=== PATIENT | female | born 1950 | race Caucasian/White ===

== ENCOUNTER → 2023-12-24 10:45 | Outpatient (REF) | payer MEDICARE, OTHER, SELFPAY | LOC: RAD 10:45 | PROVIDERS: ATTENDING PHYSICIAN Surgery Vascular Surgery; FAMILY PHYSICIAN Family Medicine | DX: Z01.818 Encounter for other preprocedural examination (principal); I82.611 Acute embolism and thrombosis of superficial veins of right upper extremity | CPT/HCPCS: 93986 ==

== ENCOUNTER 2025-03-24 13:45 | Emergency (ER) | payer MEDICARE, OTHER, SELFPAY ==
[2025-03-24] VITALS (11 sets, daily range): BP systolic 120–206; BP diastolic 61–82; BMI 24.2
[2025-03-24 14:25] LABS: % Basophils 1.4 % (0-2); % Immature Granulocytes 0.2 % (0-0.5); % Lymphocytes 25.5 % (20.5-51.1); % Monocytes 6.5 % (1.7-9.3); % Neutrophils 59.4 % (42.2-75.2); Absolute Basophils 0.1 10^3/uL (0-0.2); Absolute Eosinophils 0.3 10^3/uL (0-0.7); Absolute Lymphocytes 1.1 10^3/uL (1.2-3.4); Absolute Monocytes 0.3 10^3/uL (0.1-0.6); Absolute Neutrophils 2.6 10^3/uL (1.4-6.5); Hemoglobin 11.7 g/dL (12.0-16.0); Mean Corp Hgb Conc. 33.4 g/dL (33.0-37.0); Mean Corpuscular Hgb 32.3 pg (27.0-31.0); Mean Corpuscular Volume 96.7 fL (81.0-99.0); Mean Platelet Volume 10.5 fL (7.4-10.4); Nucleated Red Blood Cells % 0 %; Platelet Count 147 10^3/uL (130-400); Red Blood Cell Count 3.62 10^6/uL (4.20-5.40); Red Cell Dist. Width 12.8 % (11.5-14.5); White Blood Cell Count 4.4 10^3/uL (4.8-10.8)
[2025-03-24 14:46] LABS: Troponin I < 0.012 ng/ml
[2025-03-24 15:08] LABS: ALT (SGPT) 13 U/L (0-35); AST (SGOT) 15 U/L (14-36); Albumin 3.8 g/dl (3.5-5.0); Alkaline Phosphatase 100 U/L (38-126); Blood Urea Nitrogen 16 mg/dl (7-17); Calcium 9.2 mg/dl (8.4-10.2); Carbon Dioxide 30 mmol/L (22-30); Chloride 100 mmol/L (98-107); Glucose 104 mg/dl (70-99); Potassium 3.9 mmol/L (3.5-5.1); Sodium 140 mmol/L (135-145); Total Bilirubin 1.1 mg/dl (0.2-1.3); Total Protein 6.4 g/dl (6.3-8.2); eGFR 19.02
--- NOTE | 2025-03-24 15:30 | ED.GENMED ---
History of Present Illness
<Stacia Salmon PA-C - Last Filed: 03/26/25 00:13>
General
Chief Complaint: Chest Problem
Source: patient and spouse ( at bedside)
Exam Limitations: none
Time Seen by Provider: 03/24/25 14:18
Nursing documentation reviewed up to this point in time: agreed with
History of Present Illness
History of Present Illness:
Patient is a 74-year-old female with history of CVA, atrial fibrillation on Eliquis, CHF, CAD, hypertension, hyperlipidemia, CKD on dialysis, bilateral BKA who presents to the emergency department from dialysis session with complaints of chest
tightness, shortness of breath, and heart palpitations. Patient states chest tightness has essentially resolved prior to arrival to ED. She was unable to complete full dialysis session secondary to symptoms. She denies any fever, cough, abdominal
pain or tearing back pain.
She does report a a burning phantom pain in her bilateral lower extremities.
Patient has been receiving dialysis for 2 years and has never experienced similar symptoms.
Past History
<Stacia Salmon PA-C - Last Filed: 03/26/25 00:13>
Past History
ED Past Medical History: Arrthythmia (Atrial fib), CAD, CHF, CVA (X 2), GERD, HTN, Hypercholesterolemia, IDDM, [place], Renal failure (Will be starting dialysis), Psychiatric (anxiety, depression) and Other (Gastritis with intractiable N/V, Rectal
abscess, Colitis, Indwelling vasquez, UTI, Cellulitis, )
ED Past Surgical History: Cardiac (Angioplasty and stenting X2), , Gynecological and Other (Bilateral BK amputation, Prior-partial right foot amputation)
Patient has exhibited threatening behavior?: No
PSI?: No
Social History
Tobacco: Non-smoker
Alcohol: None
Drug: None
Personal:
Living: with family
Employment: Disabled
Family History
Family History: Hypertension
Review of Systems
<Stacia Salmon PA-C - Last Filed: 03/26/25 00:13>
Review of Systems
Allergies reviewed?: Yes
All Other Systems: ROS reviewed and negative except as documented in HPI and ROS
Phy Exam
<Stacai Salmon PA-C - Last Filed: 03/26/25 00:13>
Physical Exam
Physical Exam:
Vitals: Hypertensive, otherwise vital signs are stable
General: Patient is well appearing, no acute distress. Nontoxic appearing
Skin: Warm and dry, no rashes or lesions
Head: Normocephalic, atraumatic
Eyes: Sclera nonicteric. EOMs intact. Pupils equal round and reactive to light bilaterally. No nystagmus.
Throat: Protecting airway
Neck: Normal ROM, no cervical spine tenderness, no meningismus
Cardiac: Regular rate and rhythm, no murmurs. Dialysis catheter on left chest wall
Pulm: Normal respiratory effort, no wheezes, rales, rhonchi heard on exam.
Abdomen: Abdomen soft and nontender
Extremities: Bilateral BKA
Neuro: AAOx3. Normal finger to nose. No focal deficits
Psychiatric: Normal affect.
Course
<Stacia Salmon PA-C - Last Filed: 03/26/25 00:13>
Orders/Labs/Results
Orders:
Orders
03/24/25 13:48
Electrocardiogram (*1) Urgent
Reason for Study: Chest Pain
EKG- Treatment ONCE
03/24/25 14:09
Complete Blood Count/With Diff Urgent
Comprehensive Metabolic Panel Urgent
Troponin I Urgent
03/24/25 14:48
CR Chest - 2 Views Urgent
Comment:
Reason For Exam: SOB, chest tightness
03/24/25 15:55
CT Head W/o Iv Contrast Urgent
Comment:
Reason For Exam: dizziness, HTN
03/24/25 17:10
Electrocardiogram (*1) Urgent
Reason for Study: Chest Pain
EKG- Treatment ONCE
03/24/25 18:01
Troponin I Urgent
03/24/25 18:04
Straight cath- Treatment ONCE
03/24/25 18:07
EKG- Treatment ONCE
03/24/25 18:22
Urinalysis Reflex To Culture Urgent
Date Specimen was Collected: 03/24/25
Time Specimen was Collected: 18:21
Urine Microscopic Reflex Cult Urgent
Urine Culture Urgent
[facility] Source: U
Specimen Description:
Date Specimen was Collected: 03/24/25
Time Specimen was Collected: 18:21
03/24/25 19:16
Amoxicillin 500 mg/Clav 125 mg [Augmentin 500 mg/125 mg] 1 tablet PO NOW STA
Abnormal Lab Results
03/24/25 03/24/25
14:09 18:22
WBC 4.4 L 10^3/uL
(4.8-10.8)
RBC 3.62 L 10^6/uL
(4.20-5.40)
Hgb 11.7 L g/dL
(12.0-16.0)
Hct 35.0 L %
(37.0-47.0)
MCH 32.3 H pg
(27.0-31.0)
MPV 10.5 H fL
(7.4-10.4)
Absolute Lymphs (auto) 1.1 L 10^3/uL
(1.2-3.4)
Eosinophils % 7.0 H %
(0-6)
Creatinine 2.6 H mg/dL
(0.6-1.0)
Glucose 104 H mg/dl
(70-99)
Ur Occult Blood Reflex 2+ A
(Negative)
Leukocyte Esterase Rfl 3+ A
(Negative)
Urine WBC (Reflex) >100 A /HPF
(0-5)
Urine Bacteria (Reflex) Many A
(Negative)
Urine Albumin (Reflex) 2+ A
(Neg - Trace)
03/24/25 14:09
03/24/25 14:09
Vital Signs
Initial and Last Documented VS:
Initial Vital Signs
Temp Pulse Resp BP Pulse Ox
98.0 F 65 16 166/76 93
03/24/25 13:46 03/24/25 13:46 03/24/25 13:46 03/24/25 13:46 03/24/25 13:46
Last Documented Vital Signs
Temp Pulse Resp BP Pulse Ox
98.0 F 64 14 159/63 95
03/24/25 13:46 03/24/25 19:30 03/24/25 19:30 03/24/25 19:00 03/24/25 19:30
<Wilmar Mejia, DO - Last Filed: 03/24/25 19:44>
Orders/Labs/Results
Orders:
Orders
03/24/25 13:48
Electrocardiogram (*1) Urgent
Reason for Study: Chest Pain
EKG- Treatment ONCE
03/24/25 14:09
Complete Blood Count/With Diff Urgent
Comprehensive Metabolic Panel Urgent
Troponin I Urgent
03/24/25 14:48
CR Chest - 2 Views Urgent
Comment:
Reason For Exam: SOB, chest tightness
03/24/25 15:55
CT Head W/o Iv Contrast Urgent
Comment:
Reason For Exam: dizziness, HTN
03/24/25 17:10
Electrocardiogram (*1) Urgent
Reason for Study: Chest Pain
EKG- Treatment ONCE
03/24/25 18:01
Troponin I Urgent
03/24/25 18:04
Straight cath- Treatment ONCE
03/24/25 18:07
EKG- Treatment ONCE
03/24/25 18:22
Urinalysis Reflex To Culture Urgent
Date Specimen was Collected: 03/24/25
Time Specimen was Collected: 18:21
Urine Microscopic Reflex Cult Urgent
Urine Culture Urgent
[facility] Source: U
Specimen Description:
Date Specimen was Collected: 03/24/25
Time Specimen was Collected: 18:21
03/24/25 19:16
Amoxicillin 500 mg/Clav 125 mg [Augmentin 500 mg/125 mg] 1 tablet PO NOW STA
Abnormal Lab Results
03/24/25 03/24/25
14:09 18:22
WBC 4.4 L 10^3/uL
(4.8-10.8)
RBC 3.62 L 10^6/uL
(4.20-5.40)
Hgb 11.7 L g/dL
(12.0-16.0)
Hct 35.0 L %
(37.0-47.0)
MCH 32.3 H pg
(27.0-31.0)
MPV 10.5 H fL
(7.4-10.4)
Absolute Lymphs (auto) 1.1 L 10^3/uL
(1.2-3.4)
Eosinophils % 7.0 H %
(0-6)
Creatinine 2.6 H mg/dL
(0.6-1.0)
Glucose 104 H mg/dl
(70-99)
Ur Occult Blood Reflex 2+ A
(Negative)
Leukocyte Esterase Rfl 3+ A
(Negative)
Urine WBC (Reflex) >100 A /HPF
(0-5)
Urine Bacteria (Reflex) Many A
(Negative)
Urine Albumin (Reflex) 2+ A
(Neg - Trace)
03/24/25 14:09
03/24/25 14:09
Vital Signs
Initial and Last Documented VS:
Initial Vital Signs
Temp Pulse Resp BP Pulse Ox
98.0 F 65 16 166/76 93
03/24/25 13:46 03/24/25 13:46 03/24/25 13:46 03/24/25 13:46 03/24/25 13:46
Last Documented Vital Signs
Temp Pulse Resp BP Pulse Ox
98.0 F 64 14 159/63 95
03/24/25 13:46 03/24/25 19:30 03/24/25 19:30 03/24/25 19:00 03/24/25 19:30
<Stacia Salmon PA-C - Last Filed: 03/26/25 00:13>
MDM/Problems Addressed
Differential Diagnosis Includes:
Not limited to: Acute dehydration, medication side effect, electrolyte abnormality, viral illness, ACS, etc.
MDM/Problems Addressed:
74 year-old female with history as documented presents from dialysis with chest tightness and lightheadedness. Chest tightness and shortness breath mainly resolved by arrival ED. Patient has stable vital signs. Physical exam as above. Differential
broad will check EKG, screening labs, chest x-ray. Plan to trend troponins. Patient received fluids at dialysis prior to ED eval. Will hold further fluids at this time.
Update: Labs reviewed. No acute abnormalities. Initial troponin undetectable with nonischemic EKG. CXR NAD. On reassessment � Patient reports sensation of movement now including the ceiling light moving in front of her and feels that she is lifting
off the bed. Patient�s blood pressure did elevate acutely � does not seem like typical vertigo. Will check CT had to rule out intracranial abnormality. Patient otherwise stable and remains neurologically intact on exam.
Update: CT head without acute findings. Patients symptoms have resolved without intervention. Workup thus far essentially negative. Troponin undetectable x2. Unknown etiology for patients symptoms today although do not suspect central process or
acute cardiac emergency. Patient was found to have a UTI after complaining of dysuria. While I do not suspect this is etiology for today�s symptoms, will treat with antibiotics. Based on prior culture sensitivity and multiple antibiotic allergies
will start Augmentin. At this point feel patient stable for discharge home. Close return precautions discussed. Case discussed w/ attending physician.
Chronic conditions affecting care:
CKD on dialysis, atrial fibrillation on Eliquis
Acute Exacerbation and/or Progression of Chronic Illness:
N/A
<Stacia Salmon PA-C - Last Filed: 03/26/25 00:13>
*Radiology
Radiology exam reviewed: preliminary read by ED provider (CXR reviewed by me - no acute abnormalities) and radiology read reviewed
*Pulse Oximetry
Patient hypoxic: no
*EKG
Interpreted by ED Provider?: Yes
EKG Intrepretation Date: 03/24/25
Interpretation: abnormal
Comparison EKG: no changes
Heart Rate: 58
Rate: bradycardiac
Rhythm: sinus
Ischemia: no ischemia
*Asset Availability Leader Interpretation
Rate: normal
Interpretation: normal
Heart Rate: 60
Rhythm: sinus
*Critical Care Note
Total Time (30-74mins, 75-104mins- exclusive of procedures): Not Applicable
ED Attending Note
<Stacia Salmon PA-C - Last Filed: 03/26/25 00:13>
-
Portions of this chart may have been created with voice recognition software.� Occasional wrong word or��sound alike� substitutions may have occurred due to the inherent limitations of voice recognition software.
<Wilmar Mejia DO - Last Filed: 03/24/25 19:44>
ED Attending Note
I performed the substantive portion of visit, reviewed & personally made and approve the management plan that is documented in note by myself or ANANT.: Yes
ED Attending Note:
Case reviewed. Labs reviewed.
Discharge Plan
Departure
Patient Disposition: Home (Routine Discharge)
Date of Disposition: 03/24/25
Time of Disposition: 19:25
Patient with high blood pressure during this ER visit?: Yes
Condition: Good
Covid-19: Not Applicable
Discharge Problem:
Lightheadedness, Chest pain, Acute UTI
Instructions: Chest Pain (DC), Urinary tract infection in adults - ED discharge instructions, BLOOD PRESSURE
Prescriptions:
New
amoxicillin-pot clavulanate [Augmentin] 500-125 mg tablet
1 tab PO BID 5 Days Qty: 10 0RF
No Action
insulin aspart U-100 [Novolog FlexPen U-100 Insulin] 300 UNITS/3 ML insulin pen
2 sliding scale dose SC AC
gabapentin 100 MG capsule
100 mg PO BID
atorvastatin 40 MG tablet
40 mg PO HS
docusate sodium [Colace] 100 mg Capsule
100 mg PO QPM
senna 8.6 mg Capsule
8.6 mg PO DAILY
amiodarone [Pacerone] 200 MG tablet
200 mg PO DAILY
cholecalciferol (vitamin D3) [Vitamin D3] 25 mcg (1,000 unit) Capsule
25 mcg PO MOWEFR
Eliquis 5 mg Tablet
5 mg PO BID
Probiotic 3 billion cell Capsule
3,000 mmu cells PO DAILY
polyethylene glycol 3350 [HealthyLax] 17 gram powder in packet
17 g PO DAILY
tamsulosin 0.4 mg capsule
0.4 mg PO DAILY
cetirizine [24Hour Allergy] 10 mg tablet
10 mg PO DAILY Qty: 30 0RF
sertraline 50 MG tablet
50 mg PO DAILY 0RF
Referrals:
Adolfo Cruz DO [Family Provider] - Follow up in 5-7 days
Activity Restrictions/Additional Instructions:
RETURN TO THE EMERGENCY DEPARTMENT WITH ANY CHEST PAIN, SHORTNESS OF BREATH, DIZZINESS, FEVERS, SEVERE ABDOMINAL PAIN, OR ANY OTHER CONCERNS
- As discussed�your urine is infected in the emergency department. We have started you on a course of Augmentin that you should take twice a day for the next 5 days. You should not take this on an empty stomach. Please return with any signs of
allergic reaction.
- Your CT head and chest x-ray showed no acute abnormalities.
- Continue to take your medications as prescribed. Continue dialysis as scheduled. Stay well-hydrated.
- Follow-up with primary care for further evaluation/management and to ensure that symptoms are improving
Monitor your symptoms closely and return to the emergency department with any acute worsening/new symptoms or any other concerns
Interventions
Interventions:
*Risk Screen - Suicide Last Done: 03/24/25 15:58
*General Assessment Last Done: 03/24/25 15:56
*Neglect/Abuse Screening Last Done: 03/24/25 15:58
*ED COVID-19 Vaccine History Last Done: 03/24/25 15:56
*Nursing Disposition Last Done: 03/24/25 20:34
ED- Cardiac Assessment Last Done: 03/24/25 16:00
ED- Pulmonary Assessment Last Done: 03/24/25 16:00
Discharge Date and Time
Discharge Date/Time: 03/24/25 20:35
Print Language: ROMANSH
[2025-03-24 18:31] LABS: Urine Albumin 2+ (Neg - Trace); Urine Bilirubin Negative (Negative); Urine Character Clear (Clear); Urine Color Yellow; Urine Glucose Negative (Negative); Urine Ketone Negative (Negative); Urine Leukocyte 3+ (Negative); Urine Nitrite Negative (Negative); Urine Occult Blood 2+ (Negative); Urine Urobilinogen Negative (Neg - 1+)
[2025-03-24 18:32] LABS: Troponin I < 0.012 ng/ml
[2025-03-24 18:45] LABS: Urine Bacteria Many (Negative); Urine Red Blood Cell 0-2 /HPF (0-2); Urine Squamous Cell 0-2 /LPF (Few); Urine White Cell >100 /HPF (0-5)
[2025-03-24] MEDS: AUGMENTIN 500 MG/125 MG 1 TABLET PO (19:30)
== END 2025-03-24 20:35 | disposition home or self-care (01) ==
LOC: EMR 13:45
PROVIDERS: Physician Assistant; EMERGENCY PHYSICIAN Emergency Medicine; FAMILY PHYSICIAN Family Medicine
DX: N39.0 Urinary tract infection, site not specified (principal); R07.89 Other chest pain; R42 Dizziness and giddiness; E11.22 Type 2 diabetes mellitus with diabetic chronic kidney disease; I13.2 Hypertensive heart and chronic kidney disease with heart failure and with stage 5 chronic kidney disease, or end stage renal disease; I50.9 Heart failure, unspecified; N18.6 End stage renal disease; Z99.2 Dependence on renal dialysis; E78.00 Pure hypercholesterolemia, unspecified; I25.10 Atherosclerotic heart disease of native coronary artery without angina pectoris; I48.91 Unspecified atrial fibrillation; Z79.01 Long term (current) use of anticoagulants; Z79.4 Long term (current) use of insulin; Z86.73 Personal history of transient ischemic attack (TIA), and cerebral infarction without residual deficits; Z87.19 Personal history of other diseases of the digestive system; Z89.511 Acquired absence of right leg below knee; Z89.512 Acquired absence of left leg below knee; Z95.5 Presence of coronary angioplasty implant and graft
CPT/HCPCS: 99285; 70450; 71046; 80053; 81003; 81015; 84484; 85025; 87077; 87086; 93005

== ENCOUNTER → 2025-04-29 09:55 | Outpatient (REF) | payer MEDICARE, OTHER, SELFPAY | LOC: RCS 09:55 | PROVIDERS: ATTENDING PHYSICIAN Internal Medicine; FAMILY PHYSICIAN Family Medicine | DX: I48.0 Paroxysmal atrial fibrillation (principal); I34.0 Nonrheumatic mitral (valve) insufficiency; I50.32 Chronic diastolic (congestive) heart failure; I25.2 Old myocardial infarction | CPT/HCPCS: 93306 ==

== ENCOUNTER 2025-06-20 21:16 | Inpatient (IN) | payer MEDICARE, OTHER, SELFPAY ==
[2025-06-20 13:11] VITALS: BP 166/66
[2025-06-20 15:11] VITALS: BP 176/89
[2025-06-20 15:34] VITALS: BMI 23.7
--- NOTE | 2025-06-20 15:44 | ED.GENMED ---
History of Present Illness
<BIJAN Figueroa - Last Filed: 06/21/25 17:24>
General
Chief Complaint: Back Pain
Source: patient
Exam Limitations: none
Time Seen by Provider: 06/20/25 14:51
Nursing documentation reviewed up to this point in time: agreed with
History of Present Illness
History of Present Illness:
Patient is a 74-year-old female with past medical history of diabetes, bilateral lower extremity amputations, end-stage renal disease on dialysis,(mwf) CAD CHF hypertension hyperlipidemia IN CVA presents to the ER for evaluation. Patient reports
for the past 1-1/2 weeks she has had right-sided back pain which is worse over the past 2 days. She has pain to the right back/mid back scacpular region hich wraps around to her right side and right breast. She reports pain is worse with taking a
deep breath twisting turning. She is on eliquis for afib and has not missed dose.
She also complains of some burning with urination off-and-on for the past week but only make small amt of urine. She does complain of some burning with urination and then gets chills after.
Past History
<BIJAN Figueroa - Last Filed: 06/21/25 17:24>
Past History
ED Past Medical History: Arrthythmia (Atrial fib), CAD, CHF, CVA (X 2), GERD, HTN, Hypercholesterolemia, IDDM, IN, Renal failure (Will be starting dialysis), Psychiatric (anxiety, depression) and Other (Gastritis with intractiable N/V, Rectal
abscess, Colitis, Indwelling vasquez, UTI, Cellulitis, )
ED Past Surgical History: Cardiac (Angioplasty and stenting X2), , Gynecological and Other (Bilateral BK amputation, Prior-partial right foot amputation)
Patient has exhibited threatening behavior?: No
PSI?: No
Social History
Tobacco: Non-smoker
Alcohol: None
Drug: None
Personal:
Living: with family
Employment: Disabled
Family History
Family History: Hypertension
Phy Exam
<BIJAN Figueroa - Last Filed: 06/21/25 17:24>
General Physical Exam
General Presentation: no apparent distress
General age: appears stated age
General Skin: warm and dry
General Habitus: elderly
General Mental: alert
General Hydration: appears well hydrated
Cardiovascular Exam
Cardiovascular Exam: regular rate/rhythm, no murmur and normal peripheral pulses
Pulmonary Exam
Pulmonary Exam: lungs clear and no respiratory distress
Gastrointestinal Exam
Gastrointestinal Exam: non tender and soft
Neurological Exam
Neurological Exam: alert and oriented x3
Musculoskeletal Exam
Musculoskeletal Exam: other (+ b/l bka )
Skin Exam
Skin Exam: normal color and warm/dry
Psychiatric Exam
Psychiatric Exam: normal mood/affect
Course
<BIJAN Figueroa - Last Filed: 06/21/25 17:24>
Orders/Labs/Results
Orders:
Orders
06/20/25 Dinner
Regular
At Your Request: Full Participation
06/20/25 15:50
Electrocardiogram (*1) Stat
Reason for Study: Other
Other Reason for Exam: chest pain
CT Pe/abd/pel W Urgent
Reason For Exam: right back pain radiating to chest, right flank pain
Bladder Scan- Treatment ONCE
Cardiac Monitoring- Treatment ONCE
EKG- Treatment ONCE
IV Insert/Care/Rem.- Treatment PRN
Pharmacy Request to Place See Dose Instructions PO NOW STA
Discontinue all Active Warfarin orders?: Yes
06/20/25 16:[address] See Dose Instructions IV DIRECTED
06/20/25 16:03
UA Reflex to Culture [Urinalysis Reflex To Culture] Urgent
Date Specimen was Collected: 06/20/25
Time Specimen was Collected: 16:02
Urine Microscopic Reflex Cult Urgent
Urine Culture Urgent
ROSAURA Source: U
Specimen Description:
Date Specimen was Collected: 06/20/25
Time Specimen was Collected: 16:02
06/20/25 16:41
CMP [Comprehensive Metabolic Panel] Urgent
Complete Blood Count/With Diff Urgent
06/20/25 17:09
Morphine Sulfate 4 mg .ROUTE .STK-MED ONE
06/20/25 17:11
Morphine Sulfate 4 mg IV NOW STA
06/20/25 18:18
CefTRIAXone [Rocephin] 1,000 mg IV NOW STA
06/20/25 20:35
Admit/Transfer Patient As Directed
Co-Sign Provider:
Level of Care: Inpatient admission
Assign to:: Medical/Surgical
Physician / Group: christy
Diagnosis: uti
Reason for Hospitalization: uti
Expected length of stay greater than two midnights?: Yes
ELOS- Estimated Length of Stay in days: 2
I certify the patient meets the requirements for IP care: Yes
Code Status As Directed
Resuscitation Status: Do not resuscitate
Reached after discussion with pt or family/Healthcare POA: Yes
PRN Pain Medication Management As Directed
May give lesser potent ordered pain med per pt: Yes
preference::
Protocol:: Medication orders for pain may be administered in a
manner that supports deferring to patient preference
when the pt is:
- Requesting an ordered lesser potent pain medication.
Least to most potent pain medications are defined
as: acetaminophen < NSAID < tramadol < opioids
(morphine, oxycodone, hydromorphone).
- Requesting a lesser dose of the same medication IF
ORDERED.
- Requesting a less intrusive route of administration
if both routes are prescribed by the provider (PO <
IV).
06/20/25 20:36
DNR Bracelet Application ONCE
06/20/25 22:04
HYDROmorphone [Dilaudid] 0.5 mg IV Q4HPRN PRN
06/20/25 22:04
VTE Contraindication Routine
VTE Mechanical Device Contraindication: Medical Contraindication
Pharmocologic Contraindication: Medical Contraindication
Activity As Directed
Activity Level: As Tolerated
Vital Signs As Directed
Frequency: Per unit guidelines
06/21/25 07:29
Complete Blood Count/With Diff IN AM
Comprehensive Metabolic Panel IN AM
06/21/25 20:00
CefTRIAXone [Rocephin] 1,000 mg IV Q24H
Abnormal Lab Results
06/20/25 06/20/25
16:03 16:41
RBC 3.51 L 10^6/uL
(4.20-5.40)
Hgb 11.3 L g/dL
(12.0-16.0)
Hct 34.3 L %
(37.0-47.0)
MCH 32.2 H pg
(27.0-31.0)
MCHC 32.9 L g/dL
(33.0-37.0)
MPV 10.9 H fL
(7.4-10.4)
Absolute Lymphs (auto) 0.9 L 10^3/uL
(1.2-3.4)
Lymphocytes % 19.0 L %
(20.5-51.1)
Eosinophils % 8.5 H %
(0-6)
Carbon Dioxide 31 H mmol/L
(22-30)
BUN 28 H mg/dl
(7-17)
Creatinine 4.7 H* mg/dL
(0.6-1.0)
Glucose 105 H mg/dl
(70-99)
AST 12 L U/L
(14-36)
Ur Occult Blood Reflex 3+ A
(Negative)
Leukocyte Esterase Rfl 3+ A
(Negative)
Urine WBC (Reflex) >100 A /HPF
(0-5)
Urine Bacteria (Reflex) Many A
(Negative)
Urine Albumin (Reflex) 3+ A
(Neg - Trace)
06/20/25 16:41
06/20/25 16:41
Vital Signs
Initial and Last Documented VS:
Initial Vital Signs
Temp Pulse Resp BP Pulse Ox
97.8 F 60 16 166/66 99
06/20/25 13:11 06/20/25 13:11 06/20/25 13:11 06/20/25 13:11 06/20/25 13:11
Last Documented Vital Signs
Temp Pulse Resp BP Pulse Ox
97.8 F 55 16 158/71 98
06/21/25 15:30 06/21/25 15:30 06/21/25 15:30 06/21/25 15:30 06/21/25 15:30
<Cayla Santos PA-C - Last Filed: 06/21/25 03:13>
Orders/Labs/Results
Orders:
Orders
06/20/25 Dinner
Regular
At Your Request: Full Participation
06/20/25 15:50
Electrocardiogram (*1) Stat
Reason for Study: Other
Other Reason for Exam: chest pain
CT Pe/abd/pel W Urgent
Reason For Exam: right back pain radiating to chest, right flank pain
Bladder Scan- Treatment ONCE
Cardiac Monitoring- Treatment ONCE
EKG- Treatment ONCE
IV Insert/Care/Rem.- Treatment PRN
Pharmacy Request to Place See Dose Instructions PO NOW STA
Discontinue all Active Warfarin orders?: Yes
06/20/25 16:[address] See Dose Instructions IV DIRECTED
06/20/25 16:03
UA Reflex to Culture [Urinalysis Reflex To Culture] Urgent
Date Specimen was Collected: 06/20/25
Time Specimen was Collected: 16:02
Urine Microscopic Reflex Cult Urgent
Urine Culture Urgent
ROSAURA Source: U
Specimen Description:
Date Specimen was Collected: 06/20/25
Time Specimen was Collected: 16:02
06/20/25 16:41
CMP [Comprehensive Metabolic Panel] Urgent
Complete Blood Count/With Diff Urgent
06/20/25 17:09
Morphine Sulfate 4 mg .ROUTE .STK-MED ONE
06/20/25 17:11
Morphine Sulfate 4 mg IV NOW STA
06/20/25 18:18
CefTRIAXone [Rocephin] 1,000 mg IV NOW STA
06/20/25 20:35
Admit/Transfer Patient As Directed
Co-Sign Provider:
Level of Care: Inpatient admission
Assign to:: Medical/Surgical
Physician / Group: christy
Diagnosis: uti
Reason for Hospitalization: uti
Expected length of stay greater than two midnights?: Yes
ELOS- Estimated Length of Stay in days: 2
I certify the patient meets the requirements for IP care: Yes
Code Status As Directed
Resuscitation Status: Do not resuscitate
Reached after discussion with pt or family/Healthcare POA: Yes
PRN Pain Medication Management As Directed
May give lesser potent ordered pain med per pt: Yes
preference::
Protocol:: Medication orders for pain may be administered in a
manner that supports deferring to patient preference
when the pt is:
- Requesting an ordered lesser potent pain medication.
Least to most potent pain medications are defined
as: acetaminophen < NSAID < tramadol < opioids
(morphine, oxycodone, hydromorphone).
- Requesting a lesser dose of the same medication IF
ORDERED.
- Requesting a less intrusive route of administration
if both routes are prescribed by the provider (PO <
IV).
06/20/25 20:36
DNR Bracelet Application ONCE
06/20/25 22:04
HYDROmorphone [Dilaudid] 0.5 mg IV Q4HPRN PRN
06/20/25 22:04
VTE Contraindication Routine
VTE Mechanical Device Contraindication: Medical Contraindication
Pharmocologic Contraindication: Medical Contraindication
Activity As Directed
Activity Level: As Tolerated
Vital Signs As Directed
Frequency: Per unit guidelines
06/21/25 07:29
Complete Blood Count/With Diff IN AM
Comprehensive Metabolic Panel IN AM
06/21/25 20:00
CefTRIAXone [Rocephin] 1,000 mg IV Q24H
Abnormal Lab Results
06/20/25 06/20/25
16:03 16:41
RBC 3.51 L 10^6/uL
(4.20-5.40)
Hgb 11.3 L g/dL
(12.0-16.0)
Hct 34.3 L %
(37.0-47.0)
MCH 32.2 H pg
(27.0-31.0)
MCHC 32.9 L g/dL
(33.0-37.0)
MPV 10.9 H fL
(7.4-10.4)
Absolute Lymphs (auto) 0.9 L 10^3/uL
(1.2-3.4)
Lymphocytes % 19.0 L %
(20.5-51.1)
Eosinophils % 8.5 H %
(0-6)
Carbon Dioxide 31 H mmol/L
(22-30)
BUN 28 H mg/dl
(7-17)
Creatinine 4.7 H* mg/dL
(0.6-1.0)
Glucose 105 H mg/dl
(70-99)
AST 12 L U/L
(14-36)
Ur Occult Blood Reflex 3+ A
(Negative)
Leukocyte Esterase Rfl 3+ A
(Negative)
Urine WBC (Reflex) >100 A /HPF
(0-5)
Urine Bacteria (Reflex) Many A
(Negative)
Urine Albumin (Reflex) 3+ A
(Neg - Trace)
06/20/25 16:41
06/20/25 16:41
Vital Signs
Initial and Last Documented VS:
Initial Vital Signs
Temp Pulse Resp BP Pulse Ox
97.8 F 60 16 166/66 99
06/20/25 13:11 06/20/25 13:11 06/20/25 13:11 06/20/25 13:11 06/20/25 13:11
Last Documented Vital Signs
Temp Pulse Resp BP Pulse Ox
97.8 F 55 16 158/71 98
06/21/25 15:30 06/21/25 15:30 06/21/25 15:30 06/21/25 15:30 06/21/25 15:30
<BIJAN Figueroa - Last Filed: 06/21/25 17:24>
MDM/Problems Addressed
MDM/Problems Addressed:
As documented patient is a 74-year-old female with significant past medical history presents with right-sided back pain which wraps around to her right breast. She does feel pain with deep breath. However anticoagulated on Eliquis for A-fib and
has not missed a dose. She in addition complains of burning with urination although she does make little urine. She is a dialysis patient. She presents afebrile with no recent fevers but does report chills after urinating. She is afebrile here
with normal white count. She is a dialysis patient creatinine is 4.7. Urinalysis obtained and does appear infected with greater than 100 white blood cells.
In the setting of back pain and UTI CAT scan of abdomen ordered to rule out pyelonephritis. In addition PE study ordered with pain with deep breath though unlikely. Right ankle but no and she does not like she does not look like like she is yeah
yeah yeah is exactly speaking she is eating because she had like because of alcohol like me
CT pending ; care of pt at this time transferred to [facility] PAC . Rocephin ordered for UTI patient will most likely need admission
Chronic conditions affecting care:
End-stage renal disease A-fib anticoagulation CVA bilateral BKA CAD heart failure
<BIJAN Figueroa - Last Filed: 06/21/25 17:24>
*Radiology
Radiology exam reviewed: radiology read reviewed
*Pulse Oximetry
SaO2: 99
Oxygen Mode of Delivery: Room air
<Cayla Santos PA-C - Last Filed: 06/21/25 03:13>
*Pulse Oximetry
Patient hypoxic: no
*Critical Care Note
Total Time (30-74mins, 75-104mins- exclusive of procedures): Not Applicable
<Cayla Santos PA-C - Last Filed: 06/21/25 03:13>
Update Note
Update Note:
Update
I received patient in sign-out
My exam patient appears chronically ill
Patient has acute UTI with associated right flank pain patient was started on Rocephin we will refer to hospitalist for admission
CT negative for PE
ED Attending Note
<BIJAN Figueroa - Last Filed: 06/21/25 17:24>
-
Portions of this chart may have been created with voice recognition software.� Occasional wrong word or��sound alike� substitutions may have occurred due to the inherent limitations of voice recognition software.
Discharge Plan
Departure
Patient Disposition: Admit
Date of Disposition: 06/20/25
Time of Disposition: 20:20
Presentation/result/management discussed w/ accepting MD/DO: Hospitalist
Patient with high blood pressure during this ER visit?: Yes
Condition: Good
Discharge Problem:
Urinary tract infection
Interventions
Interventions:
*Risk Screen - Suicide Last Done: 06/20/25 13:15
*Neglect/Abuse Screening Last Done: 06/20/25 13:15
*ED- Fall Risk Assessment Last Done: 06/20/25 21:53
*ED COVID-19 Vaccine History Last Done: 06/20/25 21:53
*Nursing Disposition Last Done: 06/20/25 21:53
ED-Musculoskeletal Assessment Last Done: 06/20/25 15:36
Discharge Date and Time
Discharge Date/Time: 06/20/25 22:13
[2025-06-20 16:11] LABS: Urine Character Clear (Clear)
[2025-06-20 16:31] LABS: Urine Squamous Cell 0-2 /LPF (Few)
[2025-06-20 16:32] LABS: Urine White Cell >100 /HPF (0-5)
[2025-06-20 16:49] LABS: Hematocrit 34.3 % (37.0-47.0); Hemoglobin 11.3 g/dL (12.0-16.0); Mean Corp Hgb Conc. 32.9 g/dL (33.0-37.0); Mean Corpuscular Volume 97.7 fL (81.0-99.0); Nucleated Red Blood Cells % 0 %; Platelet Count 150 10^3/uL (130-400); Red Cell Dist. Width 13.8 % (11.5-14.5)
[2025-06-20] MEDS: MORPHINE SULFATE 4 MG IV (17:16)
[2025-06-20 17:17] VITALS: BP 208/100
[2025-06-20 17:18] LABS: ALT (SGPT) 11 U/L (0-35); AST (SGOT) 12 U/L (14-36); Albumin 4.0 g/dl (3.5-5.0); Alkaline Phosphatase 99 U/L (38-126); Blood Urea Nitrogen 28 mg/dl (7-17); Calcium 9.1 mg/dl (8.4-10.2); Carbon Dioxide 31 mmol/L (22-30); Chloride 99 mmol/L (98-107); Estimated Creatinine Clearance 11 ml/min; Glucose 105 mg/dl (70-99); Potassium 4.1 mmol/L (3.5-5.1); Sodium 137 mmol/L (135-145); Total Protein 6.8 g/dl (6.3-8.2); eGFR 9.35
[2025-06-20 18:00] VITALS: BP 167/71
[2025-06-20] MEDS: ROCEPHIN 1000 MG IV (19:51)
--- NOTE | 2025-06-20 20:39 | HPS.HSE ---
Family Physician
-
Family Physician: Adolfo Cruz
Chief Complaint
-
back pain
History of Present Illness
74-year-old female past medical history of ESRD on hemodialysis Saturday, Saturday, Saturday, left upper extremity steal syndrome, paroxysmal atrial fibrillation on Eliquis, diabetes, diabetic neuropathy, hyperlipidemia, hypertension, PAD status post
bilateral BKA, chronic HFpEF, CAD, CVA, presenting with right-sided back pain for the past 1-1/2-week which is gotten worse over the past 2 days. Pain is in the right mid back and goes all the way down to the flank and also radiates around under
the right breast. Pain is worse with taking a deep breath and moving. Also complained of some burning with urination for the past week but only make small amount of urine. Also with chills. He had vomiting today. No abdominal pain but does have
pressure in the lower abdomen.
She has chronic pains of the extremities which is not new. She denies any chest pain or shortness of breath. Denies any heavy lifting although she does have to lift herself out of the wheelchair regularly.
She denies smoking or alcohol use.
Medical History
Past Medical History
Past Medical History: Reports Other (ESRD on hemodialysis Saturday, Saturday, Saturday, left upper extremity steal syndrome, paroxysmal atrial fibrillation on Eliquis, diabetes, diabetic neuropathy, hyperlipidemia, hypertension, PAD status post
bilateral BKA, chronic HFpEF, CAD, CVA)
Past Surgical History: Reports None
Social History
Tobacco: Non-smoker
Alcohol: None
Drug: None
Family History
Family History: Not pertinent
Allergies / Home Medications
Allergies reflects when Allergies were last updated in [facility].
Home Medications with original date entered in [facility]
Allergy/Medication List:
Allergies
Allergy/AdvReac Type Severity Reaction Status Date / Time
animal dander Allergy Congestion, Verified 03/24/25 13:46
sneezing,
coughing
house dust Allergy Congestion, Verified 03/24/25 13:46
sneezing,
coughing
ibuprofen Allergy 'bleeding Verified 03/24/25 13:46
eyes'
levofloxacin Allergy Unknown Verified 03/24/25 13:46
metoclopramide HCl (From Allergy Restlessnes Verified 03/24/25 13:46
Reglan) s
nitrofurantoin Allergy Unknown Verified 03/24/25 13:46
oxycodone Allergy Severe Verified 03/24/25 13:46
hiccups;
Constipation
pollen extracts Allergy Sneezing; Verified 03/24/25 13:46
asthma
exacerbation
Sulfa (Sulfonamide Allergy Unknown Verified 03/24/25 13:46
Antibiotics)
sulfamethoxazole (From Allergy Hives Verified 03/24/25 13:46
Bactrim)
trimethoprim (From Bactrim) Allergy Hives Verified 03/24/25 13:46
vancomycin Allergy Hives Verified 03/24/25 13:46
Home Medications
sertraline 50 mg tablet 50 mg PO DAILY 05/22/19
insulin aspart U-100 100 unit/mL (3 mL) subcutaneous pen (Novolog FlexPen U-100 Insulin aspart) 2 sliding scale dose SC AC Diabetes 10/23/19
gabapentin 100 mg capsule 100 mg PO BID Pain 04/02/23
atorvastatin 40 mg tablet 40 mg PO HS High Cholesterol 04/16/23
docusate sodium 100 mg capsule (Colace) 100 mg PO QPM Constipation 04/17/23
sennosides 8.6 mg capsule (senna) 8.6 mg PO DAILY Constipation 04/17/23
amiodarone 200 mg tablet (Pacerone) 200 mg PO DAILY Arrhythmia 05/24/23
cholecalciferol (vitamin D3) 25 mcg (1,000 unit) capsule (Vitamin D3) 25 mcg PO MOWEFR 09/09/23
apixaban 5 mg tablet (Eliquis) 5 mg PO BID 10/07/23
lactobacillus combination no.4 3 billion cell capsule (Probiotic) 3,000 mmu cells PO DAILY 10/07/23
polyethylene glycol 3350 17 gram oral powder packet (HealthyLax) 17 g PO DAILY Constipation 10/07/23
tamsulosin 0.4 mg capsule 0.4 mg PO DAILY 10/07/23
cetirizine 10 mg tablet (24Hour Allergy) 10 mg PO DAILY #30 tabs 11/08/23
amoxicillin 500 mg-potassium clavulanate 125 mg tablet (Augmentin) 1 tab PO BID 5 days #10 tabs 03/24/25
Review of Systems
-
History Source: Patient
A 12 point ROS was completed and negative except as noted: Yes
Constitutional: Reports No Symptoms
EENT: Reports No Symptoms
Respiratory: Reports No Symptoms
Cardiac: Reports No Symptoms
Abdomen/GI: Reports No Symptoms
: Reports See HPI
Musculoskeletal: Reports No Symptoms
Skin: Reports No Symptoms
Neurological: Reports No Symptoms
Endocrine: Reports No Symptoms
Hematologic/Lymphatic: Reports No Symptoms
Psych: Reports No Symptoms
Physical Exam
Vital Signs
Vital Signs
Temp Pulse Resp BP Pulse Ox
97.8 F 58 20 167/71 93
06/20/25 13:11 06/20/25 18:45 06/20/25 15:34 06/20/25 18:00 06/20/25 18:45
Physical Exam
General: Well Developed, Well Nourished and No Apparent Distress
HEENT: NormoCephalic, Moist mucous membranes and Atraumatic
Respiratory: Clear
Cardiac: S1/S2 and Regular Rhythm; No Murmur or Rub
GI: Soft, Non Tender, Non Distended and Normal Bowel Sounds; No Organomegaly
Rectal: Deferred by Provider
Musculoskeletal: No Clubbing, No Cyanosis and No Edema
Skin: No Rash
Neuro: Nonfocal/grossly intact
Laboratory Results
-
06/20/25 16:41
06/20/25 16:41
Laboratory Results
APTT Cancelled 06/20/25 15:50
Total Bilirubin 0.8 mg/dl (0.2-1.3) 06/20/25 16:41
AST 12 U/L (14-36) L 06/20/25 16:41
ALT 11 U/L (0-35) 06/20/25 16:41
Alkaline Phosphatase 99 U/L (38-126) 06/20/25 16:41
Data Reviewed
-
Lab Data: Labs Reviewed by me
Old Records: Reviewed
Impression/Plan
-
IMPRESSION:
PLAN:
# Urinary tract infection
- Urinalysis suggestive of infection
-CT abdomen pelvis shows trace right pleural effusion, questionable cystitis,
- Urine culture
- Ceftriaxone
# Right sided back pain
- Seems to be musculoskeletal possibly spinal stenosis or herniated disk, pyelonephritis less likely given pain is up to the level of the breast
- Given Dilaudid in ER
- Continue Tylenol
- Does have some pleuritic features however she is compliant with Eliquis so doubt PE
-EKG unremarkable apart from old RBBB
ESRD on hemodialysis Saturday, Saturday, Saturday
- Nephrology consulted for routine dialysis tomorrow
History of left upper extremity steal syndrome
Paroxysmal atrial fibrillation
- Continue Eliquis
- Continue amiodarone
Type 2 diabetes
Chronic anemia
- Hemoglobin stable at 11.3
Diabetic neuropathy
- Continue gabapentin
Hyperlipidemia
- Continue statin
Essential hypertension
PAD status post bilateral BKA
Chronic HFpEF
Right bundle branch block
CAD
History of CVA
Anxiety/depression
- Continue sertraline
DNR/DNI
DVT prophylaxis�Eliquis
Renal diet
--- NOTE | 2025-06-20 22:00 | PTCARENOTE ---
Pt arrived from ED via stretcher, transferred to bed. vss. Pt denies pain, no acute distress noted. Report given to Yamini OWENS.
[2025-06-20 22:19] VITALS: BMI 23.7
[2025-06-20 23:15] VITALS: BP 161/68
[2025-06-20 23:42] VITALS: BMI 24.3
[2025-06-20] MEDS: ELIQUIS 5 MG PO (23:56)
[2025-06-20] MEDS: NEURONTIN 100 MG PO (23:56)
[2025-06-21] MEDS: TYLENOL 650 MG PO ×4 (00:10→21:10)
[2025-06-21 06:00] VITALS: BMI 23.9
[2025-06-21 06:48] LABS: Glucose - Point of Care 102 mg/dl (70-99)
[2025-06-21 07:50] VITALS: BP 167/69
[2025-06-21] MEDS: NOVOLOG FLEXPEN-LOW RESISTANCE SC ×2 (08:02→17:27)
[2025-06-21] MEDS: NEURONTIN 100 MG PO ×3 (08:02→21:10)
[2025-06-21] MEDS: VISBIOME 1 CAP PO (08:03)
[2025-06-21] MEDS: CRESTOR 40 MG PO (08:03)
[2025-06-21] MEDS: MIRALAX 17 GRAMS PO (08:03)
[2025-06-21] MEDS: ZOLOFT 50 MG PO (08:03)
[2025-06-21] MEDS: ELIQUIS 5 MG PO ×2 (08:03→19:50)
[2025-06-21] MEDS: FLOMAX 0.4 MG PO (08:03)
[2025-06-21] MEDS: PACERONE 200 MG PO (08:04)
[2025-06-21] MEDS: VITAMIN D3 (cholecalciferol) 25 MCG PO (08:06)
[2025-06-21 08:08] LABS: Hematocrit 35.0 % (37.0-47.0); Hemoglobin 11.2 g/dL (12.0-16.0); Mean Corp Hgb Conc. 32.0 g/dL (33.0-37.0); Mean Corpuscular Volume 98.9 fL (81.0-99.0); Nucleated Red Blood Cells % 0 %; Platelet Count 152 10^3/uL (130-400); Red Cell Dist. Width 13.8 % (11.5-14.5)
--- NOTE | 2025-06-21 08:41 | W.CON.NEPH ---
Consultation
-
Date/Time Consultation Requested: 06/21/2025 7 AM
Date/Time Consultation Performed: 06/21/2025 8 AM
Requesting Provider: Dr. Ford
Performing Provider: Dr. Lopez
Reason for Consultation: ESRD
Medical History
-
Chief Complaint: Back pain
History of Present Illness:
This is a 74-year-old female who is known to us for end-stage renal disease on hemodialysis Fridays at [facility]. She dialyzes via a CVC as she has had failed AV fistulas in the past. She has had no issues with
dialysis recently. She has diabetes mellitus type 2 which is stable on insulin therapy, paroxysmal atrial fibrillation rate controlled with amiodarone therapy. She is chronically anticoagulated with Eliquis. She states that in the last week she
has developed right sided mid back pain which has progressively moved downward and now also radiates around to under her right breast. It is worse with movement as well as with inspiration. Because of this she had come to the emergency room for
evaluation. She did note some urinary symptoms with dysuria and was also found to have a UTI we are asked to assist with management of her dialysis.
Past Medical History
1. Left upper extremity brachiocephalic AV fistula with basilic
vein transposition March 2023.
2. ESRD secondary to diabetic nephropathy with initiation of
dialysis March 2023.
3. Diabetes with neuropathy.
4. Paroxysmal AFib.
5. History of coronary artery disease with stenting.
6. Hypertension.
7. Diastolic heart failure.
8. Moderate pulmonary hypertension with associated moderate MR.
9. History of stroke 2019.
10. Secondary hyperparathyroidism.
11. Bilateral BKA.
12. Iron deficiency.
13. History of urinary retention.
Social History
Tobacco: Non-Smoker
Alcohol: None
Family History
Family History: Not Pertinent
Allergies / Home Medications
Allergy/AdvReac Type Severity Reaction Status Date / Time
animal dander Allergy Congestion, Verified 03/24/25 13:46
sneezing,
coughing
house dust Allergy Congestion, Verified 03/24/25 13:46
sneezing,
coughing
ibuprofen Allergy 'bleeding Verified 03/24/25 13:46
eyes'
levofloxacin Allergy Unknown Verified 03/24/25 13:46
metoclopramide HCl (From Allergy Restlessnes Verified 03/24/25 13:46
Reglan) s
nitrofurantoin Allergy Unknown Verified 03/24/25 13:46
oxycodone Allergy Severe Verified 03/24/25 13:46
hiccups;
Constipation
pollen extracts Allergy Sneezing; Verified 03/24/25 13:46
asthma
exacerbation
Sulfa (Sulfonamide Allergy Unknown Verified 03/24/25 13:46
Antibiotics)
sulfamethoxazole (From Allergy Hives Verified 03/24/25 13:46
Bactrim)
trimethoprim (From Bactrim) Allergy Hives Verified 03/24/25 13:46
vancomycin Allergy Hives Verified 03/24/25 13:46
�Medication �Instructions �Recorded �Confirmed �Type
sertraline 50 mg tablet 50 mg PO DAILY 05/22/19 06/20/25 Rx
insulin aspart U-100 100 unit/mL 2 sliding scale dose SC AC Diabetes 10/23/19 06/20/25 History
(3 mL) subcutaneous pen (Novolog
FlexPen U-100 Insulin aspart)
gabapentin 100 mg capsule 100 mg PO BID Pain 04/02/23 06/20/25 History
amiodarone 200 mg tablet (Pacerone) 200 mg PO DAILY Arrhythmia 05/24/23 06/20/25 History
cholecalciferol (vitamin D3) 25 25 mcg PO MOWEFR Supplement 09/09/23 06/20/25 History
mcg (1,000 unit) capsule (Vitamin
D3)
apixaban 5 mg tablet (Eliquis) 5 mg PO BID Blood Clot 10/07/23 06/20/25 History
Prevention/Tx
lactobacillus combination no.4 3 3,000 mmu cells PO DAILY 10/07/23 06/20/25 History
billion cell capsule (Probiotic) Gastrointestinal Issue
polyethylene glycol 3350 17 gram 17 g PO DAILY Constipation 10/07/23 06/20/25 History
oral powder packet (HealthyLax)
tamsulosin 0.4 mg capsule 0.4 mg PO DAILY Urinary Issue 10/07/23 06/20/25 History
rosuvastatin 40 mg tablet 40 mg PO DAILY High Cholesterol 06/20/25 06/20/25 History
Review of Systems
-
Back pain as above
All other systems: Negative unless noted
Physical Exam
Vital Signs
Vital Signs
Temp Pulse Resp BP Pulse Ox
98.3 F 55 16 167/69 98
06/21/25 07:50 06/21/25 08:04 06/21/25 07:50 06/21/25 08:04 06/21/25 07:50
Lab Results
WBC 6.5 10^3/uL (4.8-10.8) 06/21/25 07:29
RBC 3.54 10^6/uL (4.20-5.40) L 06/21/25 07:29
Hgb 11.2 g/dL (12.0-16.0) L 06/21/25 07:29
Hct 35.0 % (37.0-47.0) L 06/21/25 07:29
Plt Count 152 10^3/uL (130-400) 06/21/25 07:29
eGFR 9.35 06/20/25 16:41
Laboratory Tests
06/21/25
07:29
Potassium 4.2
Creatinine 5.2 H*
CT chest, abdomen and pelvis with IV contrast 06/20/2025
IMPRESSION:
1. Trace right pleural effusion. No pulmonary embolism.
2. Questionable cystitis.
3. Otherwise no significant acute abnormality identified in the chest, abdomen or pelvis, as described above.
Physical Exam
Patient is awake alert oriented and in no distress. Mood and affect were pleasant, insight and judgment were good. Pupils are equal round and reactive to light, extraocular movements are intact, sclera were anicteric. Hearing was normal, ears and
nose are intact. Oropharynx was clear. Neck was supple with trachea midline and no thyromegaly. Heart was regular rate and rhythm without rubs. Lower extremities without edema. Lungs were clear to auscultation bilaterally and with normal
excursion. Abdomen was soft, nontender, with normal active bowel sounds, and no hepatosplenomegaly. Skin was without rash and with normal turgor.
Data Reviewed
-
CT Scan: Report Reviewed by me
Medical Tests (Nuc Med, Echo etc): Image Personally Visualized and interpreted (EKG 06/20/2025 by my read normal sinus rhythm right bundle branch block)
Labs: Labs Reviewed by me
Old Records: Reviewed
Assessment/Plan
-
Assessment
ESRD
Diabetes mellitus type 2
Paroxysmal atrial fibrillation
Heart failure preserved ejection fraction
Atherosclerotic cardiovascular disease, PAD, CVA history
Bilateral BKA
Right-sided back pain
UTI
Plan
Antibiotics per primary team will continue. No dose adjustment for ceftriaxone required
Rosuvastatin dosing should be restricted to 10 mg with dialysis
Dialysis today
Pain control, back pain likely musculoskeletal
[2025-06-21 08:43] LABS: ALT (SGPT) 10 U/L (0-35); AST (SGOT) 12 U/L (14-36); Albumin 3.7 g/dl (3.5-5.0); Alkaline Phosphatase 93 U/L (38-126); Blood Urea Nitrogen 30 mg/dl (7-17); Calcium 8.4 mg/dl (8.4-10.2); Carbon Dioxide 28 mmol/L (22-30); Chloride 100 mmol/L (98-107); Estimated Creatinine Clearance 10 ml/min; Glucose 108 mg/dl (70-99); Potassium 4.2 mmol/L (3.5-5.1); Sodium 137 mmol/L (135-145); Total Protein 6.1 g/dl (6.3-8.2); eGFR 8.28
[2025-06-21 09:30] LABS: Glycohemoglobin (HgbA1c) 6.6 % (4.0-5.6)
--- NOTE | 2025-06-21 11:12 | W.PN.HOSP.TC ---
Today's Communication/Plan
-
Empiric antibiotics pending urine cultures.
T�L-spine x-ray.
Increase gabapentin
PT/OT evaluation with discharge planning
Assessment / Plan
Assessment / Plan
Impression
Presenting with persistent right back/flank pain
UTI suspected
Other conditions:
End-stage renal disease due to diabetic nephropathy on hemodialysis Saturday
Failed left upper extremity AV fistula, status post left upper extremity steal syndrome
Left chest HD catheter in place.
Type 2 diabetes with neuropathy.
Paroxysmal atrial fibrillation
Anticoagulation with Eliquis.
Essential hypertension
CHF preserved EF
History of CVA 2020
Bilateral BKA
Chronic anemia with iron deficiency
History of urinary retention
History of UTI
Plan
Persistent over a week right back pain, positional, worsening with deep inspirations and radiating under right breast.
Exam with no rash (patient with prior history of shingles on the right)
CT scan with trace right pleural effusion, no pulmonary embolism. No parenchymal abnormalities.
Not in distress.
? Neuropathic pain, monitor for rash, versus referred pain from T/L-spine.
Check x-ray of T/L-spine with concern for vertebral fracture
Increase gabapentin to 100 g 3 times daily
Continue Tylenol
Avoid narcotics
PT/OT evaluation
Suspected UTI.
While oliguric, complains of occasional dysuria.
Exam with very mild right flank tenderness.
CT noted for possible cystitis.
Prior history of UTI with Klebsiella
Abnormal urinalysis.
Empiric antibiotics ceftriaxone pending urine cultures
Continue Flomax
End-stage renal disease.
Nephrology evaluation baseline continue HD.
Left chest HD catheter in place.
Paroxysmal atrial fibrillation.
Rate control with amiodarone
Anticoagulation: Eliquis
Type 2 diabetes with diabetic nephropathy/neuropathy.
Hemoglobin A1c 6.6.
Euglycemic
Serial Accu-Cheks, corrective insulin
Depression/anxiety
Continue sertraline
Anticipated Discharge: 24 - 48 hours
Subjective/Interval History
-
Date of Service: June 21, 2025
Objective Data
-
Labs:
Laboratory Results
06/21/25
07:29
WBC 6.5
Hgb 11.2 L
Hct 35.0 L
Plt Count 152
Sodium 137
Potassium 4.2
Chloride 100
Carbon Dioxide 28
BUN 30 H
Creatinine 5.2 H*
Glucose 108 H
Calcium 8.4
Total Bilirubin 0.7
AST 12 L
ALT 10
Alkaline Phosphatase 93
Vital Signs:
Vital Signs
Temp Pulse Resp BP Pulse Ox
98.3 F 55 16 167/69 98
06/21/25 07:50 06/21/25 08:04 06/21/25 07:50 06/21/25 08:04 06/21/25 08:30
I&O
06/20/25 06/21/25 06/22/25
06:59 06:59 06:59
Intake Total 480 / 480
Balance 480 / 480
Physical Exam
-
General: Well Developed and No Apparent Distress
HEENT: Normocephalic, Atraumatic and Moist Mucous Membranes
Respiratory: Clear to Auscultation
Cardiac: Regular Rhythm and S1/S2; Negative Murmur, Rub or Gallop
GI: Soft, Nontender, Nondistended and Normal Bowel Sounds; Negative Organomegaly
Rectal: Deferred by Provider
Musculoskeletal: No Clubbing, No Cyanosis, No Edema and Other (Bilateral BKA)
Skin: Negative Rash
Neuro: Awake, Alert, Oriented, AO x 3 and Nonfocal/Grossly Intact
[2025-06-21 11:28] LABS: Glucose - Point of Care 174 mg/dl (70-99)
[2025-06-21] MEDS: NOVOLOG FLEXPEN-LOW RESISTANCE 1 UNITS SC (11:48)
[2025-06-21 12:50] LABS: Glucose - Point of Care 188 mg/dl (70-99)
--- NOTE | 2025-06-21 13:02 | PTCARENOTE ---
Patient c/o of feeling shaky/ no able to control own movements. VSS. BS 188. made aware. Patient to get HD at 1330. Call storey within reach.
--- NOTE | 2025-06-21 13:29 | CM ---
Reviewed the chart notes and spoke with the patient at the bedside. The patient resides with her spouse in a two story home with a ramp to enter. Patient resides on first level. The patient has a wheelchair and bilateral lower extremity
prosthetics. The patient receives HD at [facility]. The patient has had [facility] in the past and been to [facility]. The patient confirmed her pharmacy of choice is [facility]. CM continues to be available to
patient/family and is monitoring medical plan for needs at discharge.
Plan: Discharge plans will depend on the patient's progress.
--- NOTE | 2025-06-21 15:18 | W.PN.NEPH.HD ---
Assessment
-
Seen on HD. no complaints. VSS< access ok
Progress Note - Hemodialysis
-
Date of Service: June 21, 2025
Duration: 30 minutes and 3 hours
Potassium Bath: 2
Calcium Bath: 2.5
Opti-Dialyzer: 160
Ultrafiltration: Other (2kg)
Blood Flow: 350
Dialysate Flow: 600
Heparin: no
EPO: 0
[2025-06-21 15:30] VITALS: BP 158/71
[2025-06-21 17:19] LABS: Glucose - Point of Care 97 mg/dl (70-99)
[2025-06-21] MEDS: HEPARIN 4000 UNITS INTRACATH (17:58)
[2025-06-21] MEDS: STERILE WATER FOR INJECTION 10 ML IV (19:51)
[2025-06-21] MEDS: ROCEPHIN 1000 MG IV (19:51)
[2025-06-21 20:37] LABS: Glucose - Point of Care 121 mg/dl (70-99)
[2025-06-21 23:29] VITALS: BP 143/60
[2025-06-22] MEDS: TYLENOL 650 MG PO ×3 (02:56→22:41)
[2025-06-22 06:00] VITALS: BMI 23.8
[2025-06-22 07:00] VITALS: BP 161/77
[2025-06-22 07:17] LABS: Glucose - Point of Care 164 mg/dl (70-99)
[2025-06-22] MEDS: NOVOLOG FLEXPEN-LOW RESISTANCE 1 UNITS SC ×2 (07:57→12:16)
[2025-06-22] MEDS: FLOMAX 0.4 MG PO (07:57)
[2025-06-22] MEDS: ELIQUIS 5 MG PO ×2 (07:58→19:50)
[2025-06-22] MEDS: CRESTOR 10 MG PO (07:58)
[2025-06-22] MEDS: NEURONTIN 100 MG PO ×3 (07:58→22:42)
[2025-06-22] MEDS: ZOLOFT 50 MG PO (07:58)
[2025-06-22] MEDS: VISBIOME 1 CAP PO (07:58)
[2025-06-22] MEDS: MIRALAX PO (07:59)
[2025-06-22] MEDS: PACERONE 200 MG PO (08:01)
[2025-06-22 10:37] VITALS: BP 152/74; PULSE 54; O2SAT 100
[2025-06-22 10:42] VITALS: BP 152/74; PULSE 57; O2SAT 100
[2025-06-22 12:04] LABS: Glucose - Point of Care 179 mg/dl (70-99)
[2025-06-22 12:05] VITALS: BP 140/111
--- NOTE | 2025-06-22 12:27 | W.PN.NEPH.PH ---
Today's Communication / Plan
-
HD tomorrow
Assessment/Plan
-
Assessment
ESRD
Diabetes mellitus type 2
Paroxysmal atrial fibrillation
Heart failure preserved ejection fraction
Atherosclerotic cardiovascular disease, PAD, CVA history
Bilateral BKA
Right-sided back pain
UTI
Plan
Antibiotics per primary team will continue. No dose adjustment for ceftriaxone required
HD tomorrow
likely home with PT
-
-
Date of Service: June 22, 2025
CC / HPI / ROS
-
Chief Complaint:
ESRD
History of Present Illness:
tolerated HD yesterday
BP stable
pain controlled
abx for UTI
Review of Systems:
no CP/SOB
Labs
-
Labs:
WBC 6.5 10^3/uL (4.8-10.8) 06/21/25 07:
RBC 3.54 10^6/uL (4.20-5.40) L 06/21/25 07:
Hgb 11.2 g/dL (12.0-16.0) L 06/21/25 07:29
Hct 35.0 % (37.0-47.0) L 06/21/25 07:
Plt Count 152 10^3/uL (130-400) 06/21/25 07:29
Sodium 137 mmol/L (135-145) 06/21/25 07:
Potassium 4.2 mmol/L (3.5-5.1) 06/21/25 07:
Chloride 100 mmol/L (98-107) 06/21/25 07:
Carbon Dioxide 28 mmol/L (22-30) 06/21/25 07:
BUN 30 mg/dl (7-17) H 06/21/25 07:
Creatinine 5.2 mg/dL (0.6-1.0) H* 06/21/25 07:29
eGFR 8.28 06/21/25 07:29
Glucose 108 mg/dl (70-99) H 06/21/25 07:29
Calcium 8.4 mg/dl (8.4-10.2) 06/21/25 07:
Albumin 3.7 g/dl (3.5-5.0) 06/21/25 07:
Physical Exam
-
Vital Signs:
Vital Signs
Temp Pulse Resp BP Pulse Ox
98.7 F 60 16 140/111 100
06/22/25 07:00 06/22/25 12:05 06/22/25 07:00 06/22/25 12:05 06/22/25 11:00
Cardiovascular:: Regular rate and rhythm
Respiratory:: Bilateral: CTA
Lung Excursion:: Normal
Abdomen:: Nontender and Soft
Bowel Sounds:: Normal
Extremity Edema:: None: Bilateral:
--- NOTE | 2025-06-22 14:39 | WOUNDNOTE ---
R BUTTOCKS-BLANCHABLE RED
--- NOTE | 2025-06-22 14:40 | WOUNDNOTE ---
ANDREA RN NOTE: Nurse asked this commercial lines underwriter to assess R buttock for suspected DTI. Patient received sitting in chair, able to stand with one assist using walker. R buttock with blanchable red torie, no open wound, not a pressure ulcer. Sacrum and gluteal
cleft intact. Foams already applied by nurse, gave patient air chair cushion and placed under patient. Nurse added air overlay to Accumax bed. No other assistance needed at this time.
[2025-06-22] MEDS: ULTRAM 25 MG PO (15:23)
[2025-06-22 15:27] VITALS: BP 139/66
--- NOTE | 2025-06-22 15:43 | CM ---
Reviewed the chart notes and spoke with the patient at the bedside. Patient feels home with VN is best. Patient selected VN. Referral sent via [facility]. CM continues to be available to patient/family and is monitoring medical plan for needs
at discharge.
Plan: Discharge to home with VN services.
[2025-06-22 17:01] LABS: Glucose - Point of Care 205 mg/dl (70-99)
--- NOTE | 2025-06-22 17:06 | W.PN.HOSP.TC ---
Today's Communication/Plan
-
Right back/chest pain secondary to multiple rib fractures
Continue PT
Discussed with case management for SNF placement, patient agreed
Continue Tylenol, Neurontin, add low-dose of Ultram
Continue antibiotics pending final cultures
HD as per schedule
Assessment / Plan
Assessment / Plan
Impression
Presenting with persistent right back/flank pain
Right-sided rib fracture secondary to osteoporosis
UTI suspected
Other conditions:
End-stage renal disease due to diabetic nephropathy on hemodialysis Saturday
Failed left upper extremity AV fistula, status post left upper extremity steal syndrome
Left chest HD catheter in place.
Type 2 diabetes with neuropathy.
Paroxysmal atrial fibrillation
Anticoagulation with Eliquis.
Essential hypertension
CHF preserved EF
History of CVA 2020
Bilateral BKA
Chronic anemia with iron deficiency
History of urinary retention
History of UTI
Plan
Persistent over a week right back pain, positional, worsening with deep inspirations and radiating under right breast.
Exam with no rash (patient with prior history of shingles on the right
CT scan with trace right pleural effusion, no pulmonary embolism. No parenchymal abnormalities.
X-ray with Recent fractures of posterior right fourth through seventh ribs. Negative for thoracic or lumbar spine compression fracture
PT/OT evaluation
UTI, not complicated. No evidence of systemic symptoms. Sepsis ruled out.
While oliguric, complains of occasional dysuria.
Exam with very mild right flank tenderness.
CT noted for possible cystitis.
Prior history of UTI with Klebsiella
Empiric antibiotics ceftriaxone pending urine cultures
Continue Flomax
End-stage renal disease.
Nephrology evaluation baseline continue HD.
Left chest HD catheter in place.
Paroxysmal atrial fibrillation.
Rate control with amiodarone
Anticoagulation: Eliquis
Type 2 diabetes with diabetic nephropathy/neuropathy.
Hemoglobin A1c 6.6.
Euglycemic
Serial Accu-Cheks, corrective insulin
Depression/anxiety
Continue sertraline
Anticipated Discharge: 24 - 48 hours
Subjective/Interval History
-
Date of Service: June 22, 2025
Objective Data
-
Vital Signs:
Vital Signs
Temp Pulse Resp BP Pulse Ox
98.1 F 56 16 139/66 100
06/22/25 15:27 06/22/25 15:27 06/22/25 15:27 06/22/25 15:27 06/22/25 15:27
I&O
06/21/25 06/22/25 06/23/25
06:59 06:59 06:59
Intake Total 480 / 480 360 / 360
Balance 480 / 480 360 / 360
Physical Exam
-
General: Well Developed and No Apparent Distress
HEENT: Normocephalic, Atraumatic and Moist Mucous Membranes
Respiratory: Clear to Auscultation
Cardiac: Regular Rhythm and S1/S2; Negative Murmur, Rub or Gallop
GI: Soft, Nontender, Nondistended and Normal Bowel Sounds; Negative Organomegaly
Rectal: Deferred by Provider
Musculoskeletal: No Clubbing, No Cyanosis, No Edema and Other (Bilateral BKA)
Skin: Negative Rash
Neuro: Awake, Alert, Oriented, AO x 3 and Nonfocal/Grossly Intact
[2025-06-22] MEDS: NOVOLOG FLEXPEN-LOW RESISTANCE 2 UNITS SC (17:28)
[2025-06-22] MEDS: ROCEPHIN 1000 MG IV (19:50)
[2025-06-22] MEDS: STERILE WATER FOR INJECTION 10 ML IV (19:50)
[2025-06-22 21:11] LABS: Glucose - Point of Care 194 mg/dl (70-99)
[2025-06-22 23:42] VITALS: BP 167/72
--- NOTE | 2025-06-23 00:30 | PTCARENOTE ---
Patient has right sided back pain c/o 7/10 pain. already medicated with Tylenol. Patient not due to get tramadol as its ordered for q12h . bp 167/66, HR- 56. Notified BIJAN Vargas.
[2025-06-23] MEDS: ULTRAM 25 MG PO (03:48)
[2025-06-23 05:24] VITALS: BMI 25.6
[2025-06-23] MEDS: ELIQUIS 5 MG PO ×2 (07:32→21:11)
[2025-06-23] MEDS: ZOLOFT 50 MG PO (07:32)
[2025-06-23] MEDS: CRESTOR 10 MG PO (07:32)
[2025-06-23] MEDS: VISBIOME 1 CAP PO (07:32)
[2025-06-23] MEDS: FLOMAX 0.4 MG PO (07:32)
[2025-06-23] MEDS: NEURONTIN 100 MG PO ×3 (07:32→21:25)
[2025-06-23] MEDS: PACERONE 200 MG PO (07:33)
[2025-06-23] MEDS: VITAMIN D3 (cholecalciferol) 25 MCG PO (07:34)
[2025-06-23] MEDS: MIRALAX 17 GRAMS PO (07:34)
[2025-06-23 07:44] LABS: Glucose - Point of Care 173 mg/dl (70-99)
[2025-06-23] MEDS: NOVOLOG FLEXPEN-LOW RESISTANCE 1 UNITS SC (07:44)
[2025-06-23 07:48] VITALS: BP 163/68
--- NOTE | 2025-06-23 10:17 | CM ---
Addendum entered by Diane Rizo RN 06/23/25 14:14:
IMM reviewed with patient.
Original Note:
Reviewed the chart notes. HD today. CM continues to be available to patient/family and is monitoring medical plan for needs at discharge.
Plan: Discharge to home with VN services when medically stable.
--- NOTE | 2025-06-23 11:16 | VNURNOTE ---
Home Health Liaison met with patient at bedside to discuss [facility] nurse/therapy, visits, schedule and homebound status. Patient is agreeable and understands that visits at home will be 2-3 x per week to assess and teach medical management. Noted
that she has HD MWF. Patient is aware that [facility] will contact them for start of care in 1-2 days after discharge from .
[facility] referral accepted in [facility].
[2025-06-23] MEDS: TYLENOL 650 MG PO (11:24)
[2025-06-23 11:29] LABS: Glucose - Point of Care 213 mg/dl (70-99)
[2025-06-23] MEDS: NOVOLOG FLEXPEN-LOW RESISTANCE 2 UNITS SC (11:29)
--- NOTE | 2025-06-23 12:40 | W.PN.HOSP.TC ---
Addendum entered and electronically signed by Juan Diego Cutler MD 06/24/25 15:46:
Today's blood pressure was in 170s systolic and prior readings also shown readings more than the goal. On any antihypertensives. Initiated on Norvasc and to follow-up with manager document control in the dialysis center.
Original Note:
Today's Communication/Plan
-
DC
Assessment / Plan
Assessment / Plan
Impression
Presenting with persistent right back/flank pain
Non traumatic Right-sided rib fracture ? secondary to osteoporosis.
UTI with Klebsiella pneumoniae
Other conditions:
End-stage renal disease due to diabetic nephropathy on hemodialysis Saturday
Failed left upper extremity AV fistula, status post left upper extremity steal syndrome
Left chest HD catheter in place.
Type 2 diabetes with neuropathy.
Paroxysmal atrial fibrillation
Anticoagulation with Eliquis.
Essential hypertension
CHF preserved EF
History of CVA 2020
Bilateral BKA
Chronic anemia with iron deficiency
History of urinary retention
History of UTI
Plan
Persistent over a week right back pain, positional, worsening with deep inspirations and radiating under right breast.
Exam with no rash (patient with prior history of shingles on the right
CT scan with trace right pleural effusion, no pulmonary embolism. No parenchymal abnormalities.
X-ray with Recent fractures of posterior right fourth through seventh ribs. Negative for thoracic or lumbar spine compression fracture
DW Nephro - her PTH are well under control with Vit D tx. Suspect this is possibly sec to use of UE for all transfers and ADLs due to BL BKA and cant rule out OP. OP Bone density testing.
Not SOB n pain seems under control
PT/OT evaluation prior to DC
UTI, not complicated. No evidence of systemic symptoms. Sepsis ruled out.
While oliguric, complains of occasional dysuria.
Exam with very mild right flank tenderness.
CT noted for possible cystitis.
Prior history of UTI with Klebsiella
Empiric antibiotics ceftriaxone -switch to oral Augmentin
Continue Flomax
End-stage renal disease.
Nephrology evaluation baseline continue HD.
Left chest HD catheter in place.
Paroxysmal atrial fibrillation.
Rate control with amiodarone
Anticoagulation: Eliquis
Type 2 diabetes with diabetic nephropathy/neuropathy.
Hemoglobin A1c 6.6.
Euglycemic
Serial Accu-Cheks, corrective insulin
Depression/anxiety
Continue sertraline
DC home after PT /OT eval
Anticipated Discharge: Today
Subjective/Interval History
-
Date of Service: June 23, 2025
Right posterior chest pain persists but tolerable with pain meds.
No hx of trauma to chest . She uses her UE for her ADLs and transfers as she has BL BKA . No prior hx of fractures and alina osteoporosis.
No SOB or cough.
Today without dysuria or frequency of urine.
Toleraing diet.
Objective Data
-
Vital Signs:
Vital Signs
Temp Pulse Resp BP Pulse Ox
97.6 F 61 16 163/68 99
06/23/25 07:48 06/23/25 07:48 06/23/25 07:48 06/23/25 07:48 06/23/25 10:20
I&O
06/22/25 06/23/25 06/24/25
06:59 06:59 06:59
Intake Total 360 / 360 720 / 720
Balance 360 / 360 720 / 720
Physical Exam
-
General: Comfortable
Respiratory: Clear to Auscultation, Non Labored Respirations and Other (tenderness in R posterior thorax mid scapular line inferiorly ); Negative Accessory Resp Muscle Use
Cardiac: Regular Rhythm and S1/S2
Neuro: AO x 3
Psych: Calm; Negative Confused
Data Reviewed
-
Labs: Labs Reviewed by me
[2025-06-23 12:53] LABS: Hematocrit 30.7 % (37.0-47.0); Hemoglobin 10.3 g/dL (12.0-16.0)
[2025-06-23 13:13] LABS: Carbon Dioxide 26 mmol/L (22-30); Chloride 100 mmol/L (98-107); Potassium 4.0 mmol/L (3.5-5.1); Sodium 134 mmol/L (135-145)
[2025-06-23 15:22] VITALS: BP 151/72
--- NOTE | 2025-06-23 15:47 | W.PN.NEPH.HD ---
Assessment
-
[facility] HD / UF goal 2.5 L
Progress Note - Hemodialysis
-
Date of Service: June 23, 2025
Duration: 30 minutes and 3 hours
Potassium Bath: 2
Calcium Bath: 2.5
Opti-Dialyzer: 160
Ultrafiltration: Other (2kg)
Blood Flow: 350
Dialysate Flow: 600
Heparin: no
EPO: 0
[2025-06-23] MEDS: HEPARIN 4000 UNITS INTRACATH (16:02)
[2025-06-23 16:59] LABS: Glucose - Point of Care 114 mg/dl (70-99)
[2025-06-23] MEDS: NOVOLOG FLEXPEN-LOW RESISTANCE SC (16:59)
--- NOTE | 2025-06-23 17:00 | PTCARENOTE ---
MD requesting PT re-eval patient prior to DC home, this RN called PT, PT unavailable to round on patient until AM. MD stated to hold on DC pending PT eval. Patient made aware and in agreement.
[2025-06-23] MEDS: ROCEPHIN 1000 MG IV (21:11)
[2025-06-23] MEDS: STERILE WATER FOR INJECTION 10 ML IV (21:11)
[2025-06-23 21:50] LABS: Glucose - Point of Care 182 mg/dl (70-99)
[2025-06-23 23:42] VITALS: BP 137/70
[2025-06-24] MEDS: ULTRAM 25 MG PO ×2 (04:03→08:44)
[2025-06-24 06:00] VITALS: BMI 24.8
[2025-06-24 07:16] LABS: Glucose - Point of Care 136 mg/dl (70-99)
[2025-06-24 07:33] VITALS: BP 172/73
[2025-06-24] MEDS: NOVOLOG FLEXPEN-LOW RESISTANCE SC ×2 (07:51→16:20)
[2025-06-24] MEDS: TYLENOL 650 MG PO (08:25)
[2025-06-24] MEDS: CRESTOR 10 MG PO (08:26)
[2025-06-24] MEDS: FLOMAX 0.4 MG PO (08:26)
[2025-06-24] MEDS: NEURONTIN 100 MG PO ×2 (08:26→15:33)
[2025-06-24] MEDS: PACERONE 200 MG PO (08:26)
[2025-06-24] MEDS: VISBIOME 1 CAP PO (08:26)
[2025-06-24] MEDS: ZOLOFT 50 MG PO (08:27)
[2025-06-24] MEDS: ELIQUIS 5 MG PO (08:27)
[2025-06-24] MEDS: MIRALAX 17 GRAMS PO (08:27)
[2025-06-24 10:08] VITALS: BP 176/86; BP 176/89; PULSE 66; PULSE 68; O2SAT 100
[2025-06-24 11:38] LABS: Glucose - Point of Care 209 mg/dl (70-99)
[2025-06-24] MEDS: NOVOLOG FLEXPEN-LOW RESISTANCE 2 UNITS SC (11:49)
--- NOTE | 2025-06-24 14:16 | W.PN.NEPH.PH ---
Today's Communication / Plan
-
Dialysis tomorrow
Assessment/Plan
-
Assessment
ESRD
Diabetes mellitus type 2
Paroxysmal atrial fibrillation
Heart failure preserved ejection fraction
Atherosclerotic cardiovascular disease, PAD, CVA history
Bilateral BKA
Right-sided back pain
UTI
Plan
Antibiotics per primary team will continue. No dose adjustment for ceftriaxone required
HD tomorrow
No acute need for dialysis today
See orders for details
-
-
Date of Service: June 24, 2025
CC / HPI / ROS
-
Chief Complaint:
ESRD
History of Present Illness:
tolerated HD yesterday
BP stable
pain controlled
abx for UTI
Review of Systems:
no CP/SOB
Labs
-
Labs:
WBC 6.5 10^3/uL (4.8-10.8) 06/21/25 07:29
RBC 3.54 10^6/uL (4.20-5.40) L 06/21/25 07:29
Hgb 10.3 g/dL (12.0-16.0) L 06/23/25 12:46
Hct 30.7 % (37.0-47.0) L 06/23/25 12:46
Plt Count 152 10^3/uL (130-400) 06/21/25 07:29
Sodium 134 mmol/L (135-145) L 06/23/25 12:46
Potassium 4.0 mmol/L (3.5-5.1) 06/23/25 12:46
Chloride 100 mmol/L (98-107) 06/23/25 12:46
Carbon Dioxide 26 mmol/L (22-30) 06/23/25 12:46
BUN 30 mg/dl (7-17) H 06/21/25 07:29
Creatinine 5.2 mg/dL (0.6-1.0) H* 06/21/25 07:29
eGFR 8.28 06/21/25 07:29
Glucose 108 mg/dl (70-99) H 06/21/25 07:29
Calcium 8.4 mg/dl (8.4-10.2) 06/21/25 07:
Albumin 3.7 g/dl (3.5-5.0) 06/21/25 07:29
Physical Exam
-
Vital Signs:
Vital Signs
Temp Pulse Resp BP Pulse Ox
98.4 F 62 18 172/73 97
06/24/25 07:33 06/24/25 07:33 06/24/25 07:33 06/24/25 07:33 06/24/25 07:33
Cardiovascular:: Regular rate and rhythm
Respiratory:: Bilateral: CTA
Lung Excursion:: Normal
Abdomen:: Nontender and Soft
Bowel Sounds:: Normal
Extremity Edema:: None: Bilateral:
--- NOTE | 2025-06-24 14:53 | W.DCSUMMARY ---
Discharge Summary
Discharge Data
Date of Admission: 06/20/25
Date of Discharge: 06/24/25
-
Pending Results: No
Hospital Course
Primary diagnosis:
Nontraumatic right-sided rib fracture
Urinary tract infection with Klebsiella pneumonia
Secondary diagnosis:
End-stage renal disease on hemodialysis
Type 2 diabetes mellitus
Paroxysmal atrial fibrillation on Eliquis
Essential hypertension
History of congestive heart failure with preserved EF
Hospital course:
Patient presented with right-sided back pain for a week and half which got progressively worse. She had initially CT of the chest/abdomen/pelvis which did not show any PE. There is a questionable cystitis but otherwise no acute abnormality was
identified. She had lumbar and thoracic spine x-ray which picked up evidence of recent fracture of posterior right 4th through 7th rib. No pneumothorax noted. Nontraumatic in nature. Possibly osteoporosis. She is on hemodialysis and I discussed
with the internet marketing intern who is reviewed her PTH and apparently controlled with vitamin D supplementation. Concern is with bilateral BKA she is using a lot more upper extremities for her activities of daily living which might have predisposed her for
the fracture. She was treated symptomatically with progressive improvement. She was advised to return to PCP and obtain bone density scan and go on osteoporosis treatment as appropriate.
She had a urinalysis which raise concern for UTI and the urine culture came back positive for Klebsiella pneumonia. CT abdomen pelvis above showed questionable cystitis. She she was treated with ceftriaxone and switched to oral Augmentin renal
dose upon discharge.
She received her hemodialysis during the stay here without any issues.
Today she worked with the PT who has cleared her for home health. Pain from the back tolerable with current regimen. Denies shortness of breath. Not hypoxic. Afebrile. Is hemodynamically stable. Chest was clear to auscultation.
[place] medically stable for discharge with home health. Patient was advised to be out of the bed as much as possible. Advised deep breathing. Also advised to look for fever, cough or shortness of breath in which case she needs to be evaluated for
pneumonia.
Total time of discharge 32 minutes
Consultants on board:
Nephrology-Chris Kirk
Discharge Plan
-
Patient Disposition: Home with Home Care
Discharge Diagnosis/Procedures: Right posterior rib fractures nontraumatic; UTI with Klebsiella pneumonia, end-stage renal disease on hemodialysis
Diet: Diabetic, Carb Controlled
Activity: As tolerated
Driving Restrictions: As prior to admission
Bathing Restrictions: None
Other Services: VN and PT
Specialty Instructions: Weigh Daily- Call MD for wt gain/loss 3 lbs overnight/5 lbs in 1 week
Referrals:
Adolfo Cruz DO [Family Provider, Family Practice] - in less than 1 week
Prescriptions:
New
tramadol 50 mg Tablet
50 mg PO [id number] PRN (Reason: moderate pain) Qty: 14 0RF
amoxicillin-pot clavulanate 250-125 mg tablet
1 tab PO BID Qty: 10 0RF
Continued
insulin aspart U-100 [Novolog FlexPen U-100 Insulin] 300 UNITS/3 ML insulin pen
2 sliding scale dose SC AC
gabapentin 100 MG capsule
100 mg PO BID
amiodarone [Pacerone] 200 MG tablet
200 mg PO DAILY
cholecalciferol (vitamin D3) [Vitamin D3] 25 mcg (1,000 unit) Capsule
25 mcg PO MOWEFR
Eliquis 5 mg Tablet
5 mg PO BID
Patient Comments:
one does today
Probiotic 3 billion cell Capsule
3,000 mmu cells PO DAILY
polyethylene glycol 3350 [HealthyLax] 17 gram powder in packet
17 g PO DAILY
tamsulosin 0.4 mg capsule
0.4 mg PO DAILY
rosuvastatin 40 mg Tablet
40 mg PO DAILY
sertraline 50 MG tablet
50 mg PO DAILY 0RF
Discharge Orders:
Discharge Patient (As Directed); Ordered 06/24/25
Ordered By: Juan Diego Cutler
Discharge Date and Time
Print Language: HEBREW
--- NOTE | 2025-06-24 15:05 | CM ---
Met with patient at bedside; reported that her son will transport her home
Plan: discharge to home today w/ home health services from [facility]
[2025-06-24 15:38] VITALS: BP 176/78
[2025-06-24] MEDS: NORVASC 5 MG PO (15:51)
== END 2025-06-24 17:09 | disposition home health service (06) | DRG 689 ==
LOC: 2 NORTH 21:16
PROVIDERS: Internal Medicine Nephrology; Nurse Practitioner; ADMITTING PHYSICIAN Hospitalist; ATTENDING PHYSICIAN Internal Medicine; EMERGENCY PHYSICIAN Emergency Medicine; FAMILY PHYSICIAN Family Medicine; OTHER PHYSICIAN Specialist
PROC: 5A1D70Z Performance of Urinary Filtration, Intermittent, Less than 6 Hours Per Day (ICD-10-PCS; 2025-06-21)
DX: N39.0 Urinary tract infection, site not specified (principal); N18.6 End stage renal disease; I50.32 Chronic diastolic (congestive) heart failure; I13.2 Hypertensive heart and chronic kidney disease with heart failure and with stage 5 chronic kidney disease, or end stage renal disease; N25.81 Secondary hyperparathyroidism of renal origin; M84.48XA Pathological fracture, other site, initial encounter for fracture; B96.1 Klebsiella pneumoniae [K. pneumoniae] as the cause of diseases classified elsewhere; Z99.2 Dependence on renal dialysis; I48.0 Paroxysmal atrial fibrillation; Z79.01 Long term (current) use of anticoagulants; E11.40 Type 2 diabetes mellitus with diabetic neuropathy, unspecified; E11.22 Type 2 diabetes mellitus with diabetic chronic kidney disease; Z89.511 Acquired absence of right leg below knee; Z89.512 Acquired absence of left leg below knee; Z88.6 Allergy status to analgesic agent; Z88.3 Allergy status to other anti-infective agents; Z88.5 Allergy status to narcotic agent; K59.00 Constipation, unspecified; Z88.2 Allergy status to sulfonamides; Z88.1 Allergy status to other antibiotic agents; J45.909 Unspecified asthma, uncomplicated; E78.00 Pure hypercholesterolemia, unspecified; Z79.4 Long term (current) use of insulin; Z79.899 Other long term (current) drug therapy; D64.9 Anemia, unspecified; F32.A Depression, unspecified; F41.9 Anxiety disorder, unspecified; G89.29 Other chronic pain; I25.10 Atherosclerotic heart disease of native coronary artery without angina pectoris; I27.20 Pulmonary hypertension, unspecified; I45.10 Unspecified right bundle-branch block; K21.9 Gastro-esophageal reflux disease without esophagitis; Z66 Do not resuscitate; Z86.73 Personal history of transient ischemic attack (TIA), and cerebral infarction without residual deficits; Z95.5 Presence of coronary angioplasty implant and graft
CPT/HCPCS: 71275; 72072; 72100; 74177; 80051; 80053; 81003; 81015; 82962; 83036; 85014; 85018; 85025; 87070; 87077; 87086; 87186; 93005; 96374; 96375; 97163; 97167; 97530; 97535; 99285; G0257; P9047; Q9967

== ENCOUNTER 2025-07-21 17:23 | Emergency (ER) | payer MEDICARE, OTHER, SELFPAY ==
[2025-07-21 17:25] VITALS: BP 168/66
[2025-07-21 18:06] LABS: Hematocrit 30.5 % (37.0-47.0); Hemoglobin 10.3 g/dL (12.0-16.0); Mean Corp Hgb Conc. 33.8 g/dL (33.0-37.0); Mean Corpuscular Volume 95.3 fL (81.0-99.0); Nucleated Red Blood Cells % 0 %; Platelet Count 114 10^3/uL (130-400); Red Cell Dist. Width 13.3 % (11.5-14.5)
[2025-07-21 18:10] LABS: ALT (SGPT) 15 U/L (0-35); AST (SGOT) 15 U/L (14-36); Albumin 3.8 g/dl (3.5-5.0); Alkaline Phosphatase 95 U/L (38-126); Blood Urea Nitrogen 8 mg/dl (7-17); Calcium 8.5 mg/dl (8.4-10.2); Carbon Dioxide 34 mmol/L (22-30); Chloride 100 mmol/L (98-107); Glucose 139 mg/dl (70-99); Potassium 3.8 mmol/L (3.5-5.1); Sodium 136 mmol/L (135-145); Total Protein 6.3 g/dl (6.3-8.2); eGFR 26.05
--- NOTE | 2025-07-21 19:26 | ED.GENMED ---
History of Present Illness
General
Chief Complaint: Urinary Symptoms
Source: patient and records
Exam Limitations: none
Time Seen by Provider: 07/21/25 19:16
History of Present Illness
History of Present Illness:
74yoF with a history of ESRD on dialysis M/W/F, insulin-dependent diabetes, coronary artery disease, CHF, atrial fibrillation, prior CVA, hypertension, hyperlipidemia presenting for UTI symptoms for the past week or so. Patient reports an odor with
associated dysuria and urinary urgency. She was recently hospitalized last month for a UTI and was treated with IV Rocephin and transition to oral Augmentin at discharge. Patient was at her dialysis appointment today and was speaking with her
assurance senior manager who advised her to go to the ED for a straight catheterization to obtain a urine sample. She reports some nausea but denies any vomiting. No flank pain, fevers, chills.
Past History
Past History
ED Past Medical History: Arrthythmia (Atrial fib), CAD, CHF, CVA (X 2), GERD, HTN, Hypercholesterolemia, IDDM, CA, Renal failure (Will be starting dialysis), Psychiatric (anxiety, depression) and Other (Gastritis with intractiable N/V, Rectal
abscess, Colitis, Indwelling vasquez, UTI, Cellulitis, )
ED Past Surgical History: Cardiac (Angioplasty and stenting X2), , Gynecological and Other (Bilateral BK amputation, Prior-partial right foot amputation)
Patient has exhibited threatening behavior?: No
PSI?: No
Social History
Tobacco: Non-smoker
Alcohol: None
Drug: None
Personal:
Living: with family
Employment: Disabled
Family History
Family History: Hypertension
Phy Exam
General Physical Exam
General Presentation: well appearing and no apparent distress
General Skin: warm and dry
General Habitus: normal
General Mental: alert
ENT Exam
ENT Exam: normocephalic
Pulmonary Exam
Pulmonary Exam: lungs clear, no respiratory distress, no rales, no crackles, no rhonchi and no wheezing
Gastrointestinal Exam
Gastrointestinal Exam: soft, non distended and other (+Suprapubic tenderness. No CVA tenderness.)
Neurological Exam
Neurological Exam: alert
Nelson Coma Scale
Eye Opening: Spontaneous
Verbal Response: Oriented
Motor Response: Obeys Commands
GCS Total Score: 15
Musculoskeletal Exam
Musculoskeletal Exam: other (Bilateral BKA)
Skin Exam
Skin Exam: normal color and warm/dry
Psychiatric Exam
Psychiatric Exam: normal mood/affect
Sepsis
Sepsis Screening
Sepsis Assessment: Sepsis Ruled Out
Sepsis Screen
Sepsis Screen: Sepsis Ruled Out
Date: 07/22/25
Time: 00:05
Course
Orders/Labs/Results
Orders:
Orders
07/21/25 17:30
Comprehensive Metabolic Panel Urgent
07/21/25 17:39
Complete Blood Count/With Diff Urgent
07/21/25 19:25
Straight cath- Treatment ONCE
07/21/25 20:49
Urinalysis Reflex To Culture Urgent
Date Specimen was Collected: 07/21/25
Time Specimen was Collected: 20:46
Urine Microscopic Reflex Cult Urgent
Urine Culture Urgent
[place] Source: U
Specimen Description:
Date Specimen was Collected: 07/21/25
Time Specimen was Collected: 20:46
07/21/25 22:31
Cefdinir [Omnicef] 300 mg PO NOW STA
Abnormal Lab Results
07/21/25 07/21/25 07/21/25
17:30 17:39 20:49
WBC 3.1 L 10^3/uL
(4.8-10.8)
RBC 3.20 L 10^6/uL
(4.20-5.40)
Hgb 10.3 L g/dL
(12.0-16.0)
Hct 30.5 L %
(37.0-47.0)
MCH 32.2 H pg
(27.0-31.0)
Plt Count 114 L 10^3/uL
(130-400)
MPV 11.2 H fL
(7.4-10.4)
Absolute Lymphs (auto) 0.9 L 10^3/uL
(1.2-3.4)
Immature Gran % 0.6 H %
(0-0.5)
Eosinophils % 10.3 H %
(0-6)
Carbon Dioxide 34 H mmol/L
(22-30)
Creatinine 2.0 H mg/dL
(0.6-1.0)
Glucose 139 H mg/dl
(70-99)
Ur Occult Blood Reflex 2+ A
(Negative)
Leukocyte Esterase Rfl 2+ A
(Negative)
Urine RBC 3-6 A /HPF
(0-2)
Urine WBC (Reflex) 70-80 A /HPF
(0-5)
Urine Bacteria (Reflex) Many A
(Negative)
Urine Albumin (Reflex) 2+ A
(Neg - Trace)
07/21/25 17:39
07/21/25 17:30
Vital Signs
Initial and Last Documented VS:
Initial Vital Signs
Temp Pulse Resp BP Pulse Ox
98.3 F 62 15 168/66 99
07/21/25 17:25 07/21/25 17:25 07/21/25 17:25 07/21/25 17:25 07/21/25 17:25
Last Documented Vital Signs
Temp Pulse Resp BP Pulse Ox
98.3 F 78 20 140/80 98
07/21/25 17:25 07/21/25 21:15 07/21/25 21:15 07/21/25 21:15 07/21/25 22:59
MDM/Problems Addressed
Differential Diagnosis Includes:
74yoF here with UTI symptoms x 1 week. No fevers, flank pain, vomiting. Hx of ESRD on HD. Recently admitted a few weeks ago for a UTI. She is mildly hypertensive with otherwise stable vital signs. She is nontoxic-appearing. No CVA tenderness on
exam. Differential diagnosis includes but is not limited to: UTI, atrophic vaginitis, no clinical evidence of pyelonephritis
Initial ED plan: Labs obtained in triage. Mild leukopenia noted with white count of 3.1, absolute neutrophils are normal. No hyperkalemia or acidosis noted on CMP and she did receive a dialysis treatment earlier today. Will order straight cath
and UA.
*Pulse Oximetry
SaO2: 99
Oxygen Mode of Delivery: Room air
Patient hypoxic: no (99%)
*Critical Care Note
Total Time (30-74mins, 75-104mins- exclusive of procedures): Not Applicable
Update Note
Update Note:
UA suggestive of infection with 70-80 WBCs and many bacteria. Patient not meeting any criteria for sepsis. Discussed options with patient including trial of outpatient antibiotics vs. admission. Patient prefers discharge. She was started on a
course of cefdinir, dosing decreased to daily due to end-stage renal disease. She was advised to follow-up with her PCP as well as urology. Strict ED return precautions discussed and she was discharged in stable condition.
ED Attending Note
-
Portions of this chart may have been created with voice recognition software.� Occasional wrong word or��sound alike� substitutions may have occurred due to the inherent limitations of voice recognition software.
Discharge Plan
Departure
Patient Disposition: Home (Routine Discharge)
Date of Disposition: 07/21/25
Time of Disposition: 22:32
Patient with high blood pressure during this ER visit?: Yes
Discharge Problem:
Urinary tract infection
Instructions: Urinary Tract Infection, Adult (DC)
Prescriptions:
New
cefdinir 300 mg capsule
300 mg PO DAILY Qty: 6 0RF
No Action
insulin aspart U-100 [Novolog FlexPen U-100 Insulin] 300 UNITS/3 ML insulin pen
2 sliding scale dose SC AC
gabapentin 100 MG capsule
100 mg PO BID
amiodarone [Pacerone] 200 MG tablet
200 mg PO DAILY
cholecalciferol (vitamin D3) [Vitamin D3] 25 mcg (1,000 unit) Capsule
25 mcg PO MOWEFR
Eliquis 5 mg Tablet
5 mg PO BID
Patient Comments:
one does today
Probiotic 3 billion cell Capsule
3,000 mmu cells PO DAILY
polyethylene glycol 3350 [HealthyLax] 17 gram powder in packet
17 g PO DAILY
tamsulosin 0.4 mg capsule
0.4 mg PO DAILY
rosuvastatin 40 mg Tablet
40 mg PO DAILY
tramadol 50 mg Tablet
50 mg PO [id number] PRN (Reason: moderate pain) Qty: 14 0RF
amlodipine [Norvasc] 5 mg tablet
5 mg PO DAILY Qty: 30 0RF
Rx Instructions:
New medication for BP
cefuroxime axetil 250 mg tablet
250 mg PO DAILY Qty: 5 0RF
sertraline 50 MG tablet
50 mg PO DAILY 0RF
Referrals:
Alexander Lopez MD [Active, Urology]
Adolfo Cruz DO [Family Provider, Family Practice]
Activity Restrictions/Additional Instructions:
Take antibiotics as prescribed.
Please follow-up with your family doctor and urology. Return to the ER with any worsening symptoms including fevers, vomiting, flank pain, or if you do not improve in 3-4 days.
Interventions
Interventions:
*Risk Screen - Suicide Last Done: 07/21/25 17:26
*General Assessment Last Done: 07/21/25 22:59
*Neglect/Abuse Screening Last Done: 07/21/25 17:32
*ED- Fall Risk Assessment Last Done: 07/21/25 21:15
*ED COVID-19 Vaccine History Last Done: 07/21/25 21:15
*Nursing Disposition Last Done: 07/21/25 22:59
ED-Female Genitourinary Assessment Last Done: 07/21/25 21:15
Discharge Date and Time
Discharge Date/Time: 07/21/25 23:00
Print Language: TURKISH
[2025-07-21 20:47] VITALS: BMI 25.0
[2025-07-21 21:02] LABS: Urine Character Cloudy (Clear)
[2025-07-21 21:15] VITALS: BP 140/80
[2025-07-21 21:19] LABS: Urine White Cell 70-80 /HPF (0-5)
[2025-07-21] MEDS: OMNICEF 300 MG PO (22:37)
== END 2025-07-21 23:00 | disposition home or self-care (01) ==
LOC: EMR 17:23
PROVIDERS: Emergency Medicine; EMERGENCY PHYSICIAN Student in an Organized Health Care Education/Training Program; FAMILY PHYSICIAN Family Medicine
DX: N39.0 Urinary tract infection, site not specified (principal); E10.22 Type 1 diabetes mellitus with diabetic chronic kidney disease; I13.2 Hypertensive heart and chronic kidney disease with heart failure and with stage 5 chronic kidney disease, or end stage renal disease; N18.6 End stage renal disease; I50.9 Heart failure, unspecified; I25.10 Atherosclerotic heart disease of native coronary artery without angina pectoris; I48.91 Unspecified atrial fibrillation; E78.00 Pure hypercholesterolemia, unspecified; I25.2 Old myocardial infarction; K21.9 Gastro-esophageal reflux disease without esophagitis; F41.9 Anxiety disorder, unspecified; F32.A Depression, unspecified; Z79.4 Long term (current) use of insulin; Z79.01 Long term (current) use of anticoagulants; Z99.2 Dependence on renal dialysis; Z87.440 Personal history of urinary (tract) infections; Z86.73 Personal history of transient ischemic attack (TIA), and cerebral infarction without residual deficits; Z95.5 Presence of coronary angioplasty implant and graft; Z89.512 Acquired absence of left leg below knee; Z89.511 Acquired absence of right leg below knee; Z89.431 Acquired absence of right foot; Z82.49 Family history of ischemic heart disease and other diseases of the circulatory system
CPT/HCPCS: 99283; 51701; 80053; 81003; 81015; 85025; 87086; 87088

== ENCOUNTER → 2025-08-18 12:27 | Outpatient (REF) | payer MEDICARE, OTHER, SELFPAY ==
[2025-08-18 12:52] VITALS: BP 157/65; BP_SYST 60
[2025-08-18 13:45] VITALS: BP 161/77
== END ==
LOC: RADI 12:27
PROVIDERS: ATTENDING PHYSICIAN Specialist; FAMILY PHYSICIAN Family Medicine
DX: T82.41XA Breakdown (mechanical) of vascular dialysis catheter, initial encounter (principal); Y71.2 Prosthetic and other implants, materials and accessory cardiovascular devices associated with adverse incidents; N13.6 Pyonephrosis; Z99.2 Dependence on renal dialysis
CPT/HCPCS: 36581; 77001; C1750; C1769

== ENCOUNTER → 2025-08-20 12:45 | Outpatient (REF) | payer MEDICARE, OTHER, SELFPAY ==
[2025-08-20 13:39] LABS: Glucose - Point of Care 105 mg/dl (70-99)
[2025-08-20 14:25] VITALS: BP 163/72; BP_SYST 65
== END ==
LOC: RADI 12:45
PROVIDERS: ATTENDING PHYSICIAN Specialist; FAMILY PHYSICIAN Family Medicine
DX: T82.41XA Breakdown (mechanical) of vascular dialysis catheter, initial encounter (principal); Y71.2 Prosthetic and other implants, materials and accessory cardiovascular devices associated with adverse incidents; N18.6 End stage renal disease
CPT/HCPCS: 36581; 36595; 75901; 77001; 82962; C1725; C1750; C1769

== ENCOUNTER 2025-08-28 15:03 | Inpatient (IN) | payer MEDICARE, OTHER, SELFPAY ==
[2025-08-28] VITALS (16 sets, daily range): BP systolic 130–178; BP diastolic 59–99; BMI 23.8; BMI 24.5
[2025-08-28] MEDS: ZOFRAN ODT (ORALLY DISINTEGRATING) 4 MG PO (08:31)
[2025-08-28] MEDS: NSS 500 IV (09:01)
[2025-08-28] MEDS: ZOFRAN 4 MG IV ×2 (09:06→21:10)
[2025-08-28 09:09] LABS: Hematocrit 36.3 % (37.0-47.0); Hemoglobin 12.1 g/dL (12.0-16.0); Mean Corp Hgb Conc. 33.3 g/dL (33.0-37.0); Mean Corpuscular Volume 95.8 fL (81.0-99.0); Nucleated Red Blood Cells % 0 %; Platelet Count 125 10^3/uL (130-400); Red Cell Dist. Width 13.4 % (11.5-14.5)
[2025-08-28 09:27] LABS: Urine Character Clear (Clear)
[2025-08-28 09:41] LABS: Urine Squamous Cell 0-2 /LPF (Few)
[2025-08-28 09:42] LABS: Urine Red Blood Cell None Seen /HPF (0-2); Urine White Cell 0-2 /HPF (0-5)
[2025-08-28] MEDS: MORPHINE SULFATE 4 MG IV (09:57)
[2025-08-28 10:00] LABS: Blood Urea Nitrogen 14 mg/dl (7-17); Calcium 8.9 mg/dl (8.4-10.2); Carbon Dioxide 27 mmol/L (22-30); Chloride 100 mmol/L (98-107); Estimated Creatinine Clearance 18 ml/min; Glucose 193 mg/dl (70-99); Lipase 116 U/L (23-300); Sodium 136 mmol/L (135-145); eGFR 17.40
--- NOTE | 2025-08-28 10:39 | ED.GENMED ---
History of Present Illness
<JEANNETTE Abbasi Last Filed: 08/28/25 15:09>
General
Chief Complaint: Flank Pain
Source: patient
Exam Limitations: none
Time Seen by Provider: 08/28/25 08:04
Nursing documentation reviewed up to this point in time: agreed with
History of Present Illness
History of Present Illness:
see MDM
Past History
<JEANNETTE Abbasi Last Filed: 08/28/25 15:09>
Past History
ED Past Medical History: Arrthythmia (Atrial fib), CAD, CHF, CVA (X 2), GERD, HTN, Hypercholesterolemia, IDDM, AL, Renal failure (Will be starting dialysis), Psychiatric (anxiety, depression) and Other (Gastritis with intractiable N/V, Rectal
abscess, Colitis, Indwelling vasquez, UTI, Cellulitis, )
ED Past Surgical History: Cardiac (Angioplasty and stenting X2), , Gynecological and Other (Bilateral BK amputation, Prior-partial right foot amputation)
Patient has exhibited threatening behavior?: No
PSI?: No
Social History
Tobacco: Non-smoker
Alcohol: None
Drug: None
Personal:
Living: with family
Employment: Disabled
Family History
Family History: Hypertension
Review of Systems
<JEANNETTE Abbasi Last Filed: 08/28/25 15:09>
Review of Systems
Allergies reviewed?: Yes
All Other Systems: Not applicable
Phy Exam
<JEANNETTE Abbasi Last Filed: 08/28/25 15:09>
Physical Exam
Physical Exam:
see MDM
Course
<JEANNETTE Abbasi Last Filed: 08/28/25 15:09>
Orders/Labs/Results
Orders:
Orders
08/28/25 08:19
Straight cath- Treatment ONCE
Ondansetron Orally Disint [Zofran Odt (Orally Disintegrating)] 4 mg PO NOW STA
08/28/25 08:24
Electrocardiogram (*1) Urgent
Reason for Study: Abdominal Pain
EKG- Treatment ONCE
08/28/25 08:38
Urinalysis Reflex To Culture Urgent
Date Specimen was Collected: 08/28/25
Time Specimen was Collected: 08:30
Urine Microscopic Reflex Cult Urgent
08/28/25 08:44
Basic Metabolic Panel Urgent
Complete Blood Count/With Diff Urgent
Lipase Urgent
08/28/25 08:55
0.9% Sodium Chloride 500 ml [Nss] 500 ml IV BOLUS
CR Chest - 2 Views Urgent
Comment:
Reason For Exam: recent rib fx, R flank pain
08/28/25 09:05
Ondansetron Injectable [Zofran] 4 mg .ROUTE .STK-MED ONE
08/28/25 09:06
Ondansetron Injectable [Zofran] 4 mg IV NOW STA
08/28/25 09:31
CT Abd/pel Without Iv Or Oral Urgent
Comment:
Reason For Exam: R flank pain, vomiting
08/28/25 09:43
HYDROmorphone [Dilaudid] 0.25 mg IV NOW STA
08/28/25 09:46
Morphine Sulfate 4 mg IV NOW STA
08/28/25 11:08
Comprehensive Metabolic Panel Urgent
08/28/25 11:18
US Abdomen Complete/Upper Urgent
Comment:
Reason For Exam: vomiting, RUQ/back pain;
08/28/25 13:51
Piperacillin/Tazo 3.375 Gram [Zosyn] 3.375 gram in 50 ml IV NOW
08/28/25 14:21
Admit/Transfer Patient As Directed
Co-Sign Provider:
Level of Care: Inpatient admission
Assign to:: Medical/Surgical
Physician / Group: christy
Diagnosis: acute cholecystitis
Reason for Hospitalization: acute cholecystitis
Expected length of stay greater than two midnights?: Yes
ELOS- Estimated Length of Stay in days: 2
I certify the patient meets the requirements for IP care: Yes
PRN Pain Medication Management As Directed
May give lesser potent ordered pain med per pt: Yes
preference::
Protocol:: Medication orders for pain may be administered in a
manner that supports deferring to patient preference
when the pt is:
- Requesting an ordered lesser potent pain medication.
Least to most potent pain medications are defined
as: acetaminophen < NSAID < tramadol < opioids
(morphine, oxycodone, hydromorphone).
- Requesting a lesser dose of the same medication IF
ORDERED.
- Requesting a less intrusive route of administration
if both routes are prescribed by the provider (PO <
IV).
08/28/25 14:22
Code Status As Directed
Resuscitation Status: Do not resuscitate
Reached after discussion with pt or family/Healthcare POA: Yes
DNR Bracelet Application ONCE
Abnormal Lab Results
08/28/25 08/28/25 08/28/25
08:38 08:44 11:08
RBC 3.79 L 10^6/uL
(4.20-5.40)
Hct 36.3 L %
(37.0-47.0)
MCH 31.9 H pg
(27.0-31.0)
Plt Count 125 L 10^3/uL
(130-400)
MPV 11.1 H fL
(7.4-10.4)
Absolute Lymphs (auto) 0.4 L 10^3/uL
(1.2-3.4)
Neutrophils % 84.7 H %
(42.2-75.2)
Lymphocytes % 7.2 L %
(20.5-51.1)
Creatinine 2.8 H mg/dL 3.0 H mg/dL
(0.6-1.0) (0.6-1.0)
Glucose 193 H mg/dl 206 H mg/dl
(70-99) (70-99)
ALT 43 H U/L
(0-35)
Urine Glucose 2+ A
(Negative)
Urine Albumin (Reflex) 2+ A
(Neg - Trace)
08/28/25 08:44
08/28/25 11:08
Vital Signs
Initial and Last Documented VS:
Initial Vital Signs
BP Pulse Ox
164/70 100
08/28/25 07:50 08/28/25 07:50
Last Documented Vital Signs
Temp Pulse Resp BP Pulse Ox
37.2 C 70 16 178/77 91
08/28/25 12:02 08/28/25 14:00 08/28/25 12:02 08/28/25 12:00 08/28/25 12:30
<Wilmar Mejia, DO - Last Filed: 08/28/25 14:33>
Orders/Labs/Results
Orders:
Orders
08/28/25 08:19
Straight cath- Treatment ONCE
Ondansetron Orally Disint [Zofran Odt (Orally Disintegrating)] 4 mg PO NOW STA
08/28/25 08:24
Electrocardiogram (*1) Urgent
Reason for Study: Abdominal Pain
EKG- Treatment ONCE
08/28/25 08:38
Urinalysis Reflex To Culture Urgent
Date Specimen was Collected: 08/28/25
Time Specimen was Collected: 08:30
Urine Microscopic Reflex Cult Urgent
08/28/25 08:44
Basic Metabolic Panel Urgent
Complete Blood Count/With Diff Urgent
Lipase Urgent
08/28/25 08:55
0.9% Sodium Chloride 500 ml [Nss] 500 ml IV BOLUS
CR Chest - 2 Views Urgent
Comment:
Reason For Exam: recent rib fx, R flank pain
08/28/25 09:05
Ondansetron Injectable [Zofran] 4 mg .ROUTE .STK-MED ONE
08/28/25 09:06
Ondansetron Injectable [Zofran] 4 mg IV NOW STA
08/28/25 09:31
CT Abd/pel Without Iv Or Oral Urgent
Comment:
Reason For Exam: R flank pain, vomiting
08/28/25 09:43
HYDROmorphone [Dilaudid] 0.25 mg IV NOW STA
08/28/25 09:46
Morphine Sulfate 4 mg IV NOW STA
08/28/25 11:08
Comprehensive Metabolic Panel Urgent
08/28/25 11:18
US Abdomen Complete/Upper Urgent
Comment:
Reason For Exam: vomiting, RUQ/back pain;
08/28/25 13:51
Piperacillin/Tazo 3.375 Gram [Zosyn] 3.375 gram in 50 ml IV NOW
08/28/25 14:21
Admit/Transfer Patient As Directed
Co-Sign Provider:
Level of Care: Inpatient admission
Assign to:: Medical/Surgical
Physician / Group: christy
Diagnosis: acute cholecystitis
Reason for Hospitalization: acute cholecystitis
Expected length of stay greater than two midnights?: Yes
ELOS- Estimated Length of Stay in days: 2
I certify the patient meets the requirements for IP care: Yes
PRN Pain Medication Management As Directed
May give lesser potent ordered pain med per pt: Yes
preference::
Protocol:: Medication orders for pain may be administered in a
manner that supports deferring to patient preference
when the pt is:
- Requesting an ordered lesser potent pain medication.
Least to most potent pain medications are defined
as: acetaminophen < NSAID < tramadol < opioids
(morphine, oxycodone, hydromorphone).
- Requesting a lesser dose of the same medication IF
ORDERED.
- Requesting a less intrusive route of administration
if both routes are prescribed by the provider (PO <
IV).
08/28/25 14:22
Code Status As Directed
Resuscitation Status: Do not resuscitate
Reached after discussion with pt or family/Healthcare POA: Yes
DNR Bracelet Application ONCE
Abnormal Lab Results
08/28/25 08/28/25 08/28/25
08:38 08:44 11:08
RBC 3.79 L 10^6/uL
(4.20-5.40)
Hct 36.3 L %
(37.0-47.0)
MCH 31.9 H pg
(27.0-31.0)
Plt Count 125 L 10^3/uL
(130-400)
MPV 11.1 H fL
(7.4-10.4)
Absolute Lymphs (auto) 0.4 L 10^3/uL
(1.2-3.4)
Neutrophils % 84.7 H %
(42.2-75.2)
Lymphocytes % 7.2 L %
(20.5-51.1)
Creatinine 2.8 H mg/dL 3.0 H mg/dL
(0.6-1.0) (0.6-1.0)
Glucose 193 H mg/dl 206 H mg/dl
(70-99) (70-99)
ALT 43 H U/L
(0-35)
Urine Glucose 2+ A
(Negative)
Urine Albumin (Reflex) 2+ A
(Neg - Trace)
08/28/25 08:44
08/28/25 11:08
Vital Signs
Initial and Last Documented VS:
Initial Vital Signs
BP Pulse Ox
164/70 100
08/28/25 07:50 08/28/25 07:50
Last Documented Vital Signs
Temp Pulse Resp BP Pulse Ox
37.2 C 70 16 178/77 91
08/28/25 12:02 08/28/25 14:00 08/28/25 12:02 08/28/25 12:00 08/28/25 12:30
<Denisa Ramos PA-C - Last Filed: 08/28/25 15:09>
MDM/Problems Addressed
Differential Diagnosis Includes:
see MDM
MDM/Problems Addressed:
Note:
CHIEF COMPLAINT(S)
- Severe back pain, worsening over the past week.
- Nausea and difficulty eating.
HISTORY OF PRESENT ILLNESS
The patient is a 74-year-old female extensive history, IDDM s/p bilateral BKA, ESRD on HD m/w/f last dialyzed yesterday
still makes urine, h/o UTI, just completed abx
recent admission may for uti and R sided back samantha with xrays showing R rib fx 7-10 spontaneously, nithout h/o trauma
c/o R sided mid to lower back pain x 1 week worsening lastnight now with n/v.
. Approximately six weeks ago, she was diagnosed with three fractured ribs of unknown origin. Initially, the rib fractures were managed conservatively, and symptoms improved. she had RX for tramadol but diidn't really need it.
The pain is described as worse than before, reaching a severity of nine out of ten. Accompanying symptoms include difficulty breathing and nausea. and vomiting
The patient reports feeling nauseous since dinnertime the previous day, leading to a lack of appetite. She is currently on dialysis, attending sessions on Mondays, Wednesdays, and Fridays, and has been on dialysis for three and a half years due to
complete kidney failure. She denies any recent falls or injuries that might have exacerbated her symptoms. Currently, she uses her arms to assist with transfers due to her amputations.
pt is extremely nauseated
she doesn't tolerate narcotics due to hiccups
PAST MEDICAL AND SURIGICAL HISTORY
- Diabetes mellitus leading to double amputation.
- Complete kidney failure requiring dialysis for three and a half years.
[employer]S AFFECTING HEALTH
The patient lives with her but indicates needing assistance with daily tasks due to limitations from pain and amputations.
REVIEW OF SYSTEMS
- Musculoskeletal: Severe back pain, worsening over the past week.
- Respiratory: Difficulty breathing, particularly due to pain.
- Gastrointestinal: Nausea and lack of appetite, no eating since dinner the previous day.
- Urinary: History of urinary tract infection two weeks ago, unclear if resolved.
PHYSICAL EXAM
- GENERAL: Alert , in no apparent distress, dry heaving
EYE: pupils equal and reactive, anxious
NECK: Supple
ENT: o/p clr, mmm.
CARDIAC: Regular rate and rhythm .
LUNGS: Clear breath sounds bilaterally, no acute respiratory distress, no wheezes/rales/rhonchi
ABDOMEN: Soft, mild right upper quadrant tenderness, right flank tenderness, no rash no r/g, no cvat, normal bowel sounds
NEUROLOGICAL: Alert and oriented, no focal neuro deficits
SKIN: Warm and dry, skin intact.
MUSCULOSKELETAL: No edema, well perfused. neg gio's sign
PSYCH: Normal and appropriate interaction.
- Nursing notes reviewed and vital signs reviewed.
PLAN
- Obtain IV access to administer fluids and medications.
- Blood work to assess current renal function and infection markers.
- Administer Zofran for nausea.
- Consider investigation for potential urinary tract infection with urinalysis, considering previous incomplete resolution post-antibiotic treatment.
- Reevaluate pain management options considering patients intolerance to specific analgesics and current severe pain level.
- Assess possibility of a recurring musculoskeletal injury related to her activities using upper body strength.
DIFFERENTIAL DIAGNOSIS
The Differential Diagnosis includes, in no particular order and is not limited to:
1. Musculoskeletal strain or injury exacerbation.
2. Urinary tract infection relapse.
3. Renal colic or lithiasis.
4. Gallbladder pathology.
5. Pulmonary embolism.
6. Vertebral fracture or pathology.
7. Diabetic neuropathy exacerbation.
8. Gastroesophageal reflux disease.
9. Constipation-related discomfort.
10. Anemia-related fatigue and weakness owing to dialysis regimen impact.
08/28/25 - 11:[address] scan did not reveal any significant issues in the abdomen, back, kidneys, or lungs. However, peptic ulcer symptoms are present. Notably, layering gallstones were observed, potentially causing irritation and discomfort. The patient�s blood
test is needed to further evaluate liver function and assess the gallbladder situation. No fluid accumulation or pneumonia was detected in the lungs, and there is no indication of a kidney infection. Consideration is being given to conducting an
ultrasound for a detailed examination of the gallbladder. A surgical consultation may be necessary if there is evidence of infection or a blockage.
1330
pt's US shows cholelithiasis with diffuse gb wall thickening and + sonographic gurvinder's
will consult surgery
<Denisa Ramos PA-C - Last Filed: 08/28/25 15:09>
*Pulse Oximetry
SaO2: 100
Oxygen Mode of Delivery: Room air
Patient hypoxic: no (100)
*Critical Care Note
Total Time (30-74mins, 75-104mins- exclusive of procedures): Not Applicable
ED Attending Note
<Denisa Ramos PA-C - Last Filed: 08/28/25 15:09>
-
Portions of this chart may have been created with voice recognition software.� Occasional wrong word or��sound alike� substitutions may have occurred due to the inherent limitations of voice recognition software.
<Wilmar Mejia DO - Last Filed: 08/28/25 14:33>
ED Attending Note
Patient seen and examined by attending physician: Yes
I performed the substantive portion of visit, reviewed & personally made and approve the management plan that is documented in note by myself or ANANT.: Yes
Discharge Plan
Departure
Patient Disposition: Admit
Date of Disposition: 08/28/25
Time of Disposition: 13:52
Admit to: Med/Surg
Presentation/result/management discussed w/ accepting MD/DO: Hospitalist
Condition: Fair
Covid-19: Not Applicable
Discharge Problem:
Acute cholecystitis
Prescriptions:
No Action
gabapentin 100 MG capsule
100 mg PO BID
amiodarone [Pacerone] 200 MG tablet
200 mg PO DAILY
cholecalciferol (vitamin D3) [Vitamin D3] 25 mcg (1,000 unit) Capsule
25 mcg PO MOWEFR
Eliquis 5 mg Tablet
5 mg PO BID
Probiotic 3 billion cell Capsule
3,000 mmu cells PO DAILY
polyethylene glycol 3350 [HealthyLax] 17 gram powder in packet
17 g PO DAILY
tamsulosin 0.4 mg capsule
0.4 mg PO DAILY
rosuvastatin 40 mg Tablet
40 mg PO DAILY
amlodipine [Norvasc] 5 mg tablet
5 mg PO DAILY Qty: 30 0RF
cefdinir 300 mg capsule
300 mg PO DAILY Qty: 6 0RF
Patient Comments:
10 day course that ended on 08/26/25
insulin aspart U-100 [Novolog FlexPen U-100 Insulin] 100 unit/mL (3 mL) Insulin Pen
1 sliding scale dose SC DIRECTED
sertraline 50 MG tablet
50 mg PO DAILY 0RF
Referrals:
Adolfo Cruz, [Family Provider, [facility]]
Discharge Date and Time
Print Language: ARGENTINE
[2025-08-28 11:50] LABS: ALT (SGPT) 43 U/L (0-35); AST (SGOT) 31 U/L (14-36); Albumin 3.9 g/dl (3.5-5.0); Alkaline Phosphatase 98 U/L (38-126); Blood Urea Nitrogen 15 mg/dl (7-17); Calcium 8.5 mg/dl (8.4-10.2); Carbon Dioxide 24 mmol/L (22-30); Chloride 101 mmol/L (98-107); Estimated Creatinine Clearance 16 ml/min; Glucose 206 mg/dl (70-99); Potassium 4.5 mmol/L (3.5-5.1); Sodium 136 mmol/L (135-145); Total Protein 6.7 g/dl (6.3-8.2); eGFR 16.02
--- NOTE | 2025-08-28 14:25 | HPS.HSE ---
Family Physician
-
Family Physician: Adolfo Cruz
Chief Complaint
-
abdominal pain
History of Present Illness
74-year-old female past medical history of ESRD on hemodialysis, type 2 diabetes, paroxysmal atrial fibrillation on Eliquis, HFpEF, hypertension, presenting with abdominal pain starting in her right back radiating around to the right upper quadrant
as well as the right shoulder for the past week. She has been nauseous with some dry heaving and mucus production. Denies fevers or chills. She denies diarrhea but has been constipated since starting dialysis. Her last bowel movement 2 days ago.
She has been taking MiraLAX.
6 weeks ago she was told that she had rib fractures and was taking Tylenol for pain at home. The pain had mostly improved.
She last received dialysis yesterday. Last week her catheter for dialysis malfunctioned and the new catheter was placed.
She recently was treated for urinary tract infection. She denies any urinary symptoms at this time.
She denies smoking or alcohol use.
Medical History
Past Medical History
Past Medical History: Reports Other (ESRD on hemodialysis, type 2 diabetes, paroxysmal atrial fibrillation on Eliquis, HFpEF, hypertension)
Past Surgical History: Reports Other (AV fistulas, bilteral BKA )
Social History
Tobacco: Non-smoker
Alcohol: None
Drug: None
Family History
Family History: Not pertinent
Allergies / Home Medications
Allergies reflects when Allergies were last updated in [facility].
Home Medications with original date entered in [facility]
Allergy/Medication List:
Allergies
Allergy/AdvReac Type Severity Reaction Status Date / Time
chlorhexidine Allergy Intermediate Rash Verified 08/28/25 08:00
amoxicillin Allergy Nausea / Verified 08/28/25 08:00
Vomiting
animal dander Allergy Congestion, Verified 08/28/25 08:00
sneezing,
coughing
house dust Allergy Congestion, Verified 08/28/25 08:00
sneezing,
coughing
ibuprofen Allergy 'bleeding Verified 08/28/25 08:00
eyes'
levofloxacin Allergy Unknown Verified 08/28/25 08:00
metoclopramide HCl (From Allergy Restlessnes Verified 08/28/25 08:00
Reglan) s
nitrofurantoin Allergy Unknown Verified 08/28/25 08:00
oxycodone Allergy Severe Verified 08/28/25 08:00
hiccups;
Constipation
pollen extracts Allergy Sneezing; Verified 08/28/25 08:00
asthma
exacerbation
Sulfa (Sulfonamide Allergy Unknown Verified 08/28/25 08:00
Antibiotics)
sulfamethoxazole (From Allergy Hives Verified 08/28/25 08:00
Bactrim)
trimethoprim (From Bactrim) Allergy Hives Verified 08/28/25 08:00
vancomycin Allergy Hives Verified 08/28/25 08:00
Home Medications
sertraline 50 mg tablet 50 mg PO DAILY 05/22/19
gabapentin 100 mg capsule 100 mg PO BID Pain 04/02/23
amiodarone 200 mg tablet (Pacerone) 200 mg PO DAILY Arrhythmia 05/24/23
cholecalciferol (vitamin D3) 25 mcg (1,000 unit) capsule (Vitamin D3) 25 mcg PO MOWEFR Supplement 09/09/23
apixaban 5 mg tablet (Eliquis) 5 mg PO BID Blood Clot Prevention/Tx 10/07/23
lactobacillus combination no.4 3 billion cell capsule (Probiotic) 3,000 mmu cells PO DAILY Gastrointestinal Issue 10/07/23
polyethylene glycol 3350 17 gram oral powder packet (HealthyLax) 17 g PO DAILY Constipation 10/07/23
tamsulosin 0.4 mg capsule 0.4 mg PO DAILY Urinary Issue 10/07/23
rosuvastatin 40 mg tablet 40 mg PO DAILY High Cholesterol 06/20/25
amlodipine 5 mg tablet (Norvasc) 5 mg PO DAILY #30 tabs 06/24/25
cefdinir 300 mg capsule 300 mg PO DAILY #6 caps 07/21/25
insulin aspart U-100 100 unit/mL (3 mL) subcutaneous pen (Novolog FlexPen U-100 Insulin aspart) 1 sliding scale dose SC DIRECTED 08/28/25
Review of Systems
-
History Source: Patient
A 12 point ROS was completed and negative except as noted: Yes
Constitutional: Reports No Symptoms
EENT: Reports No Symptoms
Respiratory: Reports No Symptoms
Cardiac: Reports No Symptoms
Abdomen/GI: Reports See HPI
: Reports No Symptoms
Musculoskeletal: Reports No Symptoms
Skin: Reports No Symptoms
Neurological: Reports No Symptoms
Endocrine: Reports No Symptoms
Hematologic/Lymphatic: Reports No Symptoms
Psych: Reports No Symptoms
Physical Exam
Vital Signs
Vital Signs
Temp Pulse Resp BP Pulse Ox
98.9 F 70 16 178/77 91
08/28/25 12:02 08/28/25 14:00 08/28/25 12:02 08/28/25 12:00 08/28/25 12:30
Physical Exam
General: Well Developed, Well Nourished and No Apparent Distress
HEENT: NormoCephalic, Moist mucous membranes and Atraumatic
Respiratory: Clear
Cardiac: S1/S2 and Regular Rhythm; No Murmur or Rub
GI: Soft, Non Distended, Normal Bowel Sounds and Tender (right abdomen); No Organomegaly
Rectal: Deferred by Provider
Musculoskeletal: No Clubbing, No Cyanosis and No Edema
Skin: No Rash
Neuro: Nonfocal/grossly intact
Laboratory Results
-
08/28/25 08:44
08/28/25 11:08
Laboratory Results
Total Bilirubin 0.9 mg/dl (0.2-1.3) 08/28/25 11:08
AST 31 U/L (14-36) 08/28/25 11:08
ALT 43 U/L (0-35) H 08/28/25 11:08
Alkaline Phosphatase 98 U/L (38-126) 08/28/25 11:08
Lipase 116 U/L (23-300) 08/28/25 08:44
Data Reviewed
-
Lab Data: Labs Reviewed by me
Old Records: Reviewed
Impression/Plan
-
IMPRESSION:
PLAN:
# Acute cholecystitis
-Abdominal ultrasound shows cholelithiasis and mild diffuse gallbladder wall thickening,
-CT abdomen pelvis shows no significant acute abnormality in the abdomen or pelvis
- N.p.o.
- IV fluid bolus given, hold further fluids
- Zosyn
- Zofran, Dilaudid as needed
- General Surgery consulted
ESRD on hemodialysis on Saturday, Saturday, Saturday
-Received dialysis yesterday
- Nephrology consulted for routine dialysis on Saturday
History of multiple failed fistulas
- Patient currently with IJ catheter
History of left upper extremity steal syndrome
Recent fractures of right 4th through 7th ribs
- Tylenol, Dilaudid as needed
Constipation
- Continue MiraLAX
Type 2 diabetes
- Insulin sliding scale
Diabetic neuropathy
- Continue gabapentin
Paroxysmal atrial fibrillation
- Continue amiodarone
- Hold Eliquis
Chronic HFpEF
Right bundle branch block
Essential hypertension
- Continue amlodipine
History of CVA
History of PAD status post bilateral BKA
Chronic anemia with iron deficiency
History of UTI
History of urinary retention
- Continue tamsulosin
Hyperlipidemia
- Continue statin
Anxiety/depression
- Continue sertraline
DNR/DNI
DVT prophylaxis�heparin
N.p.o.
--- NOTE | 2025-08-28 14:59 | CON.GS ---
Consultation
-
Date/Time Consultation Performed: 08/28/25 1500
Medical History
-
Chief Complaint: right sided pain
History of Present Illness:
74 yo female with a h/o CAD, cardiac stents x2, CVA x2, ESRD s/p AV fistulas on LUE and now with HD cath in left jugular, Afib on Eliquis (LD 08/27 pm), HFpEF, DM, BL BKA's and x2 who reports recent right sided rib fractures about 6 weeks
ago with significant discomfort which has since resolved. She began developing pain again to her right mid back around her side near her diaphragm about a week ago which she attributed initially to her prior injury. The pain radiated up behind her
shoulder and down her flank. She noticed that on Saturday in HD, this pain acutely worsened and radiated across into her right lower and upper abdomen. She did not eat during dialysis and did not have much to afterwards that day. During the night, she
developed nausea with vomiting. She reports no further nausea but has been belching. She reports ongoing difficulty with constipation for which she takes laxatives. She has had regular but small, hard Bm's of late. She denies fevers or chills. She
also reports being treated for recurrent UTI's over the past 2 months and recently completed a course of cefdinir one day ago. She currently denies voiding discomfort but does have a history of urinary retention in the past for which she takes
flomax. On exam, she is tender to the right flank and back up to the shoulder. The RUQ and RLQ quadrants are tender with worse tenderness in the RLQ.
Past Medical History
Past Medical History: Arrhythmias (paf on Eliquis (LD 08/27/25 pm)), CAD, CHF, CVA (x2), HTN, Hypercholesterolemia, NIDDM and Psychiatric (depression)
Past Surgical History: Cardiac (stents x2), (x2), Orthopedic (BL BKAs) and Other (AV fistulas (LUE))
Social History
Tobacco: Non-Smoker
Alcohol: None
Drug: None
Living: [facility]
Employment: Disabled
Family History
Family History: Cancer (father with lung ca)
Allergies / Home Medications
Allergy/AdvReac Type Severity Reaction Status Date / Time
chlorhexidine Allergy Intermediate Rash Verified 08/28/25 08:00
amoxicillin Allergy Nausea / Verified 08/28/25 08:00
Vomiting
animal dander Allergy Congestion, Verified 08/28/25 08:00
sneezing,
coughing
house dust Allergy Congestion, Verified 08/28/25 08:00
sneezing,
coughing
ibuprofen Allergy 'bleeding Verified 08/28/25 08:00
eyes'
levofloxacin Allergy Unknown Verified 08/28/25 08:00
metoclopramide HCl (From Allergy Restlessnes Verified 08/28/25 08:00
Reglan) s
nitrofurantoin Allergy Unknown Verified 08/28/25 08:00
oxycodone Allergy Severe Verified 08/28/25 08:00
hiccups;
Constipation
pollen extracts Allergy Sneezing; Verified 08/28/25 08:00
asthma
exacerbation
Sulfa (Sulfonamide Allergy Unknown Verified 08/28/25 08:00
Antibiotics)
sulfamethoxazole (From Allergy Hives Verified 08/28/25 08:00
Bactrim)
trimethoprim (From Bactrim) Allergy Hives Verified 08/28/25 08:00
vancomycin Allergy Hives Verified 08/28/25 08:00
�Medication �Instructions �Recorded �Confirmed �Type
sertraline 50 mg tablet 50 mg PO DAILY 05/22/19 08/28/25 Rx
gabapentin 100 mg capsule 100 mg PO BID Pain 04/02/23 08/28/25 History
amiodarone 200 mg tablet (Pacerone) 200 mg PO DAILY Arrhythmia 05/24/23 08/28/25 History
cholecalciferol (vitamin D3) 25 25 mcg PO MOWEFR Supplement 09/09/23 08/28/25 History
mcg (1,000 unit) capsule (Vitamin
D3)
apixaban 5 mg tablet (Eliquis) 5 mg PO BID Blood Clot 10/07/23 08/28/25 History
Prevention/Tx
lactobacillus combination no.4 3 3,000 mmu cells PO DAILY 10/07/23 08/28/25 History
billion cell capsule (Probiotic) Gastrointestinal Issue
polyethylene glycol 3350 17 gram 17 g PO DAILY Constipation 10/07/23 08/28/25 History
oral powder packet (HealthyLax)
tamsulosin 0.4 mg capsule 0.4 mg PO DAILY Urinary Issue 10/07/23 08/28/25 History
rosuvastatin 40 mg tablet 40 mg PO DAILY High Cholesterol 06/20/25 08/28/25 History
amlodipine 5 mg tablet (Norvasc) 5 mg PO DAILY #30 tabs 06/24/25 08/28/25 Rx
cefdinir 300 mg capsule 300 mg PO DAILY #6 caps 07/21/25 08/28/25 Rx
insulin aspart U-100 100 unit/mL 1 sliding scale dose SC DIRECTED 08/28/25 08/28/25 History
(3 mL) subcutaneous pen (Novolog
FlexPen U-100 Insulin aspart)
Review of Systems
-
History Source: Patient
All other systems: Negative unless noted
A 10 point review of systems was completed, and was negative except as per HPI.
Physical Exam
Vital Signs
Temp Pulse Resp BP Pulse Ox
98.9 F 70 16 178/77 91
08/28/25 12:02 08/28/25 14:00 08/28/25 12:02 08/28/25 12:00 08/28/25 12:30
08/27/25 08/28/25 08/29/25
06:59 06:59 06:59
Actual Weight 68.946 kg
Body Mass Index (BMI) 23.8
Lab Results
08/28/25 08:44
08/28/25 11:08
WBC 5.4 10^3/uL (4.8-10.8) 08/28/25 08:44
Hgb 12.1 g/dL (12.0-16.0) 08/28/25 08:44
Hct 36.3 % (37.0-47.0) L 08/28/25 08:44
Plt Count 125 10^3/uL (130-400) L 08/28/25 08:44
Abs Immat Gran (auto) 0.0 10^3/uL (0-0.05) 08/28/25 08:44
Neutrophils % 84.7 % (42.2-75.2) H 08/28/25 08:44
Physical Exam
General: Well Developed
HEENT: Moist Mucous Membranes
GI: Soft, Non Distended and Tender (RLQ > RLQ)
Musculoskeletal: Other (tender to right upper back/flank down to mid to low back, BL BKA)
Skin: Warm and Dry
Neuro: Awake, Alert and AO x 3
Psych: Calm
Data Reviewed
-
CT Scan: Image Personally Visualized and interpreted, Report Reviewed by me, Discussed with Physician and Discussed with Patient
Ultrasound: Image Personally Visualized and interpreted, Report Reviewed by me, Discussed with Physician and Discussed with Patient
Labs: Labs Reviewed by me, Discussed with Physician and Discussed with Patient
Old Records: Reviewed
Assessment / Plan
-
74 yo female with a h/o CAD, cardiac stents x2, CVA x2, ESRD s/p AV fistulas on LUE and now with HD cath in left jugular, Afib on Eliquis (LD 10/3 pm), HFpEF, DM, BL BKA's and x2 who reports recent right sided rib fractures about 6 weeks
ago with significant discomfort which has since resolved. She began developing pain again to her right mid back around her side near her diaphragm about a week ago which she attributed initially to her prior injury. The pain radiated up behind her
shoulder and down her flank. Pain worsened on Saturday during HD with development of n/v later that night, not associated with food. Ongoing issues with constipation and recurrent UTIs in addition to recent right rib fractures. CXR without acute rib
fractures. Ct a/p with no contrast without acute findings. Constipation present. Abd US with cholelithiasis, very minimal wall thickening. No hydronephrosis. +Hopkins's reported with US. On exam, she is diffusely tender to the right back, flank, RUQ
and RLQ's. UA without evidence of infection. WBC wnl. LFT's wnl other than mildly elevated ALT (43). Afebrile. VSS. Unclear etiology of her symptoms. Suspect musculoskeletal component of her diffuse pain given reported recent rib fractures.
Gallbladder pathology remains in the differential although atypical exam, normal WBCs and imaging findings thus far without findings of inflammation/edema. Will need continued workup with HIDA scan.
Plan:
NPO after MN for HIDA
No narcotics prior to HIDA, hold narcs after MN
Ok for clear liquids today
Continue to hold Eliquis
May benefit from CT chest in work up if HIDA negative
--- NOTE | 2025-08-28 15:12 | EDCM ---
CM reviewed chart and met with pt bedside in ED. Pt lives with her in 2 story home with ramp entrance, has first floor set up.
Pt is bilateral amputee, mostly wheelchair bound, can transfer self. Needs assistance with ADLs and personal care.
Pt goes to HD MWF at [facility] in [place], chair time 11am. transports, has also used [facility] ambulance.
Pt states her 's health is declining, they may need help at home. Given private pay caregiver list and contact information for [facility].
Confirms prescription coverage.
Hx [facility], also [facility] and [facility], does not want to return to [facility].
PCP: Adolfo Cruz
Pharmacy: [facility]
CM will continue to follow for all discharge planning needs.
[2025-08-28] MEDS: ZOSYN 50 IV (16:15)
--- NOTE | 2025-08-28 16:23 | W.CON.NEPH ---
Consultation
-
Date/Time Consultation Requested: 08/28/25 1600
Date/Time Consultation Performed: 08/28/251599
Requesting Provider: Essence Valle
Performing Provider: Jo Ann Redding
Reason for Consultation: ESRD
Medical History
-
Chief Complaint: Abd pain
History of Present Illness:
This is a 74-year-old female who is known to us for end-stage renal disease on hemodialysis Fridays at [facility]. She dialyzes via a CVC as she has had failed AV fistulas in the past. CVC was exchanged last week.
She has diabetes mellitus type 2 which is stable on insulin therapy, paroxysmal atrial fibrillation rate controlled with amiodarone therapy. She is chronically anticoagulated with Eliquis. Recent recurrent UTIs supposed to see in Sep,
completed abx yesterday presents to ER with c/o abdominal pain starting in her right back radiating around to the right upper quadrant as well as the right shoulder for the past week. She has been nauseous with some dry heaving and mucus
production. Denies fevers or chills. She denies diarrhea but has been constipated since starting dialysis. Her last bowel movement 2 days ago. She has been taking MiraLAX. no dysuria currently.
we are asked to assist with management of her dialysis.
W/u in ER reveals acute cholecytisis with cholelithiasis and surg consutled.
Past Medical History
1. Left upper extremity brachiocephalic AV fistula with basilic
vein transposition March 2023.
2. ESRD secondary to diabetic nephropathy with initiation of
dialysis March 2023.
3. Diabetes with neuropathy.
4. Paroxysmal AFib.
5. History of coronary artery disease with stenting.
6. Hypertension.
7. Diastolic heart failure.
8. Moderate pulmonary hypertension with associated moderate MR.
9. History of stroke 2019.
10. Secondary hyperparathyroidism.
11. Bilateral BKA.
12. Iron deficiency.
13. History of urinary retention.
Social History
Tobacco: Non-Smoker
Alcohol: None
Personal:
Living: With Family
Family History
Family History: Not Pertinent
Allergies / Home Medications
Allergy/AdvReac Type Severity Reaction Status Date / Time
chlorhexidine Allergy Intermediate Rash Verified 08/28/25 08:00
amoxicillin Allergy Nausea / Verified 08/28/25 08:00
Vomiting
animal dander Allergy Congestion, Verified 08/28/25 08:00
sneezing,
coughing
house dust Allergy Congestion, Verified 08/28/25 08:00
sneezing,
coughing
ibuprofen Allergy 'bleeding Verified 08/28/25 08:00
eyes'
levofloxacin Allergy Unknown Verified 08/28/25 08:00
metoclopramide HCl (From Allergy Restlessnes Verified 08/28/25 08:00
Reglan) s
nitrofurantoin Allergy Unknown Verified 08/28/25 08:00
oxycodone Allergy Severe Verified 08/28/25 08:00
hiccups;
Constipation
pollen extracts Allergy Sneezing; Verified 08/28/25 08:00
asthma
exacerbation
Sulfa (Sulfonamide Allergy Unknown Verified 08/28/25 08:00
Antibiotics)
sulfamethoxazole (From Allergy Hives Verified 08/28/25 08:00
Bactrim)
trimethoprim (From Bactrim) Allergy Hives Verified 08/28/25 08:00
vancomycin Allergy Hives Verified 08/28/25 08:00
�Medication �Instructions �Recorded �Confirmed �Type
sertraline 50 mg tablet 50 mg PO DAILY 05/22/19 08/28/25 Rx
gabapentin 100 mg capsule 100 mg PO BID Pain 04/02/23 08/28/25 History
amiodarone 200 mg tablet (Pacerone) 200 mg PO DAILY Arrhythmia 05/24/23 08/28/25 History
cholecalciferol (vitamin D3) 25 25 mcg PO MOWEFR Supplement 09/09/23 08/28/25 History
mcg (1,000 unit) capsule (Vitamin
D3)
apixaban 5 mg tablet (Eliquis) 5 mg PO BID Blood Clot 10/07/23 08/28/25 History
Prevention/Tx
lactobacillus combination no.4 3 3,000 mmu cells PO DAILY 10/07/23 08/28/25 History
billion cell capsule (Probiotic) Gastrointestinal Issue
polyethylene glycol 3350 17 gram 17 g PO DAILY Constipation 10/07/23 08/28/25 History
oral powder packet (HealthyLax)
tamsulosin 0.4 mg capsule 0.4 mg PO DAILY Urinary Issue 10/07/23 08/28/25 History
rosuvastatin 40 mg tablet 40 mg PO DAILY High Cholesterol 06/20/25 08/28/25 History
amlodipine 5 mg tablet (Norvasc) 5 mg PO DAILY #30 tabs 06/24/25 08/28/25 Rx
cefdinir 300 mg capsule 300 mg PO DAILY #6 caps 07/21/25 08/28/25 Rx
insulin aspart U-100 100 unit/mL 1 sliding scale dose SC DIRECTED 08/28/25 08/28/25 History
(3 mL) subcutaneous pen (Novolog
FlexPen U-100 Insulin aspart)
Review of Systems
-
All other systems: Negative unless noted
Physical Exam
Vital Signs
Vital Signs
Temp Pulse Resp BP Pulse Ox
98.9 F 74 16 146/65 100
08/28/25 12:02 08/28/25 16:15 08/28/25 12:02 08/28/25 16:00 08/28/25 14:15
Lab Results
WBC 5.4 10^3/uL (4.8-10.8) 08/28/25 08:44
RBC 3.79 10^6/uL (4.20-5.40) L 08/28/25 08:44
Hgb 12.1 g/dL (12.0-16.0) 08/28/25 08:44
Hct 36.3 % (37.0-47.0) L 08/28/25 08:44
Plt Count 125 10^3/uL (130-400) L 08/28/25 08:44
Sodium 136 mmol/L (135-145) 08/28/25 11:08
Potassium 4.5 mmol/L (3.5-5.1) 08/28/25 11:08
Chloride 101 mmol/L (98-107) 08/28/25 11:08
Carbon Dioxide 24 mmol/L (22-30) 08/28/25 11:08
BUN 15 mg/dl (7-17) 08/28/25 11:08
Creatinine 3.0 mg/dL (0.6-1.0) H 08/28/25 11:08
eGFR 16.02 08/28/25 11:08
Glucose 206 mg/dl (70-99) H 08/28/25 11:08
Calcium 8.5 mg/dl (8.4-10.2) 08/28/25 11:08
Albumin 3.9 g/dl (3.5-5.0) 08/28/25 11:08
Physical Exam
General: Awake, Alert, Oriented, AOx3, No Distress and Nontoxic
HEENT: EOMI, Anicteric, Conjunctivae Clear and Facial Symmetry
Respiratory: Clear, Normal Excursion and Nonlabored Respirations
Cardiac: S1/S2 and Regular Rate/Rhythm
Breast: Deferred by me
Abdomen: Soft, Nondistended and Other (TT PRUQ)
Musculoskeletal: Other (bilat BKA)
Skin: No Rash
Neuro: Nonfocal/Grossly Intact
Psych: Mood/afflect pleasant, Insight/judgement good and Appropriate
Vascular Access: CVC
Data Reviewed
-
Labs: Labs Reviewed by me and Discussed with Patient
Assessment/Plan
-
Assessment:
Acute cholecystitis
ESRD on hemodialysis on Saturday, Saturday, Saturday
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
History of left upper extremity steal syndrome
Recent fractures of right 4th through 7th ribs
Constipation
Type 2 diabetes
Diabetic neuropathy
Paroxysmal atrial fibrillation
Chronic HFpEF
Right bundle branch block
Essential hypertension
History of CVA
History of PAD status post bilateral BKA
Chronic anemia with iron deficiency
History of recurrent UTI
History of urinary retention
Hyperlipidemia
Anxiety/depression
Atherosclerotic cardiovascular disease, PAD, CVA history
Plan:
A/w symp ?cholecystitis
s/p 500cc bolus
ok for gentle IVF NS at 40cc/hr if she is NPO
fo HIDA scan in am per surg
BP stable
abx per primary
pain control
next HD on saturday
d/w primary
[2025-08-28 18:20] LABS: Glucose - Point of Care 127 mg/dl (70-99)
[2025-08-28] MEDS: NOVOLOG FLEXPEN-LOW RESISTANCE SC (18:23)
[2025-08-28] MEDS: HEPARIN 5000 UNITS SC (21:10)
[2025-08-28] MEDS: DILAUDID 0.5 MG IV (21:11)
[2025-08-28] MEDS: NEURONTIN 100 MG PO (21:11)
[2025-08-28 22:36] LABS: Glucose - Point of Care 168 mg/dl (70-99)
[2025-08-29] MEDS: ZOSYN 50 IV ×2 (04:30→15:21)
[2025-08-29 06:00] VITALS: BMI 23.7
[2025-08-29] MEDS: ZOFRAN 4 MG IV (06:40)
[2025-08-29 06:56] LABS: Hematocrit 32.8 % (37.0-47.0); Hemoglobin 10.7 g/dL (12.0-16.0); Mean Corp Hgb Conc. 32.6 g/dL (33.0-37.0); Mean Corpuscular Volume 97.9 fL (81.0-99.0); Nucleated Red Blood Cells % 0 %; Platelet Count 139 10^3/uL (130-400); Red Cell Dist. Width 13.2 % (11.5-14.5)
[2025-08-29 07:32] LABS: ALT (SGPT) 59 U/L (0-35); AST (SGOT) 39 U/L (14-36); Albumin 3.6 g/dl (3.5-5.0); Alkaline Phosphatase 97 U/L (38-126); Blood Urea Nitrogen 23 mg/dl (7-17); Calcium 8.5 mg/dl (8.4-10.2); Carbon Dioxide 29 mmol/L (22-30); Chloride 99 mmol/L (98-107); Estimated Creatinine Clearance 12 ml/min; Glucose 120 mg/dl (70-99); Potassium 4.5 mmol/L (3.5-5.1); Sodium 135 mmol/L (135-145); Total Protein 6.2 g/dl (6.3-8.2); eGFR 11.34
[2025-08-29] MEDS: NOVOLOG FLEXPEN-LOW RESISTANCE SC ×2 (07:59→12:03)
--- NOTE | 2025-08-29 08:02 | W.PN.HOSP.TC ---
Today's Communication/Plan
-
Follow results of HIDA scan, continue Zosyn.
Assessment / Plan
Assessment / Plan
Impression -
74-year-old female with PMHx significant for ESRD on hemodialysis, IJ catheter placement, LUE steal syndrome, IDDM, paroxysmal A-fib, chronic HFpEF, hypertension, hyperlipidemia, CVA, PAD s/p BKA, neurogenic bladder, anxiety/depression presents to
the hospital for evaluation of right upper lower quadrant abdominal pain radiating to right scapula. Diagnosed with cholelithiasis without cholecystitis and is admitted to the hospital.
Assessment and plan -
# Acute cholecystitis -
As evidenced on ultrasound of the abdomen, diffuse gallbladder wall thickening.
CT abdomen and pelvis with no acute abnormality.
General Surgery on board, recommended HIDA scan, pending
Continue IV antibiotics monitor temperature and CBC
NPO since admission
# Leukopenia-
Likely secondary to Acute cholceystitis
ESRD on hemodialysis on Saturday, Saturday, Saturday
Nephrology on board for Hemodialysis,
IJ site without any erythema, or edema
Neurogenic bladder-
S/p straight cath in the ER, 400 mL urine output.
Patient admits to have discontinued tamsulosin for few days
Completion of cephalexin for recent UTI on 08/26.
Bladder scan protocol.
Paroxysmal A-fib-
On amiodarone
[id number] score-6
Eliquis held for possible cholecystitis surgery.
History of right sided rib fractures 4-7
Continue optimal pain management
Type 2 diabetes mellitus-
Complicated by neurogenic bladder and diabetic neuropathy
Insulin sliding scale
Accu-Cheks AM and at bedtime
Continue gabapentin.
Chronic HFpEF -
Currently euvolemic, monitor weights
Restrict fluids when diet is resumed.
2 g sodium diet.
Essential hypertension-continue amlodipine
Anxiety/depression-continue sertraline
Hyperlipidemia-continue home dose statin
Conditions GRID TRIMMER- Stable
RBBB
CVA
PAD s/p bilateral BKA
Chronic iron deficiency anemia
DVT prophylaxis-
Heparin subcu
CODE STATUS-
DNR.
Anticipated Discharge: Today
Subjective/Interval History
-
Date of Service: August 29, 2025
Tram is a 74-year-old female with PMHx significant for ESRD on hemodialysis (Saturday regimen), history of multiple failed fistulas currently on IJ catheter, left upper extremity steal syndrome, type 2 diabetes mellitus
insulin-dependent, diabetic neuropathy, BKA bilateral, paroxysmal A-fib on anticoagulation, chronic HFpEF, CVA, PAD, iron deficiency anemia, history of urinary retention (neurogenic bladder), anxiety and depression presents to the hospital for
evaluation of right lower quadrant abdominal pain. Her abdominal pain started about 5 days ago, radiated into her lower back and worked its way up into her right scapula. Her pain is currently 7/10 in intensity, and worsens with inspirations. She
has used heat packing and Tylenol at home with no much relief. She started having dry cough for 4 days now, and reports to have multiple episodes of vomitings associated with nausea with dry heaving the night before she presented to the ER. She
states that her appetite has been poor since Saturday.
She admits to have a recent urinary tract infection for which she was on and off of antibiotics for about 2 months now, and her last dose of antibiotic was about 2 days prior to hospitalization. She states that she has not taken her medication for
neurogenic bladder, and she was straight cathed with about 300 mL of urine in the ER yesterday.
Yesterday-she took tramadol with no significant help.
She denies having any change in bowel movements, dysuria, frequency, hesitancy, fevers, chills, chest pain, dyspnea on exertion, orthopnea, PND.
Objective Data
-
Labs:
Laboratory Results
08/29/25
06:25
WBC 4.1 L
Hgb 10.7 L
Hct 32.8 L
Plt Count 139
Sodium 135
Potassium 4.5
Chloride 99
Carbon Dioxide 29
BUN 23 H
Creatinine 4.0 H
Glucose 120 H
Calcium 8.5
Total Bilirubin 0.8
AST 39 H
ALT 59 H
Alkaline Phosphatase 97
Vital Signs:
Vital Signs
Temp Pulse Resp BP Pulse Ox
98.4 F 60 16 130/62 98
08/28/25 23:00 08/28/25 23:00 08/28/25 23:00 08/28/25 23:00 08/28/25 23:00
Review of Systems
-
History Source: Patient
Constitutional: Reports Fatigue
EENT: Reports No Symptoms Reported
Respiratory: Reports Cough; Denies Trouble Breathing or Wheezing
Cardiac: Denies Chest Pain, Diaphoresis, Palpitations, Syncope, PND or Orthopnea
Abdomen/GI: Reports Abdominal Pain (Right lower quadrant.), Nausea and Vomiting; Denies Diarrhea, Constipated, Bloody Stools or Black Stools
Breast: Reports No Symptoms
Genitourinary: Reports Difficulty Voiding
Musculoskeletal: Reports Other (Right scapular pain, right sided back pain)
Neuro: Reports No Symptoms
Endocrine: Reports No Symptoms
Hematologic / Lymphatic: Reports No Symptoms
Allergy / Immunology: Reports No Symptoms
Physical Exam
-
General: No Apparent Distress and Comfortable
HEENT: Moist Mucous Membranes, Anicteric, [place] Conjunctivae and PERRLA
Respiratory: Clear to Auscultation; Negative Wheezes, Rales, Rhonchi or Crackles
Cardiac: Regular Rhythm, S1/S2 and JVD; Negative Murmur or Rub
GI: Soft, Nondistended, Normal Bowel Sounds, Tender (In right lower quadrant, and right upper quadrant), No Hepatosplenomegaly and Other
Musculoskeletal: No Clubbing, No Cyanosis and Other (Bilateral BKA, bilateral 2+ posterior tibial pulses)
Neuro: AO x 3 and No Motor Deficits
Psych: Calm
Data Reviewed
-
CT Scan: Image personally visualized and interpreted, Report Reviewed by me, Discussed with Physician and Discussed with Patient
Medical Tests (Nuc Med, Echo etc): Report Reviewed by me and Discussed with Physician
Labs: Labs Reviewed by me, Discussed with Physician and Discussed with Patient
[2025-08-29] MEDS: CRESTOR 40 MG PO (08:03)
[2025-08-29] MEDS: NORVASC 5 MG PO (08:03)
[2025-08-29] MEDS: NEURONTIN 100 MG PO ×2 (08:03→20:53)
[2025-08-29] MEDS: FLOMAX 0.4 MG PO (08:03)
[2025-08-29] MEDS: PACERONE 200 MG PO (08:03)
[2025-08-29] MEDS: HEPARIN 5000 UNITS SC ×2 (08:04→20:53)
[2025-08-29] MEDS: MIRALAX 17 GRAMS PO (08:05)
[2025-08-29] MEDS: ZOLOFT 50 MG PO (08:06)
--- NOTE | 2025-08-29 08:08 | W.PN.UPDATE ---
Update Note
Progress Note Update
I have independently evaluated the patient at bedside. I reviewed the resident documentation unless otherwise
AFVSS. No fevers overnight though has developed leukopenia. Denies any new complaints though still has some RUQ discomfort and associated nausea
AFVSS, NAD, chronically ill-appearing. Benign cardiopulmonary exam. Mild RUQ discomfort, no peritoneal signs, Hopkins negative. No edema, palpable pulses. Skin warm and dry, no jaundice. Bilateral BKA. No obvious FND.
#Abdomen pain with concern for acute cholecystitis. RUQ ultrasound with gallbladder wall thickening though unclear if truly cholecystitis. General surgery following, recommended HIDA scan. Currently on IV Zosyn, will continue with Zosyn pending
results of her HIDA scan. Trend CBC, temperature curve, abdomen exam.
Diet -- NPO for now pending HIDA scan
Thromboprophylaxis -- SQ heparin
CODE STATUS -- DNR
Disposition -- PT consulted
[2025-08-29 11:18] LABS: Glucose - Point of Care 106 mg/dl (70-99)
[2025-08-29 12:09] LABS: Glycohemoglobin (HgbA1c) 6.2 % (4.0-5.6)
[2025-08-29 13:22] VITALS: BMI 23.7
[2025-08-29] MEDS: DILAUDID 0.5 MG IV (13:46)
[2025-08-29 15:11] VITALS: BP 103/56
[2025-08-29 16:25] LABS: Glucose - Point of Care 187 mg/dl (70-99)
--- NOTE | 2025-08-29 16:27 | W.PN.NEPH.PH ---
Today's Communication / Plan
-
HD tomorrow
Assessment/Plan
-
Assessment:
Acute cholecystitis
ESRD on hemodialysis on Saturday, Saturday, Saturday
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
History of left upper extremity steal syndrome
Recent fractures of right 4th through 7th ribs
Constipation
Type 2 diabetes
Diabetic neuropathy
Paroxysmal atrial fibrillation
Chronic HFpEF
Right bundle branch block
Essential hypertension
History of CVA
History of PAD status post bilateral BKA
Chronic anemia with iron deficiency
History of recurrent UTI
History of urinary retention
Hyperlipidemia
Anxiety/depression
Atherosclerotic cardiovascular disease, PAD, CVA history
Plan:
A/w symp ?cholecystitis
tolerating liquids
HIDA is negative
she is still with pain requiring IV meds
BP stable
abx per primary
pain control
next HD on saturday
-
-
Date of Service: August 29, 2025
CC / HPI / ROS
-
Chief Complaint:
ESRD
History of Present Illness:
BP stable
no fever
WBC 4.1 normal , hb 10.7
Review of Systems:
no CP/SOB
still RUQ pain
no n/v
Labs
-
Labs:
WBC 4.1 10^3/uL (4.8-10.8) L 08/29/25 06:25
RBC 3.35 10^6/uL (4.20-5.40) L 08/29/25 06:25
Hgb 10.7 g/dL (12.0-16.0) L 08/29/25 06:25
Hct 32.8 % (37.0-47.0) L 08/29/25 06:25
Plt Count 139 10^3/uL (130-400) 08/29/25 06:25
Sodium 135 mmol/L (135-145) 08/29/25 06:25
Potassium 4.5 mmol/L (3.5-5.1) 08/29/25 06:25
Chloride 99 mmol/L (98-107) 08/29/25 06:25
Carbon Dioxide 29 mmol/L (22-30) 08/29/25 06:25
BUN 23 mg/dl (7-17) H 08/29/25 06:25
Creatinine 4.0 mg/dL (0.6-1.0) H 08/29/25 06:25
eGFR 11.34 08/29/25 06:25
Glucose 120 mg/dl (70-99) H 08/29/25 06:25
Calcium 8.5 mg/dl (8.4-10.2) 08/29/25 06:25
Albumin 3.6 g/dl (3.5-5.0) 08/29/25 06:25
Physical Exam
-
Vital Signs:
Vital Signs
Temp Pulse Resp BP Pulse Ox
97.9 F 57 16 103/56 99
08/29/25 15:11 08/29/25 15:11 08/29/25 15:11 08/29/25 15:11 08/29/25 15:11
Cardiovascular:: Regular rate and rhythm
Respiratory:: Bilateral: CTA
Lung Excursion:: Normal
Abdomen:: Nontender and Soft
Bowel Sounds:: Normal
Other Findings::
bilat BKA
[2025-08-29] MEDS: NOVOLOG FLEXPEN-LOW RESISTANCE 1 UNITS SC (17:02)
--- NOTE | 2025-08-29 20:03 | W.PN.GS2 ---
Today's Communication / Plan
-
as below
Assessment / Plan
-
74-year-old female with PMH of ESRD on HD, CVA, DM, paroxysmal A-fib (on Eliquis, last dose p.m. of 08/27), CAD s/p stents, HTN, diastolic CHF, pulmonary hypertension, s/p bilateral BKA, who presents with 1 week of right flank, upper back and
shoulder pain. About 2 months ago, she fractured her right sided ribs and has been having pain on that side. 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 In the ED, WBC 5.4, T. bili 0.9, LFTs normal, CT without acute findings, gallbladder ultrasound showing gallstones, gwt of 3.6 mm (likely adenomyomatosis), no pericholecystic fluid, sonographic Hopkins
sign, CBD normal. General consulted to consider cholecystitis
AF VSS
WBC 4.1, Hb 10.7, Cr 4.0, tbili 0.8
� Right sided flank/abdominal pain, normal CT but US equivocal for cholecystitis
�HIDA negative, no concern for cholecystitis
�No antibiotics necessary from general surgery standpoint
� Appreciate hospitalist; general surgery to sign off; please call for questions or concerns
Subjective Data
-
Date of Service: August 29, 2025
Patient still with right sided pain radiating to the right flank and right lower abdomen. Denies N/V
Objective Data
-
Intake and Output
08/28/25 08/29/25 08/30/25
06:59 06:59 06:59
Intake Total 1010 / 1010
Balance 1010 / 1010
Intake:
Oral fluids 960 / 960
IV fluids (Total) 50 / 50
Other:
Number of approximated MODERATE 2 2
amounts of urine
Vital Signs
Temp Pulse Resp BP Pulse Ox
97.9 F 57 16 103/56 99
08/29/25 15:11 08/29/25 15:11 08/29/25 15:11 08/29/25 15:11 08/29/25 15:11
Lab Results
08/29/25 06:25
08/29/25 06:25
Calcium 8.5 mg/dl (8.4-10.2) 08/29/25 06:25
Total Bilirubin 0.8 mg/dl (0.2-1.3) 08/29/25 06:25
AST 39 U/L (14-36) H 08/29/25:25
ALT 59 U/L (0-35) H 08/29/25 06:25
Alkaline Phosphatase 97 U/L (38-126) 08/29/25 06:25
Total Protein 6.2 g/dl (6.3-8.2) L 08/29/25 06:25
Albumin 3.6 g/dl (3.5-5.0) 08/29/25 06:25
Physical Exam
-
NAD
B/L excursion
s1/s1
abd s/nd/mild ttp to the right bart-abdomen, no r/g
[2025-08-29 21:04] LABS: Glucose - Point of Care 170 mg/dl (70-99)
[2025-08-29 23:00] VITALS: BP 125/63
[2025-08-30] MEDS: ZOSYN 50 IV ×3 (04:30→20:49)
[2025-08-30 05:56] VITALS: BMI 24.1
[2025-08-30] MEDS: DILAUDID 0.5 MG IV ×3 (07:23→20:50)
[2025-08-30] MEDS: NEURONTIN 100 MG PO ×2 (07:43→20:49)
[2025-08-30] MEDS: PACERONE 200 MG PO (07:44)
[2025-08-30] MEDS: HEPARIN 5000 UNITS SC (07:46)
[2025-08-30 07:51] LABS: Glucose - Point of Care 116 mg/dl (70-99)
[2025-08-30 08:18] LABS: Hematocrit 33.9 % (37.0-47.0); Hemoglobin 10.9 g/dL (12.0-16.0); Mean Corp Hgb Conc. 32.2 g/dL (33.0-37.0); Mean Corpuscular Volume 97.1 fL (81.0-99.0); Nucleated Red Blood Cells % 0 %; Platelet Count 146 10^3/uL (130-400); Red Cell Dist. Width 13.3 % (11.5-14.5)
[2025-08-30] MEDS: NOVOLOG FLEXPEN-LOW RESISTANCE SC ×3 (08:18→18:16)
[2025-08-30 08:21] VITALS: BP 137/68
[2025-08-30 08:34] LABS: ALT (SGPT) 56 U/L (0-35); AST (SGOT) 32 U/L (14-36); Albumin 3.8 g/dl (3.5-5.0); Alkaline Phosphatase 102 U/L (38-126); Blood Urea Nitrogen 30 mg/dl (7-17); Calcium 8.3 mg/dl (8.4-10.2); Carbon Dioxide 25 mmol/L (22-30); Chloride 98 mmol/L (98-107); Estimated Creatinine Clearance 9 ml/min; Glucose 122 mg/dl (70-99); Potassium 4.4 mmol/L (3.5-5.1); Sodium 134 mmol/L (135-145); Total Protein 6.5 g/dl (6.3-8.2); eGFR 8.09
--- NOTE | 2025-08-30 09:11 | W.PN.HOSP.TC ---
Addendum entered and electronically signed by Mynor Kramer MD 08/30/25 13:59:
Abdominal pain, unclear as to etiology could be related to previous rib fractures or new rib fractures versus musculoskeletal, acute cholecystitis workup has been negative after HIDA scan and surgery signed off
Check CT chest abdomen pelvis with contrast with special attention to ribs look for any type of abscesses or any morphological changes to right hemidiaphragm area
ESRD on hemodialysis Saturday
Permacatheter appears CDI
Nephrology following
Paroxysmal atrial fibrillation
On amiodarone
Resume Eliquis
Type 2 diabetes
Accu-Cheks sliding scale goal blood glucose
Carb controlled diet
Neurogenic bladder
Continue Flomax
Diabetic neuropathy
Continue gabapentin
HFpEF, NYHA class II
Unable to provide MRA/SGLT2 inhibitors as on dialysis
Monitor volume status and manage with hemodialysis
Read, reviewed, and agree. See same day progress note for additional details. Time spent reviewing records in EMR, med rec, consults, notes, d/w consultants, nursing, family, and CM
Original Note:
Today's Communication/Plan
-
Hemodialysis today
CT chest abdomen and pelvis with oral and IV contrast
Assessment / Plan
Assessment / Plan
Impression -
74-year-old female with PMHx significant for ESRD on hemodialysis, IJ catheter placement, LUE steal syndrome, IDDM, paroxysmal A-fib, chronic HFpEF, hypertension, hyperlipidemia, CVA, PAD s/p BKA, neurogenic bladder, anxiety/depression presents to
the hospital for evaluation of right upper lower quadrant abdominal pain radiating to right scapula.
Diagnosed with cholelithiasis without cholecystitis and is admitted to the hospital.
Assessment and plan -
# Abdominal pain with concern for acute cholecystitis
Ultrasound of abdomen consistent with, diffuse gallbladder wall thickening-HIDA scan negative for acute cholecystitis
CT abdomen and pelvis with no acute abnormality.
General Surgery signed off
Currently on Zosyn
CT chest, abdomen and pelvis with oral and IV contrast to look for underlying pathology-need to have a deeper look at the structures-if nothing found-refer to pain management
No leukocytosis, remained afebrile, hemoglobin stable, platelets stable
On clear liquid diet
#ESRD on hemodialysis on Saturday, Saturday, Saturday
Nephrology on board for Hemodialysis,
IJ site without any erythema, or edema
#Type 2 diabetes mellitus complicated with neurogenic bladder
On insulin sliding scale
Continue gabapentin for neuropathy
Continue tamsulosin
continue bladder scan protocol-s/p straight cath in ER
Paroxysmal A-fib-
On amiodarone
[id number] score-6
Resume Eliquis.
History of right sided rib fractures 4-7
Continue optimal pain management
Other medical conditions
Chronic HFpEF -
Currently euvolemic, monitor weights
Restrict fluids when diet is resumed.
2 g sodium diet.
Essential hypertension-continue amlodipine
Anxiety/depression-continue sertraline
Hyperlipidemia-continue home dose statin
RBBB
CVA
PAD s/p bilateral BKA
Chronic iron deficiency anemia
DVT prophylaxis-
Heparin subcu
CODE STATUS-DNR.
Anticipated Discharge: 24 - 48 hours
Subjective/Interval History
-
Date of Service: August 30, 2025
Patient seen and examined at bedside
She is having her hemodialysis session this morning, serum creatinine 5.3, nephrology following
Still complains of pain in her flanks rated 7/10-improved with pain medication
Objective Data
-
Labs:
Laboratory Results
08/30/25
07:00
WBC 4.9
Hgb 10.9 L
Hct 33.9 L
Plt Count 146
Sodium 134 L
Potassium 4.4
Chloride 98
Carbon Dioxide 25
BUN 30 H
Creatinine 5.3 H*
Glucose 122 H
Calcium 8.3 L
Total Bilirubin 0.7
AST 32
ALT 56 H
Alkaline Phosphatase 102
Vital Signs:
Vital Signs
Temp Pulse Resp BP Pulse Ox
98.0 F 55 18 137/68 97
08/30/25 08:21 08/30/25 08:21 08/30/25 08:21 08/30/25 08:21 08/30/25 08:21
I&O
08/29/25 08/30/25 08/31/25
06:59 06:59 06:59
Intake Total 1010 / 1010
Balance 1010 / 1010
Review of Systems
-
Abdomen/GI: Reports Abdominal Pain (Right and left flank)
Genitourinary: Reports Flank Pain
Physical Exam
-
General: Well Developed, Well Nourished and Comfortable
HEENT: Moist Mucous Membranes, Anicteric and [place] Conjunctivae
Respiratory: Clear to Auscultation; Negative Wheezes, Rales or Rhonchi
Cardiac: Regular Rhythm and S1/S2; Negative Murmur, Rub or Gallop
GI: Soft, Nondistended, Normal Bowel Sounds, Tender (Right upper quadrant and right lower quadrant) and No Hepatosplenomegaly
Musculoskeletal: No Cyanosis, No Edema and Other (Bilateral below-knee amp)
Neuro: Awake and AO x 3
Psych: Calm
[2025-08-30] MEDS: OMNIPAQUE 50 ML PO (11:54)
[2025-08-30] MEDS: CRESTOR 40 MG PO (11:56)
[2025-08-30] MEDS: ZOLOFT 50 MG PO (11:58)
[2025-08-30] MEDS: FLOMAX 0.4 MG PO (11:58)
[2025-08-30] MEDS: NORVASC 5 MG PO (11:58)
[2025-08-30] MEDS: MIRALAX 17 GRAMS PO (11:59)
[2025-08-30 12:04] LABS: Glucose - Point of Care 86 mg/dl (70-99)
[2025-08-30 12:05] VITALS: BMI 24.1
--- NOTE | 2025-08-30 12:23 | CM ---
rig manager reviewed patient's chart and met with patient and patient to return to home with spouse when stable, Patient to return to HD at [facility] patient's spouse to transport while he can and if he cant's patient will use [facility] w/c
van.
Plan; Patient to return to with [facility] and outpatient HD [facility]
[phone]
--- NOTE | 2025-08-30 13:48 | VNURNOTE ---
Home Health Liaison met with patient at bedside to discuss [facility] nurse/therapy, visits, schedule and homebound status. Patient is agreeable and understands that visits at home will be 2-3 x per week to assess and teach medical management. She
recently had [facility] in June. She is familiar with services. Patient is aware that [facility] will contact them for start of care in 1-2 days after discharge from . Pt has contact number for [facility].
[facility] referral completed in [facility].
--- NOTE | 2025-08-30 14:42 | W.PN.NEPH.HD ---
Assessment
-
Seen on HD. still with abdominal pain. VSS, access ok
for CT A/P with IV contrast
Progress Note - Hemodialysis
-
Date of Service: August 30, 2025
Duration: 30 minutes and 3 hours
Potassium Bath: 2
Calcium Bath: 2.5
Opti-Dialyzer: 160
Ultrafiltration: Other (1kg)
Blood Flow: 400
Dialysate Flow: 600
Heparin: 0
EPO: 0
[2025-08-30] MEDS: FLUSH (NSS) 2 FLUSH IV (15:58)
[2025-08-30 16:35] LABS: Glucose - Point of Care 85 mg/dl (70-99)
[2025-08-30 16:49] VITALS: BP 134/60
[2025-08-30] MEDS: VITAMIN D3 (cholecalciferol) 25 MCG PO (17:58)
[2025-08-30] MEDS: ELIQUIS 5 MG PO (20:49)
[2025-08-30 21:13] LABS: Glucose - Point of Care 197 mg/dl (70-99)
[2025-08-30 22:54] VITALS: BP 112/52
[2025-08-31] MEDS: ZOSYN 50 IV (03:19)
[2025-08-31 06:00] VITALS: BMI 24.0
[2025-08-31] MEDS: ZOFRAN 4 MG IV (06:02)
[2025-08-31 07:30] VITALS: BP 137/67
[2025-08-31] MEDS: ZOLOFT 50 MG PO (08:39)
[2025-08-31] MEDS: ELIQUIS 5 MG PO ×2 (08:39→19:53)
[2025-08-31] MEDS: PACERONE 200 MG PO (08:39)
[2025-08-31] MEDS: NORVASC 5 MG PO (08:39)
[2025-08-31] MEDS: NEURONTIN 100 MG PO ×2 (08:39→19:53)
[2025-08-31] MEDS: FLOMAX 0.4 MG PO (08:39)
[2025-08-31] MEDS: CRESTOR 40 MG PO (08:39)
[2025-08-31] MEDS: MIRALAX PO (08:42)
[2025-08-31] MEDS: NOVOLOG FLEXPEN-LOW RESISTANCE SC ×3 (08:45→17:20)
[2025-08-31 08:46] LABS: Glucose - Point of Care 115 mg/dl (70-99)
[2025-08-31 08:47] LABS: Hematocrit 34.7 % (37.0-47.0); Hemoglobin 11.4 g/dL (12.0-16.0); Mean Corp Hgb Conc. 32.9 g/dL (33.0-37.0); Mean Corpuscular Volume 96.4 fL (81.0-99.0); Nucleated Red Blood Cells % 0 %; Platelet Count 150 10^3/uL (130-400); Red Cell Dist. Width 13.2 % (11.5-14.5)
[2025-08-31 09:21] LABS: ALT (SGPT) 64 U/L (0-35); AST (SGOT) 40 U/L (14-36); Albumin 3.8 g/dl (3.5-5.0); Alkaline Phosphatase 102 U/L (38-126); Blood Urea Nitrogen 13 mg/dl (7-17); Calcium 8.3 mg/dl (8.4-10.2); Carbon Dioxide 27 mmol/L (22-30); Chloride 95 mmol/L (98-107); Estimated Creatinine Clearance 15 ml/min; Glucose 107 mg/dl (70-99); Potassium 4.0 mmol/L (3.5-5.1); Sodium 131 mmol/L (135-145); Total Protein 6.5 g/dl (6.3-8.2); eGFR 13.78
[2025-08-31 13:03] LABS: Glucose - Point of Care 120 mg/dl (70-99)
--- NOTE | 2025-08-31 13:07 | CM ---
Addendum entered by Toño Jaime 08/31/25 15:04:
Discussed w/ PT, will recommend skilled rehab as patient needs assistance at this time
Discussed w/ patient and son, who was on the phone, reviewed facilities that offer HD on site. Patient identified [facility] as first choice and [facility] as second choice. Referrals placed in [facility]
Patient concerned that she may lose her dialysis chair time at [facility] in [place]. Patient stated she can't afford to go to a further location if she loses her chair time. Patient will call [facility] regarding this.
Original Note:
Chart reviewed. Per hospitalist, plan to d/c patient today. Patient has transportation need and home support needs.
Met w/ patient bedside who is aware of d/c. Patient stated she doesn't think she can d/c home today. Patient stated she has 4 new broken ribs, wants to know they keep breaking as she has some old broken ribs as well. Patient stated she needs
assistance at home for herself and her as he can't do much anymore. Patient stated she had [facility] before and PT couldn't do much because she couldn't really move due to the broken ribs at the time. CM verified the resources provided while
patient was in the ED. Patient had a directory of different resources, including contact information for [facility]. CM also provided additional information for [facility]. CM informed patient she will have to call about
caregiver/aide support. Patient asking to see physical therapy today and if hospitalist can stop the discharge.
CM reviewed IMM w/ patient, provided copy, copy on chart
TT hospitalist and PA regarding patient's concerns about her ribs and PT evaluation
--- NOTE | 2025-08-31 13:43 | W.PN.UPDATE ---
Update Note
Progress Note Update
Flank pain secondary to rib fractures subacute to acute noted on CT
Likely related to osteoporosis
Hard to tell if this is nontraumatic or traumatic she does not recollect any type of trauma however if she has severe osteoporosis the slightest taps could potentially cause injury
PT/OT consult
Osteoporosis
Continue vitamin D
Start Os-Ismael
Will need Prolia/denosumab as outpatient
ESRD on hemodialysis Saturday
Permacatheter appears CDI
Nephrology following
Paroxysmal atrial fibrillation
On amiodarone
Resume Eliquis
Type 2 diabetes
Accu-Cheks sliding scale goal blood glucose
Carb controlled diet
Neurogenic bladder
Continue Flomax
Diabetic neuropathy
Continue gabapentin
HFpEF, NYHA class II
Unable to provide MRA/SGLT2 inhibitors as on dialysis
Monitor volume status and manage with hemodialysis
Read, reviewed, and agree. See same day progress note for additional details. Time spent reviewing records in EMR, med rec, consults, notes, d/w consultants, nursing, family, and CM
--- NOTE | 2025-08-31 14:22 | W.PN.NEPH.PH ---
Today's Communication / Plan
-
HD tomorrow
Assessment/Plan
-
Assessment:
Acute cholecystitis
ESRD on hemodialysis on Saturday, Saturday, Saturday
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
History of left upper extremity steal syndrome
Recent fractures of right 4th through 7th ribs
Constipation
Type 2 diabetes
Diabetic neuropathy
Paroxysmal atrial fibrillation
Chronic HFpEF
Right bundle branch block
Essential hypertension
History of CVA
History of PAD status post bilateral BKA
Chronic anemia with iron deficiency
History of recurrent UTI
History of urinary retention
Hyperlipidemia
Anxiety/depression
Atherosclerotic cardiovascular disease, PAD, CVA history
new right 8-9 rib fx
Plan:
HD tomorrow
she is appealing discharge (concerns regarding how she can manage at home)
-
-
Date of Service: August 31, 2025
CC / HPI / ROS
-
Chief Complaint:
ESRD
History of Present Illness:
BP stable
no fever
WBC 4.2 normal , hb 11.4
Review of Systems:
no CP/SOB
still with pain
no n/v
Labs
-
Labs:
WBC 4.2 10^3/uL (4.8-10.8) L 08/31/25 07:57
RBC 3.60 10^6/uL (4.20-5.40) L 08/31/25 07:57
Hgb 11.4 g/dL (12.0-16.0) L 08/31/25 07:57
Hct 34.7 % (37.0-47.0) L 08/31/25 07:57
Plt Count 150 10^3/uL (130-400) 08/31/25 07:57
Sodium 131 mmol/L (135-145) L 08/31/25 07:57
Potassium 4.0 mmol/L (3.5-5.1) 08/31/25 07:57
Chloride 95 mmol/L (98-107) L 08/31/25 07:57
Carbon Dioxide 27 mmol/L (22-30) 08/31/25 07:57
BUN 13 mg/dl (7-17) 08/31/25 07:57
Creatinine 3.4 mg/dL (0.6-1.0) H 08/31/25 07:57
eGFR 13.78 08/31/25 07:57
Glucose 107 mg/dl (70-99) H 08/31/25 07:57
Calcium 8.3 mg/dl (8.4-10.2) L 08/31/25 07:57
Albumin 3.8 g/dl (3.5-5.0) 08/31/25 07:57
Physical Exam
-
Vital Signs:
Vital Signs
Temp Pulse Resp BP Pulse Ox
97.8 F 70 16 137/67 98
08/31/25 07:30 08/31/25 07:30 08/31/25 07:30 08/31/25 07:30 08/31/25 07:30
Cardiovascular:: Regular rate and rhythm
Respiratory:: Bilateral: Coarse
Lung Excursion:: Normal
Abdomen:: Nontender and Soft
Bowel Sounds:: Normal
Extremity Edema:: None: Bilateral:
[2025-08-31 15:30] VITALS: BP 116/57
--- NOTE | 2025-08-31 15:37 | W.PN.HOSP.TC ---
Addendum entered and electronically signed by Mynor Kramer MD 09/01/25 16:28:
Flank pain secondary to rib fractures subacute to acute noted on CT
Likely related to osteoporosis
Hard to tell if this is nontraumatic or traumatic she does not recollect any type of trauma however if she has severe osteoporosis the slightest taps could potentially cause injury
PT/OT consult
Osteoporosis
Continue vitamin D
Start Os-Ismael
Will need Prolia/denosumab as outpatient
ESRD on hemodialysis Saturday
Permacatheter appears CDI
Nephrology following
Paroxysmal atrial fibrillation
On amiodarone
Resume Eliquis
Type 2 diabetes
Accu-Cheks sliding scale goal blood glucose
Carb controlled diet
Neurogenic bladder
Continue Flomax
Diabetic neuropathy
Continue gabapentin
HFpEF, NYHA class II
Unable to provide MRA/SGLT2 inhibitors as on dialysis
Monitor volume status and manage with hemodialysis
Read, reviewed, and agree. See same day progress note for additional details. Time spent reviewing records in EMR, med rec, consults, notes, d/w consultants, nursing, family, and CM
Original Note:
Today's Communication/Plan
-
PT evaluated her today and
customer services manager consulted for grades 1 thru 6 home teacher visit
Patient was medically cleared to be discharged today but she stated that she is not ready to go home with her pain and her is unable to help her.
discharged canceled today and the piano case and bench assembler referring her to SNF w/ HD center
Spoke over the phone with patient's son and discussed with him the discharge plan
Spoke over the phone with patient PCP and discussed with him the continuity of care plan for her rib fractures pain and osteopenia treatment
Assessment / Plan
Assessment / Plan
Impression -
74-year-old female with PMHx significant for ESRD on hemodialysis, IJ catheter placement, LUE steal syndrome, IDDM, paroxysmal A-fib, chronic HFpEF, hypertension, hyperlipidemia, CVA, PAD s/p BKA, neurogenic bladder, anxiety/depression presents to
the hospital for evaluation of right upper lower quadrant abdominal pain radiating to right scapula.
Diagnosed with cholelithiasis without cholecystitis and is admitted to the hospital.
Assessment and plan -
# Abdominal pain with concern for acute cholecystitis
Likely related to osteoporosis, patient denied fall or trauma to the site
Ultrasound of abdomen consistent with, diffuse gallbladder wall thickening-HIDA scan negative for acute cholecystitis
CT abdomen and pelvis with no acute abnormality.
General Surgery signed off
Currently on Zosyn
CT chest, abdomen and pelvis with oral and IV contrast showed subacute 4-7th ribs and acute fractures 8-9th ribs
No leukocytosis, remained afebrile, hemoglobin stable, platelets stable
On full liquid diet
#Osteoporosis
CT chest, abdomen and pelvis with oral and IV contrast showed acute and subacute ribs fractures
PT/OT evaluation
Continue vitamin D
Start Os-Ismael
Will need Prolia/denosumab as outpatient
PCP has been informed about the fractures and pain
#ESRD on hemodialysis on Saturday, Saturday, Saturday
received HD on 08/30/2025
Nephrology on board for Hemodialysis,
IJ site without any erythema, or edema
#Type 2 diabetes mellitus complicated with neurogenic bladder
On insulin sliding scale
Continue gabapentin for neuropathy
Continue tamsulosin
continue bladder scan protocol-s/p straight cath in ER
Paroxysmal A-fib-
On amiodarone
[id number] score-6
Resume Eliquis.
History of right sided rib fractures 4-7
Continue optimal pain management
Other medical conditions
Chronic HFpEF -
Currently euvolemic, monitor weights
Restrict fluids when diet is resumed.
2 g sodium diet.
Essential hypertension-continue amlodipine
Anxiety/depression-continue sertraline
Hyperlipidemia-continue home dose statin
RBBB
CVA
PAD s/p bilateral BKA
Chronic iron deficiency anemia
DVT prophylaxis-
Heparin subcu
CODE STATUS-DNR.
Anticipated Discharge: Within 24 hours
Subjective/Interval History
-
Date of Service: August 31, 2025
Patient is still has pain in her posterior right side radiating to her scapula. No nausea, no vomiting , no abd pain , no fever, no chills.
Objective Data
-
Labs:
Laboratory Results
08/31/25
07:57
WBC 4.2 L
Hgb 11.4 L
Hct 34.7 L
Plt Count 150
Sodium 131 L
Potassium 4.0
Chloride 95 L
Carbon Dioxide 27
BUN 13
Creatinine 3.4 H
Glucose 107 H
Calcium 8.3 L
Total Bilirubin 0.9
AST 40 H
ALT 64 H
Alkaline Phosphatase 102
Vital Signs:
Vital Signs
Temp Pulse Resp BP Pulse Ox
97.8 F 70 16 137/67 98
08/31/25 07:30 08/31/25 07:30 08/31/25 07:30 08/31/25 07:30 08/31/25 07:30
I&O
08/30/25 08/31/25 09/01/25
06:59 06:59 06:59
Intake Total 1010 / 1010 450 / 450
Balance 1010 / 1010 450 / 450
Review of Systems
-
Abdomen/GI: Reports Abdominal Pain (Right and left flank)
Genitourinary: Reports Flank Pain
Physical Exam
-
General: Well Developed, Well Nourished and Comfortable
HEENT: Moist Mucous Membranes, Anicteric and [place] Conjunctivae
Respiratory: Clear to Auscultation
Cardiac: Regular Rhythm and S1/S2
GI: Soft, Nondistended, Normal Bowel Sounds, Tender (Right upper quadrant and right lower quadrant) and No Hepatosplenomegaly
Musculoskeletal: No Cyanosis, No Edema and Other (Bilateral below-knee amp)
Neuro: Awake and AO x 3
Psych: Calm
[2025-08-31] MEDS: TYLENOL 650 MG PO (17:12)
[2025-08-31] MEDS: ZOFRAN IV (17:13)
[2025-08-31 17:19] LABS: Glucose - Point of Care 126 mg/dl (70-99)
[2025-08-31] MEDS: ZOFRAN 4 MG PO (19:53)
[2025-08-31 21:24] LABS: Glucose - Point of Care 170 mg/dl (70-99)
[2025-08-31 23:25] VITALS: BP 129/63
[2025-09-01 06:00] VITALS: BMI 24.5
[2025-09-01 07:32] VITALS: BP 132/82
[2025-09-01 08:03] LABS: Glucose - Point of Care 145 mg/dl (70-99)
[2025-09-01 08:04] LABS: Hematocrit 32.4 % (37.0-47.0); Hemoglobin 10.4 g/dL (12.0-16.0); Mean Corp Hgb Conc. 32.1 g/dL (33.0-37.0); Mean Corpuscular Volume 94.7 fL (81.0-99.0); Nucleated Red Blood Cells % 0 %; Platelet Count 173 10^3/uL (130-400); Red Cell Dist. Width 13.7 % (11.5-14.5)
[2025-09-01] MEDS: NOVOLOG FLEXPEN-LOW RESISTANCE SC ×2 (08:43→17:50)
[2025-09-01 09:02] LABS: ALT (SGPT) 76 U/L (0-35); AST (SGOT) 48 U/L (14-36); Albumin 3.5 g/dl (3.5-5.0); Alkaline Phosphatase 91 U/L (38-126); Blood Urea Nitrogen 19 mg/dl (7-17); Calcium 8.2 mg/dl (8.4-10.2); Carbon Dioxide 27 mmol/L (22-30); Chloride 97 mmol/L (98-107); Estimated Creatinine Clearance 10 ml/min; Glucose 130 mg/dl (70-99); Potassium 3.6 mmol/L (3.5-5.1); Sodium 131 mmol/L (135-145); Total Protein 6.0 g/dl (6.3-8.2); eGFR 8.89
[2025-09-01] MEDS: MIRALAX PO (09:53)
[2025-09-01] MEDS: TYLENOL 650 MG PO ×2 (09:54→21:24)
[2025-09-01] MEDS: ZOFRAN 4 MG PO (09:55)
[2025-09-01] MEDS: PACERONE 200 MG PO (09:55)
[2025-09-01] MEDS: ZOLOFT 50 MG PO (09:55)
[2025-09-01] MEDS: CRESTOR 40 MG PO (09:55)
[2025-09-01] MEDS: NORVASC 5 MG PO (09:55)
[2025-09-01] MEDS: NEURONTIN 100 MG PO ×2 (09:56→21:19)
[2025-09-01] MEDS: ELIQUIS 5 MG PO ×2 (09:56→21:19)
[2025-09-01] MEDS: FLOMAX 0.4 MG PO (09:56)
--- NOTE | 2025-09-01 11:03 | CM ---
Addendum entered by Toño Jaime 09/01/25 16:07:
Hep B pending at this time. Per [facility], [facility] does not have an updated Hep B result, last one was from June and need one from within the last 30 days. Dialysis began late today, closer to 4pm.
Updated [facility] on potential d/c tomorrow if Hep B results are back
Original Note:
Chart reviewed. SNF referrals reviewed, [facility] does not have any bed availability, [facility] accepted. Spoke w/ [facility], requesting clinicals to send to dialysis center, including Hep B surface antigen, which is
not available. TT hospitalist and PA, confirmed that this will be ordered. Per [facility], she'll reach out to [facility] to see if they have these labs. Other clinicals faxed to [phone].
Updated patient, agreeable to admit to [facility] once she's able. CM was informed patient is scheduled to receive HD today at 3pm this afternoon.
[facility]
Report: [phone]

Plan: D/c to [facility] SNF
[2025-09-01 12:02] LABS: Glucose - Point of Care 212 mg/dl (70-99)
[2025-09-01] MEDS: NOVOLOG FLEXPEN-LOW RESISTANCE 2 UNITS SC (13:04)
[2025-09-01] MEDS: ANTIFUNGAL CLEAR 1 APPLIC TOPICAL ×2 (13:09→21:20)
[2025-09-01] MEDS: LIDOCAINE 4% PATCH 1 PATCH TOPICAL (14:26)
[2025-09-01 15:35] VITALS: BP 99/54
[2025-09-01] MEDS: FLEXBUMIN 25% FOR HEMODIALYSIS 12.5 GRAMS IV ×2 (16:40→18:20)
[2025-09-01] MEDS: MANNITOL 25% 12.5 GRAMS IV ×2 (16:45→18:23)
--- NOTE | 2025-09-01 16:58 | W.PN.NEPH.HD ---
Assessment
-
pt seen during HD
vitals stable
Bp stable
UF as toelrates
CVC functions fine
pain control
Progress Note - Hemodialysis
-
Date of Service: September 01, 2025
Duration: 30 minutes and 3 hours
Potassium Bath: 3
Calcium Bath: 2.5
Opti-Dialyzer: 160
Ultrafiltration: Other (1.5-2kg)
Blood Flow: 400
Dialysate Flow: 600
Heparin: no
EPO: no
[2025-09-01 17:11] LABS: Glucose - Point of Care 134 mg/dl (70-99)
--- NOTE | 2025-09-01 18:41 | W.PN.HOSP.TC ---
Today's Communication/Plan
-
Patient has HD today
She is medically cleared to be discharge but [facility] required Hep B surface antigen test to be done before her transfer
Assessment / Plan
Assessment / Plan
Impression -
74-year-old female with PMHx significant for ESRD on hemodialysis, IJ catheter placement, LUE steal syndrome, IDDM, paroxysmal A-fib, chronic HFpEF, hypertension, hyperlipidemia, CVA, PAD s/p BKA, neurogenic bladder, anxiety/depression presents to
the hospital for evaluation of right upper lower quadrant abdominal pain radiating to right scapula.
Diagnosed with cholelithiasis without cholecystitis and is admitted to the hospital.
Assessment and plan -
# Abdominal pain with concern for acute cholecystitis
Likely related to osteoporosis, patient denied fall or trauma to the site
Ultrasound of abdomen consistent with, diffuse gallbladder wall thickening-HIDA scan negative for acute cholecystitis
CT abdomen and pelvis with no acute abnormality.
General Surgery signed off
Currently on Zosyn
CT chest, abdomen and pelvis with oral and IV contrast showed subacute 4-7th ribs and acute fractures 8-9th ribs
No leukocytosis, remained afebrile, hemoglobin stable, platelets stable
On full liquid diet
#Osteoporosis
CT chest, abdomen and pelvis with oral and IV contrast showed acute and subacute ribs fractures
PT/OT evaluation
Continue vitamin D
Start Os-Ismael
Will need Prolia/denosumab as outpatient
PCP has been informed about the fractures and pain
#ESRD on hemodialysis on Saturday, Saturday, Saturday
received HD on 08/30/2025, 09/01/2025
Nephrology on board for Hemodialysis,
IJ site without any erythema, or edema
#Type 2 diabetes mellitus complicated with neurogenic bladder
On insulin sliding scale
Continue gabapentin for neuropathy
Continue tamsulosin
continue bladder scan protocol-s/p straight cath in ER
Paroxysmal A-fib-
On amiodarone
[id number] score-6
Resume Eliquis.
History of right sided rib fractures 4-7
Continue optimal pain management
Other medical conditions
Chronic HFpEF -
Currently euvolemic, monitor weights
Restrict fluids when diet is resumed.
2 g sodium diet.
Essential hypertension-continue amlodipine
Anxiety/depression-continue sertraline
Hyperlipidemia-continue home dose statin
RBBB
CVA
PAD s/p bilateral BKA
Chronic iron deficiency anemia
DVT prophylaxis-
Heparin subcu
CODE STATUS-DNR.
Anticipated Discharge: Within 24 hours
Subjective/Interval History
-
Date of Service: September 01, 2025
Patient has retching before having her breakfast today. She still have pain in her right upper quadrant pain radiated to the scapula. Denied blood in stool or hematuria. No chest pain or shortness of breath.
Objective Data
-
Labs:
Laboratory Results
09/01/25
06:55
WBC 4.4 L
Hgb 10.4 L
Hct 32.4 L
Plt Count 173
Sodium 131 L
Potassium 3.6
Chloride 97 L
Carbon Dioxide 27
BUN 19 H
Creatinine 4.9 H*
Glucose 130 H
Calcium 8.2 L
Total Bilirubin 0.7
AST 48 H
ALT 76 H
Alkaline Phosphatase 91
Vital Signs:
Vital Signs
Temp Pulse Resp BP Pulse Ox
98.1 F 62 18 99/54 98
09/01/25 15:35 09/01/25 15:35 09/01/25 15:35 09/01/25 15:35 09/01/25 15:35
I&O
08/31/25 09/01/25 09/02/25
06:59 06:59 06:59
Intake Total 450 / 450 480 / 480
Balance 450 / 450 480 / 480
Review of Systems
-
History Source: Patient
Respiratory: Reports No Symptoms
Cardiac: Reports No Symptoms
Abdomen/GI: Reports Abdominal Pain (Right flank pain)
Genitourinary: Reports No Symptoms and Flank Pain
Physical Exam
-
General: Well Developed, Well Nourished and Comfortable
HEENT: Moist Mucous Membranes, Anicteric and [place] Conjunctivae
Respiratory: Clear to Auscultation
Cardiac: Regular Rhythm and S1/S2
GI: Soft, Nondistended, Normal Bowel Sounds, Tender (Right upper quadrant and right lower quadrant) and No Hepatosplenomegaly
Musculoskeletal: No Cyanosis, No Edema and Other (Bilateral below-knee amp)
Neuro: Awake and AO x 3
Psych: Calm
[2025-09-01] MEDS: HEPARIN 4600 UNITS INTRACATH (20:05)
[2025-09-01 20:15] LABS: Glucose - Point of Care 136 mg/dl (70-99)
[2025-09-01 21:14] LABS: Glucose - Point of Care 141 mg/dl (70-99)
[2025-09-01] MEDS: VITAMIN D3 (cholecalciferol) 25 MCG PO (21:19)
[2025-09-01] MEDS: REMOVE LIDOCAINE PATCH 1 PATCH REMOVE (23:15)
[2025-09-01] MEDS: DILAUDID 0.5 MG IV (23:16)
[2025-09-01 23:44] VITALS: BP 136/60
[2025-09-02 06:00] VITALS: BMI 24.1
[2025-09-02 07:42] LABS: Glucose - Point of Care 243 mg/dl (70-99)
[2025-09-02 07:45] VITALS: BP 126/63
[2025-09-02] MEDS: LIDOCAINE 4% PATCH 1 PATCH TOPICAL (07:45)
[2025-09-02] MEDS: NORVASC 5 MG PO (07:45)
[2025-09-02] MEDS: ZOLOFT 50 MG PO (07:45)
[2025-09-02] MEDS: CRESTOR 40 MG PO (07:45)
[2025-09-02] MEDS: FLOMAX 0.4 MG PO (07:46)
[2025-09-02] MEDS: MIRALAX PO (07:46)
[2025-09-02] MEDS: ELIQUIS 5 MG PO (07:46)
[2025-09-02] MEDS: NEURONTIN 100 MG PO (07:46)
[2025-09-02] MEDS: TYLENOL 650 MG PO (07:46)
[2025-09-02] MEDS: ANTIFUNGAL CLEAR 1 APPLIC TOPICAL (07:46)
[2025-09-02] MEDS: PACERONE 200 MG PO (07:46)
[2025-09-02] MEDS: NOVOLOG FLEXPEN-LOW RESISTANCE 2 UNITS SC ×2 (07:47→13:13)
[2025-09-02 08:12] LABS: Hematocrit 32.7 % (37.0-47.0); Hemoglobin 10.5 g/dL (12.0-16.0); Mean Corp Hgb Conc. 32.1 g/dL (33.0-37.0); Mean Corpuscular Volume 96.2 fL (81.0-99.0); Nucleated Red Blood Cells % 0 %; Platelet Count 168 10^3/uL (130-400); Red Cell Dist. Width 13.9 % (11.5-14.5)
[2025-09-02 08:45] LABS: ALT (SGPT) 62 U/L (0-35); AST (SGOT) 35 U/L (14-36); Albumin 4.2 g/dl (3.5-5.0); Alkaline Phosphatase 93 U/L (38-126); Blood Urea Nitrogen 12 mg/dl (7-17); Calcium 8.6 mg/dl (8.4-10.2); Carbon Dioxide 30 mmol/L (22-30); Chloride 97 mmol/L (98-107); Estimated Creatinine Clearance 15 ml/min; Glucose 198 mg/dl (70-99); Potassium 3.1 mmol/L (3.5-5.1); Sodium 134 mmol/L (135-145); Total Protein 6.6 g/dl (6.3-8.2); eGFR 14.29
[2025-09-02 11:41] LABS: Glucose - Point of Care 208 mg/dl (70-99)
--- NOTE | 2025-09-02 12:43 | W.PN.UPDATE ---
Update Note
Progress Note Update
Flank pain secondary to rib fractures subacute to acute noted on CT
Likely related to osteoporosis
Hard to tell if this is nontraumatic or traumatic she does not recollect any type of trauma however if she has severe osteoporosis the slightest taps could potentially cause injury
PT/OT consult
Osteoporosis
Continue vitamin D
Start Os-Ismael
Will need Prolia/denosumab as outpatient
ESRD on hemodialysis Saturday
Permacatheter appears CDI
Nephrology following
Paroxysmal atrial fibrillation
On amiodarone
Resume Eliquis
Type 2 diabetes
Accu-Cheks sliding scale goal blood glucose
Carb controlled diet
Neurogenic bladder
Continue Flomax
Diabetic neuropathy
Continue gabapentin
HFpEF, NYHA class II
Unable to provide MRA/SGLT2 inhibitors as on dialysis
Monitor volume status and manage with hemodialysis
For SNF when able to use them. SNF has requested hepatitis B antigen. They will not accept hepatitis B antibody which apparently is industry standard per hemodialysis nurse
Read, reviewed, and agree. See same day progress note for additional details. Time spent reviewing records in EMR, med rec, consults, notes, d/w consultants, nursing, family, and CM
--- NOTE | 2025-09-02 12:58 | CM ---
All clinicals faxed to [facility] including flow sheets, and Hep B antibody results, and patient has been accepted at [facility] today, patient to have HD tomorrow, patient will need ambulance transport set up today.
[facility]
Report: [phone]

Plan: D/c to [facility] today by ambulance
--- NOTE | 2025-09-02 13:07 | PN.CDI ---
CDI
- -
CDI:
Physician Documentation Request
Admit Date: 08/28/25 15:03
Dear Doctor Keny,
Patient admitted for abdominal pain.
Laboratory Tests
08/30/25 08/31/25 09/01/25
07:00 07:57 06:55
Sodium 134 L 131 L 131 L
09/02/25
07:15
Sodium 134 L
Based on the above, could you clarify in the progress notes, the appropriate diagnosis, if significant, that supports the above abnormalities and additional evaluation, monitoring and/or treatment rendered:
Hyponatremia
Abnormal lab value insignificant
Other
Use of terms such as suspected, likely, concern for, or probable (associated with a specific diagnosis that is being evaluated, monitored, or treated as if it exists) are acceptable and can be coded in the inpatient setting, when documented at the
time of discharge.
Thank you,
Arin Bunn RN, BSN
CDI Specialist
Available via [place] text
Please use your independent medical judgment in providing your response.
--- NOTE | 2025-09-02 14:57 | W.PN.HOSP.TC ---
Today's Communication/Plan
-
Patient planned to be discharged today to SNF with HD center.
one lidocaine patch appltied to the pain site
Assessment / Plan
Assessment / Plan
Impression -
74-year-old female with PMHx significant for ESRD on hemodialysis, IJ catheter placement, LUE steal syndrome, IDDM, paroxysmal A-fib, chronic HFpEF, hypertension, hyperlipidemia, CVA, PAD s/p BKA, neurogenic bladder, anxiety/depression presents to
the hospital for evaluation of right upper lower quadrant abdominal pain radiating to right scapula.
Diagnosed with cholelithiasis without cholecystitis and is admitted to the hospital.
Assessment and plan -
# Abdominal pain with concern for acute cholecystitis
Likely related to osteoporosis, patient denied fall or trauma to the site
Ultrasound of abdomen consistent with, diffuse gallbladder wall thickening-HIDA scan negative for acute cholecystitis
CT abdomen and pelvis with no acute abnormality.
General Surgery signed off
Currently on Zosyn
CT chest, abdomen and pelvis with oral and IV contrast showed subacute 4-7th ribs and acute fractures 8-9th ribs
No leukocytosis, remained afebrile, hemoglobin stable, platelets stable
On full liquid diet
#Hyponatremia
Likely secondary to low oral intake and nausea
#Osteoporosis
CT chest, abdomen and pelvis with oral and IV contrast showed acute and subacute ribs fractures
PT/OT evaluation
Continue vitamin D
Start Os-Ismael
Will need Prolia/denosumab as outpatient
PCP has been informed about the fractures and pain
#ESRD on hemodialysis on Saturday, Saturday, Saturday
received HD on 08/30/2025, 09/01/2025
Nephrology on board for Hemodialysis,
IJ site without any erythema, or edema
#Type 2 diabetes mellitus complicated with neurogenic bladder
On insulin sliding scale
Continue gabapentin for neuropathy
Continue tamsulosin
continue bladder scan protocol-s/p straight cath in ER
Paroxysmal A-fib-
On amiodarone
[id number] score-6
Resume Eliquis.
History of right sided rib fractures 4-7
Continue optimal pain management
Other medical conditions
Chronic HFpEF -
Currently euvolemic, monitor weights
Restrict fluids when diet is resumed.
2 g sodium diet.
Essential hypertension-continue amlodipine
Anxiety/depression-continue sertraline
Hyperlipidemia-continue home dose statin
RBBB
CVA
PAD s/p bilateral BKA
Chronic iron deficiency anemia
DVT prophylaxis-
Heparin subcu
CODE STATUS-DNR.
Anticipated Discharge: Today
Subjective/Interval History
-
Date of Service: September 02, 2025
Patient still have nausea and pain in her right posterior of her back. She has frequent bowel movement since she took the contrast. Patient did not look at stool if it has blood in it or not. Denied abd pain, vomiting, fever, chills.
Objective Data
-
Labs:
Laboratory Results
09/02/25
07:15
WBC 3.7 L
Hgb 10.5 L
Hct 32.7 L
Plt Count 168
Sodium 134 L
Potassium 3.1 L
Chloride 97 L
Carbon Dioxide 30
BUN 12
Creatinine 3.3 H
Glucose 198 H
Calcium 8.6
Total Bilirubin 0.8
AST 35
ALT 62 H
Alkaline Phosphatase 93
Vital Signs:
Vital Signs
Temp Pulse Resp BP Pulse Ox
97.3 F 70 18 126/63 98
09/02/25 07:45 09/02/25 07:45 09/02/25 07:45 09/02/25 07:45 09/02/25 07:45
I&O
09/01/25 09/02/25 09/03/25
06:59 06:59 06:59
Intake Total 480 / 480 1320 / 1320
Balance 480 / 480 1320 / 1320
Review of Systems
-
History Source: Patient
Respiratory: Reports No Symptoms
Cardiac: Reports No Symptoms
Abdomen/GI: Reports Abdominal Pain (Right flank pain)
Genitourinary: Reports No Symptoms and Flank Pain
Physical Exam
-
General: Well Developed and Comfortable
HEENT: Moist Mucous Membranes, Anicteric and [place] Conjunctivae
Respiratory: Clear to Auscultation
Cardiac: Regular Rhythm and S1/S2
GI: Soft, Nondistended, Normal Bowel Sounds, Tender (Right upper quadrant and right lower quadrant) and No Hepatosplenomegaly
Musculoskeletal: No Cyanosis, No Edema and Other (Bilateral below-knee amp)
Neuro: Awake and AO x 3
Psych: Calm
[2025-09-02 15:17] VITALS: BP 134/66
[2025-09-02 18:52] LABS: Hepatitis B Surface Antigen Negative (Negative)
--- NOTE | 2025-09-03 20:37 | W.DCSUMMARY ---
Discharge Summary
Discharge Data
Date of Admission: 08/28/25
Date of Discharge: 09/02/25
-
Pending Results: No
Additional Pending Results:
Discharging Physician:
Aki Arriaga
Disposition:
SNF
Primary Care Physician:
Adolfo Cruz
Principal Discharge Diagnosis:
Subacute right sided rib fractures in rib 4th, 5th, 6th, and 7th
Acute right rib fractures in rib 8th and 9th
Chronic Discharge Diagnosis:
ESRD on hemodialysis, type 2 diabetes, paroxysmal atrial fibrillation on Eliquis, HFpEF, hypertension
Hospital Course
74-year-old female past medical history of ESRD on hemodialysis, type 2 diabetes, paroxysmal atrial fibrillation on Eliquis, HFpEF, hypertension,s/p bilateral BKA. Presenting with abdominal pain starting in her right back radiating around to the
right upper quadrant as well as the right shoulder for the past week. She has been nauseous with some dry heaving and mucus production. Denies fevers or chills. She denies diarrhea but has been constipated since starting dialysis. Her last bowel
movement 2 days ago before the admission. She has been taking MiraLAX. 6 weeks ago she was told that she had rib fractures and was taking Tylenol for pain at home. The pain had mostly improved. She recently was treated for urinary tract infection.
She denies any urinary symptoms at this time. Her WBC wnl.
Her labs have not been consistent with infection. CT of the abd showed cholecystitis and mild diffuse gallbladder wall thickening therefore, HIDA scan was done and ruled out Cholecystitis. CT scan of abd and pelvis was done with IV contrast revealed
subacute appearing posterior right-sided fourth, fifth, sixth and seventh rib fractures. There are marked acute appearing eighth and ninth rib fractures posteriorly . It was unclear if that was related to the trauma as the patient did not recall any
trauma but mentioned that she rely on her right side more than the left side. She received pain medication during hospitalization and hemodialysis. Her electrolyses have been repleted accordingly. Patient worked with the child welfare caseworker during the
hospitalization for SNF referral.
Patient advices to follow up with her PCP for continuity of care and for assessment for osteoporosis and the benefits of use Prolia / denosumab injections.
Important Radiological Findings:
Chest Xray on 08/28/2025
IMPRESSION:
No acute cardiopulmonary process.
CT Abd/pel Without Iv Or Oral 08/28/2025
IMPRESSION:
1. No significant acute abnormality identified in the abdomen or pelvis, within the limits of unenhanced CT, as described above.
2. Mild diffuse colonic stool burden may reflect constipation.
US Abdomen Complete/Upper 08/28/2025
IMPRESSION:
1. CHOLELITHIASIS and mild diffuse gallbladder wall thickening.
2. No sonographic evidence for biliary obstruction.
3. Mild diffuse liver disease.
4. Moderate chronic bilateral renal disease.
5. Severe calcific atherosclerotic disease.
NM Hepatobiliary (hida) 08/29/2025
IMPRESSION:
No scintigraphic evidence of cystic duct or common bile duct obstruction.
CT Chest/abd/pel W Iv Cont 08/30/2025
FINDINGS:
CHEST:
There are no abnormal pleural or parenchymal pulmonary masses.
There is no significant parenchymal airspace disease.
There is no pleural effusion.
There are no abnormal mediastinal masses.
There is no hilar lymphadenopathy.
There is no mediastinal lymphadenopathy.
There is no axillary lymphadenopathy.
There are subacute appearing posterior right-sided fourth, fifth, sixth and seventh rib fractures. There are marked acute appearing eighth and ninth rib fractures posteriorly.
Abdomen and pelvis: The liver, spleen, and pancreas are unremarkable. There are many tiny gallstones. The adrenal glands and kidneys are unremarkable. The abdominal aorta is normal caliber. There is severe atherosclerotic vascular disease. No
significant lymphadenopathy is noted. Bowel loops are normal caliber. The terminal ileum is within normal limits. The appendix is within normal limits.
There is asymmetric wall thickening of the left wall of the rectum seen best on image 67 series 301. It measures 1.0 x 2.7 cm. This may be due to a fold. This is approximately 10 cm from the anus. There is mild circumferential wall thickening
throughout the remainder the rectum. There is no pneumatosis. There is no perirectal stranding. There is moderate fecal material in the rectum.
Oral contrast has reached the sigmoid colon.
There is a small hiatal hernia.
No free fluid is noted. The urinary bladder is mildly distended. There is mild diffuse bladder wall thickening.
Osseous structures of the abdomen and pelvis show mild degenerative disease. See chest portion for evaluation of the ribs.
Discharge Plan
-
Patient Disposition: [facility]/SNF
Discharge Diagnosis/Procedures: Subacute right sided rib fractures in rib 4th, 5th, 6th, and 7th
Acute right rib fractures in rib 8th and 9th
Condition: Fair
Diet: Diabetic, Carb Controlled
Activity: As tolerated
Driving Restrictions: No driving
Bathing Restrictions: OK to Shower
Other Services: PT and OT
Activity Restrictions/Additional Instructions:
Please follow up with your PCP for fracture ribs.
Referrals:
Jose Velásquez MD [Active, Gastroenterology] - in one to two weeks
Referral Note: Please call this number to schedule an appointment with gastroenterology doctor [phone] for colonoscopy. Or follow up with your own [facility] Coordinator
Adolfo Cruz DO [Family Provider, Family Practice] - in less than 1 week
Jo Ann Box MD [Active, Nephrology] - in one week
Additional Discharge Medication Instructions: Acetaminophen 650 mg each 8 hours as needed for pain
Vitamin D3 200 unit tablet one tablet daily
Lidocaine 5% adhesive patch topical one patch daily for pain
Prescriptions:
New
lidocaine [Lidoderm] 5 % adhesive patch,medicated
1 patch topical DAILY Qty: 30 0RF
acetaminophen 650 mg tablet extended release
650 mg PO Q8H PRN (Reason: Pain) Qty: 30 0RF
calcium carbonate-vitamin D3 600 mg-5 mcg (200 unit) tablet
1 tab PO DAILY 30 Days Qty: 30 0RF
Continued
gabapentin 100 MG capsule
100 mg PO BID
amiodarone [Pacerone] 200 MG tablet
200 mg PO DAILY
cholecalciferol (vitamin D3) [Vitamin D3] 25 mcg (1,000 unit) Capsule
25 mcg PO MOWEFR
Eliquis 5 mg Tablet
5 mg PO BID
Probiotic 3 billion cell Capsule
3,000 mmu cells PO DAILY
polyethylene glycol 3350 [HealthyLax] 17 gram powder in packet
17 g PO DAILY
tamsulosin 0.4 mg capsule
0.4 mg PO DAILY
rosuvastatin 40 mg Tablet
40 mg PO DAILY
amlodipine [Norvasc] 5 mg tablet
5 mg PO DAILY Qty: 30 0RF
insulin aspart U-100 [Novolog FlexPen U-100 Insulin] 100 unit/mL (3 mL) Insulin Pen
1 sliding scale dose SC DIRECTED
cefdinir 300 mg capsule
300 mg PO DAILY
Patient Comments:
10 day course that ended on 08/26/25
sertraline 50 MG tablet
50 mg PO DAILY 0RF
Discharge Orders:
Discharge Patient (As Directed); Ordered 09/02/25
Ordered By: Drew Connell
Discharge Date and Time
Discharge Date/Time: 09/02/25 16:51
Print Language: BULGARIAN
== END 2025-09-02 16:51 | DRG 542 ==
LOC: 4 WEST ACU 15:03
PROVIDERS: Physician Assistant; Specialist; Specialist Research Data Abstracter/Coder; Student in an Organized Health Care Education/Training Program; ADMITTING PHYSICIAN Hospitalist; ATTENDING PHYSICIAN Hospitalist; CONSULT PHYSICIAN Internal Medicine; CONSULT PHYSICIAN Surgery; EMERGENCY PHYSICIAN Emergency Medicine; FAMILY PHYSICIAN Family Medicine
PROC: 5A1D70Z Performance of Urinary Filtration, Intermittent, Less than 6 Hours Per Day (ICD-10-PCS; 2025-08-30)
DX: M80.8AXA Other osteoporosis with current pathological fracture, other site, initial encounter for fracture (principal); N18.6 End stage renal disease; K80.00 Calculus of gallbladder with acute cholecystitis without obstruction; I50.32 Chronic diastolic (congestive) heart failure; I13.2 Hypertensive heart and chronic kidney disease with heart failure and with stage 5 chronic kidney disease, or end stage renal disease; E87.1 Hypo-osmolality and hyponatremia; Z99.2 Dependence on renal dialysis; E11.40 Type 2 diabetes mellitus with diabetic neuropathy, unspecified; I48.0 Paroxysmal atrial fibrillation; F32.A Depression, unspecified; F41.9 Anxiety disorder, unspecified; Z66 Do not resuscitate; Z79.01 Long term (current) use of anticoagulants; K59.09 Other constipation; Z79.4 Long term (current) use of insulin; Z79.899 Other long term (current) drug therapy; Z89.511 Acquired absence of right leg below knee; Z89.512 Acquired absence of left leg below knee
CPT/HCPCS: 51701; 71046; 71260; 74176; 74177; 76700; 78226; 80048; 80053; 81003; 81015; 82962; 83036; 83690; 85025; 87070; 87340; 93005; 96361; 96365; 96375; 97163; 99285; A9537; G0257; P9047; Q9967

== ENCOUNTER 2025-09-27 09:14 | Inpatient (IN) | payer MEDICARE, OTHER, SELFPAY ==
[2025-09-25] VITALS (8 sets, daily range): BP systolic 129–183; BP diastolic 63–95
--- NOTE | 2025-09-25 11:13 | ED.GENMED ---
History of Present Illness
<Sara Ambrosio PA-C - Last Filed: 09/25/25 16:56>
General
Chief Complaint: Back Pain
Source: patient, ambulance crew and previous hospital records
Exam Limitations: none
Time Seen by Provider: 09/25/25 10:30
History of Present Illness
History of Present Illness:
Patient is a 74-year-old female with past medical history of end-stage renal disease on hemodialysis Mondays, Wednesdays, Fridays, type 2 diabetes status post bilateral BKA, paroxysmal atrial fibrillation currently anticoagulated on Eliquis, heart
failure, hypertension, who presents to the emergency department from home via EMS for evaluation of worsening right flank pain associated with nausea and constipation. Patient was admitted to [facility] recently and discharged on
09/03/2025. At that time, they initially thought the patient had acute cholecystitis however HIDA scan was normal and that was ruled out. They also noted that the patient had multiple right-sided rib fractures which were likely the cause of her
pain. They were hesitant to give her opioids as they were concerned about her chronic constipation. Instead, she was given tramadol which did not provide her with relief. Patient reports that she stopped taking the tramadol a few days ago because
she did become constipated. She reports that she switched to Tylenol but her right flank pain is severe and very poorly controlled. She reports that she has also had nausea and vomiting for the past few days. She reports that she has been unable
to keep down very little for the past 6 days. She reports that her last bowel movement was 6 days ago. She reports that she did pass a small bit of flatus this morning. Patient states that she has been taking MiraLAX daily without improvement in
her symptoms. Patient reports that she was discharged to a SNF after her last admission but they did not have the resources to help her and it seemed to make her symptoms worse. She reports that since arriving home a week ago, her symptoms have
also worsened. She reports that she lives with her who is also sick and does not have any other support at home.
Past History
<Sara Ambrosio PA-C - Last Filed: 09/25/25 16:56>
Past History
ED Past Medical History: Arrthythmia (Atrial fib), CAD, CHF, CVA (X 2), GERD, HTN, Hypercholesterolemia, IDDM, ID, Renal failure (Will be starting dialysis), Psychiatric (anxiety, depression) and Other (Gastritis with intractiable N/V, Rectal
abscess, Colitis, Indwelling vasquez, UTI, Cellulitis, )
ED Past Surgical History: Cardiac (Angioplasty and stenting X2), , Gynecological and Other (Bilateral BK amputation, Prior-partial right foot amputation)
Patient has exhibited threatening behavior?: No
PSI?: No
Social History
Tobacco: Non-smoker
Alcohol: None
Drug: None
Personal:
Living: with family
Employment: Disabled
Family History
Family History: Hypertension
Review of Systems
<Sara Ambrosio PA-C - Last Filed: 09/25/25 16:56>
Review of Systems
All Other Systems: Not applicable
Constitutional: Reports no symptoms
EENT: Reports no symptoms
Respiratory: Reports no symptoms
Cardiac: Reports no symptoms
ABD/GI: Reports nausea, vomiting and constipated
: Reports flank pain
Musculoskeletal: Reports no symptoms
Skin: Reports no symptoms
Neurological: Reports no symptoms
Endocrine: Reports no symptoms
Hematologic/Lymphatic: Reports no symptoms
Psychiatric: Reports no symptoms
Phy Exam
<JEANNETTE Lee Last Filed: 09/25/25 16:56>
General Physical Exam
General Presentation: well appearing and no apparent distress
General Skin: warm and dry
General Habitus: normal
General Mental: alert
General Hydration: appears well hydrated
ENT Exam
ENT Exam: EOMI
Cardiovascular Exam
Cardiovascular Exam: regular rate/rhythm, no edema, no murmur and normal peripheral pulses
Pulmonary Exam
Pulmonary Exam: lungs clear, no respiratory distress, no rales, no crackles, no rhonchi, no stridor, no wheezing and no cough
Gastrointestinal Exam
Gastrointestinal Exam: normal bowel sounds, soft, no organomegaly, no pulsatile mass, non distended and tender (right flank)
Neurological Exam
Neurological Exam: alert, oriented x3, no motor deficits and speech normal
Musculoskeletal Exam
Musculoskeletal Exam: BKA (bilateral)
Skin Exam
Skin Exam: normal color, warm/dry, no rash and no petechia
Psychiatric Exam
Psychiatric Exam: normal mood/affect
Course
<Sara Ambrosio PA-C - Last Filed: 09/25/25 16:56>
Orders/Labs/Results
Orders:
Orders
09/25/25 11:11
Morphine Sulfate 4 mg IV NOW STA
Ondansetron Injectable [Zofran] 4 mg IV NOW STA
09/25/25 11:12
CT Abd/pelvis W Iv Cont Urgent
Comment:
Reason For Exam: right flank pain, hx of multiple recent rib fx
09/25/25 11:13
0.9% Sodium Chloride 500 ml [Nss] 500 ml IV BOLUS
09/25/25 11:19
Basic Metabolic Panel Urgent
Complete Blood Count/With Diff Urgent
Lipase Urgent
Comment: ADD ON
09/25/25 11:38
Add On- LAB Urgent
Tests Added?: lipase level
09/25/25 11:39
Add On- LAB Urgent
Tests Added?: hepatic function panel
09/25/25 12:59
Urinalysis Urgent
09/25/25 16:03
Admit/Transfer Patient As Directed
Co-Sign Provider:
Level of Care: Observation services
Assign to:: Medical/Surgical
Physician / Group: christy
Diagnosis: right back pain, constipation
Code Status As Directed
Resuscitation Status: Do not resuscitate
Reached after discussion with pt or family/Healthcare POA: Yes
PRN Pain Medication Management As Directed
May give lesser potent ordered pain med per pt: Yes
preference::
Protocol:: Medication orders for pain may be administered in a
manner that supports deferring to patient preference
when the pt is:
- Requesting an ordered lesser potent pain medication.
Least to most potent pain medications are defined
as: acetaminophen < NSAID < tramadol < opioids
(morphine, oxycodone, hydromorphone).
- Requesting a lesser dose of the same medication IF
ORDERED.
- Requesting a less intrusive route of administration
if both routes are prescribed by the provider (PO <
IV).
09/25/25 16:04
DNR Bracelet Application ONCE
Abnormal Lab Results
09/25/25
11:19
WBC 3.7 L 10^3/uL
(4.8-10.8)
RBC 3.90 L 10^6/uL
(4.20-5.40)
Hgb 11.9 L g/dL
(12.0-16.0)
MCHC 31.8 L g/dL
(33.0-37.0)
MPV 10.6 H fL
(7.4-10.4)
Absolute Lymphs (auto) 0.8 L 10^3/uL
(1.2-3.4)
Monocytes % 9.4 H %
(1.7-9.3)
Sodium 131 L mmol/L
(135-145)
Chloride 94 L mmol/L
(98-107)
Creatinine 2.9 H mg/dL
(0.6-1.0)
Glucose 110 H mg/dl
(70-99)
09/25/25 11:19
09/25/25 11:19
Vital Signs
Initial and Last Documented VS:
Initial Vital Signs
Temp Pulse Resp BP Pulse Ox
98.3 F 77 16 158/84 98
09/25/25 10:32 09/25/25 10:32 09/25/25 10:32 09/25/25 10:32 09/25/25 10:32
Last Documented Vital Signs
Temp Pulse Resp BP Pulse Ox
98.3 F 77 16 148/72 96
09/25/25 10:32 09/25/25 10:32 09/25/25 10:32 09/25/25 13:52 09/25/25 12:00
<Sarah Pickering, DO - Last Filed: 09/25/25 15:32>
Orders/Labs/Results
Orders:
Orders
09/25/25 11:11
Morphine Sulfate 4 mg IV NOW STA
Ondansetron Injectable [Zofran] 4 mg IV NOW STA
09/25/25 11:12
CT Abd/pelvis W Iv Cont Urgent
Comment:
Reason For Exam: right flank pain, hx of multiple recent rib fx
09/25/25 11:13
0.9% Sodium Chloride 500 ml [Nss] 500 ml IV BOLUS
09/25/25 11:19
Basic Metabolic Panel Urgent
Complete Blood Count/With Diff Urgent
Lipase Urgent
Comment: ADD ON
09/25/25 11:38
Add On- LAB Urgent
Tests Added?: lipase level
09/25/25 11:39
Add On- LAB Urgent
Tests Added?: hepatic function panel
09/25/25 12:59
Urinalysis Urgent
09/25/25 16:03
Admit/Transfer Patient As Directed
Co-Sign Provider:
Level of Care: Observation services
Assign to:: Medical/Surgical
Physician / Group: christy
Diagnosis: right back pain, constipation
Code Status As Directed
Resuscitation Status: Do not resuscitate
Reached after discussion with pt or family/Healthcare POA: Yes
PRN Pain Medication Management As Directed
May give lesser potent ordered pain med per pt: Yes
preference::
Protocol:: Medication orders for pain may be administered in a
manner that supports deferring to patient preference
when the pt is:
- Requesting an ordered lesser potent pain medication.
Least to most potent pain medications are defined
as: acetaminophen < NSAID < tramadol < opioids
(morphine, oxycodone, hydromorphone).
- Requesting a lesser dose of the same medication IF
ORDERED.
- Requesting a less intrusive route of administration
if both routes are prescribed by the provider (PO <
IV).
09/25/25 16:04
DNR Bracelet Application ONCE
Abnormal Lab Results
09/25/25
11:19
WBC 3.7 L 10^3/uL
(4.8-10.8)
RBC 3.90 L 10^6/uL
(4.20-5.40)
Hgb 11.9 L g/dL
(12.0-16.0)
MCHC 31.8 L g/dL
(33.0-37.0)
MPV 10.6 H fL
(7.4-10.4)
Absolute Lymphs (auto) 0.8 L 10^3/uL
(1.2-3.4)
Monocytes % 9.4 H %
(1.7-9.3)
Sodium 131 L mmol/L
(135-145)
Chloride 94 L mmol/L
(98-107)
Creatinine 2.9 H mg/dL
(0.6-1.0)
Glucose 110 H mg/dl
(70-99)
09/25/25 11:19
09/25/25 11:19
Vital Signs
Initial and Last Documented VS:
Initial Vital Signs
Temp Pulse Resp BP Pulse Ox
98.3 F 77 16 158/84 98
09/25/25 10:32 09/25/25 10:32 09/25/25 10:32 09/25/25 10:32 09/25/25 10:32
Last Documented Vital Signs
Temp Pulse Resp BP Pulse Ox
98.3 F 77 16 148/72 96
09/25/25 10:32 09/25/25 10:32 09/25/25 10:32 09/25/25 13:52 09/25/25 12:00
<Sara Ambrosio PA-C - Last Filed: 09/25/25 16:56>
*Pulse Oximetry
SaO2: 98
Oxygen Mode of Delivery: Room air
Patient hypoxic: no
*Critical Care Note
Total Time (30-74mins, 75-104mins- exclusive of procedures): Not Applicable
<Sara Ambrosio PA-C - Last Filed: 09/25/25 16:56>
Update Note
Update Note:
Patient is a 74-year-old female with extensive past medical history as noted including recent admission for multiple right rib fractures presents to the emergency department for poorly controlled right rib/flank pain as well as recent nausea,
vomiting, and constipation. On arrival, patient is mildly hypertensive, afebrile. On examination, the patient is in no acute distress, she does have tenderness to palpation over the right flank/ribs, no significant abdominal tenderness, no rebound
or guarding. Labs were obtained and are nonactionable. A CT of the pelvis does redemonstrate the patient's known right rib fractures as well as some constipation but no other acute abnormality such as bowel obstruction. The patient reports that
her pain is much improved following the administration of morphine. I spoke with the patient about disposition. Patient essentially lives alone as her has his own medical problems and cannot provide her with any assistance. Her pain is
poorly controlled and her constipation has not improved. Therefore, will admit for additional pain control, a rigorous bowel regimen, as well as likely PT evaluation to determine if the patient requires additional services at home. Patient is
agreeable to this plan. Patient signed out to the hospitalist without patient.
ED Attending Note
<Sara Ambrosio PA-C - Last Filed: 09/25/25 16:56>
-
Portions of this chart may have been created with voice recognition software.� Occasional wrong word or��sound alike� substitutions may have occurred due to the inherent limitations of voice recognition software.
<Sarah Pickering DO - Last Filed: 09/25/25 15:32>
ED Attending Note
Patient seen and examined by attending physician: Yes
I performed the substantive portion of visit, reviewed & personally made and approve the management plan that is documented in note by myself or ANANT.: Yes
I performed a history and physical exam of patient and discussed management with resident, I reviewed resident's note and agree with documented findings and plan of care.: Yes
ED Attending Note:
74-year-old female with complex medical history including ESRD on hemodialysis [facility], diabetes with bilateral BKA, A-fib anticoagulated on Eliquis, CHF, hypertension presenting for worsening right sided pain. Patient recently admitted to the [facility] for right sided pain with acute cholecystitis, however ultimately ruled out. Incidentally was found to have multiple right-sided rib fractures with unknown trauma. Patient was discharged to a facility where she was taking tramadol for
pain, however notes that it was not controlling her pain and became very constipated. She has since been on Tylenol with pain very poorly controlled. She has been trying stool softeners without significant relief of her constipation. Vital signs
on arrival significant for mild hypertension.
On exam, patient is in no acute distress, however tearful, noting pain. Generalized tenderness to the right mid axillary region of the ribs as well as the right side of the abdomen. No significant distention. Notes nausea without vomit. Without
present concern for bowel obstruction. Suspect uncomplicated constipation, likely from her narcotic medication. However, patient was recently discharged to home from her facility where she is having difficulty getting around. Chronic BKA
bilaterally, and does not have anyone at home to care for her. Patient received morphine here which did help control her pain. Labs obtained here are unremarkable and CT without significant change from prior, does show constipation. At this time,
unsafe disposition home, fall risk. Plan for admission for pain control and potential placement as well as bowel regiment
Discharge Plan
Departure
Patient Disposition: Admit
Date of Disposition: 09/25/25
Time of Disposition: 15:50
Presentation/result/management discussed w/ accepting MD/DO: Hospitalist
Patient with high blood pressure during this ER visit?: Yes
Discharge Problem:
Rib pain on right side, Constipation
Interventions
Interventions:
*Risk Screen - Suicide Last Done: 09/25/25 10:32
*General Assessment Last Done: 09/25/25 10:32
*Neglect/Abuse Screening Last Done: 09/25/25 10:32
*ED COVID-19 Vaccine History Last Done: 09/25/25 13:56
*ED Influenza Vaccine History Last Done: 09/25/25 13:56
ED-Musculoskeletal Assessment Last Done: 09/25/25 13:56
[2025-09-25 11:36] LABS: Hematocrit 37.4 % (37.0-47.0); Hemoglobin 11.9 g/dL (12.0-16.0); Mean Corp Hgb Conc. 31.8 g/dL (33.0-37.0); Mean Corpuscular Volume 95.9 fL (81.0-99.0); Nucleated Red Blood Cells % 0 %; Platelet Count 168 10^3/uL (130-400); Red Cell Dist. Width 14.5 % (11.5-14.5)
[2025-09-25 11:50] LABS: Blood Urea Nitrogen 13 mg/dl (7-17); Calcium 9.2 mg/dl (8.4-10.2); Carbon Dioxide 29 mmol/L (22-30); Chloride 94 mmol/L (98-107); Glucose 110 mg/dl (70-99); Sodium 131 mmol/L (135-145); eGFR 16.68
[2025-09-25] MEDS: MORPHINE SULFATE 4 MG IV (11:56)
[2025-09-25] MEDS: NSS 500 IV (11:56)
[2025-09-25] MEDS: ZOFRAN 4 MG IV ×2 (11:57→20:02)
[2025-09-25 11:59] LABS: Lipase 129 U/L (23-300)
--- NOTE | 2025-09-25 16:02 | HPS.HSE ---
Addendum entered and electronically signed by Braulio Kern MD 09/25/25 16:08:
Nephro consulted for routine dialysis Saturday.
Original Note:
Family Physician
-
Family Physician: Adolfo Cruz
Chief Complaint
-
right back pain
History of Present Illness
74-year-old female past medical history of ESRD on hemodialysis Saturday, Saturday, Saturday, left upper extremity steal syndrome, paroxysmal atrial fibrillation on Eliquis, diabetes, diabetic neuropathy, hyperlipidemia, hypertension, PAD status post
bilateral BKA, chronic HFpEF, CAD, CVA presenting with worsening right flank pain associate with nausea and constipation.
Patient was recently admitted from 08/28 to 09/02 for similar right-sided upper quadrant pain/right shoulder pain. CT scan of the abdomen showed cholecystitis and mild diffuse gallbladder wall thickening and HIDA scan was performed ruling out
cholecystitis. Patient was found to have subacute posterior right fourth 5th and 6th and 7th rib fractures. Opiates were not given due to concern for chronic constipation. She was given tramadol without relief of symptoms. She stopped taking
tramadol few days ago because of constipation and because it is not helping. Last bowel movement 6 days ago. She switched to Tylenol but she is having severe pain. She is having nausea and vomiting and unable to keep any food down for the past 6
days. Last bowel movement 6 days ago. She did pass a small bit of flatus this morning. She is taking MiraLAX without improvement. She is having generalized abdominal discomfort.
She went to rehab after recent discharge and arrived home a week ago with worsening of symptoms. She does not have adequate support at home with her .
She denies smoking or alcohol use.
Medical History
Past Medical History
Past Medical History: Reports Other (ESRD on hemodialysis Saturday, Saturday, Saturday, left upper extremity steal syndrome, paroxysmal atrial fibrillation on Eliquis, diabetes, diabetic neuropathy, hyperlipidemia, hypertension, PAD status post
bilateral BKA, chronic HFpEF, CAD, CVA)
Past Surgical History: Reports Other ( Cardiac (Angioplasty and stenting X2), , Gynecological and Other (Bilateral BK amputation, Prior-partial right foot amputation))
Social History
Tobacco: Non-smoker
Alcohol: None
Drug: None
Family History
Family History: Not pertinent
Allergies / Home Medications
Allergies reflects when Allergies were last updated in [employer].
Home Medications with original date entered in [employer]
Allergy/Medication List:
Allergies
Allergy/AdvReac Type Severity Reaction Status Date / Time
chlorhexidine Allergy Intermediate Rash Verified 08/28/25 08:00
amoxicillin Allergy Nausea / Verified 08/28/25 08:00
Vomiting
animal dander Allergy Congestion, Verified 08/28/25 08:00
sneezing,
coughing
house dust Allergy Congestion, Verified 08/28/25 08:00
sneezing,
coughing
ibuprofen Allergy 'bleeding Verified 08/28/25 08:00
eyes'
levofloxacin Allergy Unknown Verified 08/28/25 08:00
metoclopramide HCl (From Allergy Restlessnes Verified 08/28/25 08:00
Reglan) s
nitrofurantoin Allergy Unknown Verified 08/28/25 08:00
oxycodone Allergy Severe Verified 08/28/25 08:00
hiccups;
Constipation
pollen extracts Allergy Sneezing; Verified 08/28/25 08:00
asthma
exacerbation
Sulfa (Sulfonamide Allergy Unknown Verified 08/28/25 08:00
Antibiotics)
sulfamethoxazole (From Allergy Hives Verified 08/28/25 08:00
Bactrim)
trimethoprim (From Bactrim) Allergy Hives Verified 08/28/25 08:00
vancomycin Allergy Hives Verified 08/28/25 08:00
Home Medications
sertraline 50 mg tablet 50 mg PO DAILY 05/22/19
gabapentin 100 mg capsule 100 mg PO BID Pain 04/02/23
amiodarone 200 mg tablet (Pacerone) 200 mg PO DAILY Arrhythmia 05/24/23
cholecalciferol (vitamin D3) 25 mcg (1,000 unit) capsule (Vitamin D3) 25 mcg PO MOWEFR Supplement 09/09/23
apixaban 5 mg tablet (Eliquis) 5 mg PO BID Blood Clot Prevention/Tx 10/07/23
lactobacillus combination no.4 3 billion cell capsule (Probiotic) 3,000 mmu cells PO DAILY Gastrointestinal Issue 10/07/23
polyethylene glycol 3350 17 gram oral powder packet (HealthyLax) 17 g PO DAILY Constipation 10/07/23
tamsulosin 0.4 mg capsule 0.4 mg PO DAILY Urinary Issue 10/07/23
rosuvastatin 40 mg tablet 40 mg PO DAILY High Cholesterol 06/20/25
amlodipine 5 mg tablet (Norvasc) 5 mg PO DAILY #30 tabs 06/24/25
insulin aspart U-100 100 unit/mL (3 mL) subcutaneous pen (Novolog FlexPen U-100 Insulin aspart) 1 sliding scale dose SC DIRECTED Diabetes 08/28/25
cefdinir 300 mg capsule 300 mg PO DAILY Infection 08/29/25
acetaminophen 650 mg tablet,extended release 650 mg PO Q8H PRN Pain #30 tabs 08/31/25
calcium 600 mg (as carbonate)-vitamin D3 5 mcg (200 unit) tablet 1 tab PO DAILY 30 days #30 tabs 08/31/25
lidocaine 5 % topical patch (Lidoderm) 1 patch topical DAILY #30 ea 08/31/25
Review of Systems
-
History Source: Patient
A 12 point ROS was completed and negative except as noted: Yes
Constitutional: Reports No Symptoms
EENT: Reports No Symptoms
Respiratory: Reports No Symptoms
Cardiac: Reports No Symptoms
: Reports No Symptoms
Musculoskeletal: Reports See HPI
Skin: Reports No Symptoms
Neurological: Reports No Symptoms
Endocrine: Reports No Symptoms
Hematologic/Lymphatic: Reports No Symptoms
Psych: Reports No Symptoms
Physical Exam
Vital Signs
Vital Signs
Temp Pulse Resp BP Pulse Ox
98.3 F 77 16 148/72 96
09/25/25 10:32 09/25/25 10:32 09/25/25 10:32 09/25/25 13:52 09/25/25 12:00
Physical Exam
General: Well Developed, Well Nourished and No Apparent Distress
HEENT: NormoCephalic, Moist mucous membranes and Atraumatic
Respiratory: Clear
Cardiac: S1/S2 and Regular Rhythm; No Murmur or Rub
GI: Soft, Non Tender, Non Distended and Normal Bowel Sounds; No Organomegaly
Rectal: Deferred by Provider
Musculoskeletal: No Clubbing, No Cyanosis and No Edema
Skin: No Rash
Neuro: Nonfocal/grossly intact
Laboratory Results
-
09/25/25 11:19
09/25/25 11:19
Laboratory Results
Total Bilirubin Cancelled 09/25/25 11:19
AST Cancelled 09/25/25 11:19
ALT Cancelled 09/25/25 11:19
Alkaline Phosphatase Cancelled 09/25/25 11:19
Lipase 129 U/L (23-300) 09/25/25 11:19
Data Reviewed
-
Lab Data: Labs Reviewed by me
Old Records: Reviewed
Impression/Plan
-
IMPRESSION:
PLAN:
# Right sided back/flank pain secondary to subacute fourth, fifth, sixth, seventh rib fractures, 8th and 9th rib fractures
- Given morphine in ER
- Continue Tylenol, lidocaine patch, gabapentin
# Constipation secondary to opiate use/immobility due to bilateral BKA
-CT abdomen pelvis shows moderate colonic and rectal stool burden likely constipation, circumferential bladder wall thickening superimposed cystitis cannot be excluded
- Continue MiraLAX but increase to twice daily
- Continue senna
- Milk of molasses enema
# Chronic urinary retention secondary to constipation/ immobility
- Continue tamsulosin
- Bladder scan protocol
ESRD on hemodialysis Saturday, Saturday, Saturday
- Nephrology consulted for routine dialysis tomorrow
History of left upper extremity steal syndrome
Paroxysmal atrial fibrillation
- Continue Eliquis
- Continue amiodarone
Type 2 diabetes
- Insulin sliding scale
Chronic anemia
- Hemoglobin stable at 7.9
Diabetic neuropathy
- Continue gabapentin
Hyperlipidemia
- Continue statin
Essential hypertension
- Continue amlodipine
PAD status post bilateral BKA
Chronic HFpEF
Right bundle branch block
CAD
History of CVA
Anxiety/depression
- Continue sertraline
DNR/DNI
DVT prophylaxis�Eliquis
Renal diet
--- NOTE | 2025-09-25 16:28 | W.CON.NEPH ---
Consultation
-
Date/Time Consultation Requested: 09/25/25 1600
Date/Time Consultation Performed: 09/25/25 1600
Requesting Provider: Dr. Kern
Performing Provider: Dr. Lopez
Reason for Consultation: ESRD
Medical History
-
Chief Complaint: Abd pain
History of Present Illness:
This is a 74-year-old female who is known to us for end-stage renal disease on hemodialysis Fridays at [facility]. She dialyzes via a CVC as she has had failed AV fistulas in the past. She has diabetes mellitus
type 2 which is stable on insulin therapy, paroxysmal atrial fibrillation rate controlled with amiodarone therapy. She is chronically anticoagulated with Eliquis. She previously suffered right 4-7 rib fxs and the was found to have new right 8-9 rib
fractures about 3 weeks ago. Pain control has been difficult at home. She is not on opiates at home. She developed constipation with N/V with tramadol. She had dialysis yesterday without issue. She come is because of worsening pain.
Past Medical History
1. Left upper extremity brachiocephalic AV fistula with basilic
vein transposition March 2023.
2. ESRD secondary to diabetic nephropathy with initiation of
dialysis March 2023.
3. Diabetes with neuropathy.
4. Paroxysmal AFib.
5. History of coronary artery disease with stenting.
6. Hypertension.
7. Diastolic heart failure.
8. Moderate pulmonary hypertension with associated moderate MR.
9. History of stroke 2019.
10. Secondary hyperparathyroidism.
11. Bilateral BKA.
12. Iron deficiency.
13. History of urinary retention.
Social History
Tobacco: Non-Smoker
Alcohol: None
Personal:
Living: With Family
Family History
Family History: Not Pertinent
Allergies / Home Medications
Allergy/AdvReac Type Severity Reaction Status Date / Time
chlorhexidine Allergy Intermediate Rash Verified 08/28/25 08:00
amoxicillin Allergy Nausea / Verified 08/28/25 08:00
Vomiting
animal dander Allergy Congestion, Verified 08/28/25 08:00
sneezing,
coughing
house dust Allergy Congestion, Verified 08/28/25 08:00
sneezing,
coughing
ibuprofen Allergy 'bleeding Verified 08/28/25 08:00
eyes'
levofloxacin Allergy Unknown Verified 08/28/25 08:00
metoclopramide HCl (From Allergy Restlessnes Verified 08/28/25 08:00
Reglan) s
nitrofurantoin Allergy Unknown Verified 08/28/25 08:00
oxycodone Allergy Severe Verified 08/28/25 08:00
hiccups;
Constipation
pollen extracts Allergy Sneezing; Verified 08/28/25 08:00
asthma
exacerbation
Sulfa (Sulfonamide Allergy Unknown Verified 08/28/25 08:00
Antibiotics)
sulfamethoxazole (From Allergy Hives Verified 08/28/25 08:00
Bactrim)
trimethoprim (From Bactrim) Allergy Hives Verified 08/28/25 08:00
vancomycin Allergy Hives Verified 08/28/25 08:00
�Medication �Instructions �Recorded �Confirmed �Type
sertraline 50 mg tablet 50 mg PO DAILY 05/22/19 08/28/25 Rx
gabapentin 100 mg capsule 100 mg PO BID Pain 04/02/23 08/28/25 History
amiodarone 200 mg tablet (Pacerone) 200 mg PO DAILY Arrhythmia 05/24/23 08/28/25 History
cholecalciferol (vitamin D3) 25 25 mcg PO MOWEFR Supplement 09/09/23 08/28/25 History
mcg (1,000 unit) capsule (Vitamin
D3)
apixaban 5 mg tablet (Eliquis) 5 mg PO BID Blood Clot 10/07/23 08/28/25 History
Prevention/Tx
lactobacillus combination no.4 3 3,000 mmu cells PO DAILY 10/07/23 08/28/25 History
billion cell capsule (Probiotic) Gastrointestinal Issue
polyethylene glycol 3350 17 gram 17 g PO DAILY Constipation 10/07/23 08/28/25 History
oral powder packet (HealthyLax)
tamsulosin 0.4 mg capsule 0.4 mg PO DAILY Urinary Issue 10/07/23 08/28/25 History
rosuvastatin 40 mg tablet 40 mg PO DAILY High Cholesterol 06/20/25 08/28/25 History
amlodipine 5 mg tablet (Norvasc) 5 mg PO DAILY #30 tabs 06/24/25 08/28/25 Rx
insulin aspart U-100 100 unit/mL 1 sliding scale dose SC 08/28/25 08/28/25 History
(3 mL) subcutaneous pen (Novolog DIRECTED Diabetes
FlexPen U-100 Insulin aspart)
cefdinir 300 mg capsule 300 mg PO DAILY Infection 08/29/25 08/28/25 History
acetaminophen 650 mg 650 mg PO Q8H PRN Pain #30 tabs 08/31/25 Rx
tablet,extended release
calcium 600 mg (as 1 tab PO DAILY 30 days #30 tabs 08/31/25 Rx
carbonate)-vitamin D3 5 mcg (200
unit) tablet
lidocaine 5 % topical patch 1 patch topical DAILY #30 ea 08/31/25 Rx
(Lidoderm)
Review of Systems
-
back pain, nausea, poor appetite
Physical Exam
Vital Signs
Vital Signs
Temp Pulse Resp BP Pulse Ox
98.3 F 77 16 148/72 96
09/25/25 10:32 09/25/25 10:32 09/25/25 10:32 09/25/25 13:52 09/25/25 12:00
Lab Results
WBC 3.7 10^3/uL (4.8-10.8) L 09/25/25 11:19
RBC 3.90 10^6/uL (4.20-5.40) L 09/25/25 11:19
Hgb 11.9 g/dL (12.0-16.0) L 09/25/25 11:19
Hct 37.4 % (37.0-47.0) 09/25/25 11:19
Plt Count 168 10^3/uL (130-400) 09/25/25 11:19
Sodium 131 mmol/L (135-145) L 09/25/25 11:19
Potassium mmol/L (3.5-5.1) 09/25/25 11:19
Chloride 94 mmol/L (98-107) L 09/25/25 11:19
Carbon Dioxide 29 mmol/L (22-30) 09/25/25 11:19
BUN 13 mg/dl (7-17) 09/25/25 11:19
Creatinine 2.9 mg/dL (0.6-1.0) H 09/25/25 11:19
eGFR 16.68 09/25/25 11:19
Glucose 110 mg/dl (70-99) H 09/25/25 11:19
Calcium 9.2 mg/dl (8.4-10.2) 09/25/25 11:19
Albumin Cancelled 09/25/25 11:19
Laboratory Tests
09/02/25
07:15
WBC 3.7 L
Hgb 10.5 L
Sodium 134 L
Potassium 3.[address] A?P with IV 09/25/25
IMPRESSION:
Moderate colonic and rectal stool burden which likely represents constipation.
There is a prior displaced posterior right 9th and 10th rib fracture. Small right-sided pleural effusion with right basilar atelectasis.
Cholelithiasis.
There is chronic circumferential urinary bladder wall thickening although superimposed cystitis would be difficult to exclude. Consider correlation with urinalysis.
Small hiatal hernia.
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
Physical Exam
Patient is awake alert oriented and in distress. Mood and affect were pleasant, insight and judgment were good. Pupils are equal round and reactive to light, extraocular movements are intact, sclera were anicteric. Hearing was normal, ears and nose
are intact. Oropharynx was clear. Neck was supple with trachea midline and no thyromegaly. Heart was regular rate and rhythm without rubs. Lower extremities without edema. bilateral BK amputations. Lungs were clear to auscultation bilaterally and
with normal excursion. Abdomen was soft, nontender, with normal active bowel sounds, and no hepatosplenomegaly. Skin was without rash and with normal turgor.
Assessment/Plan
-
Assessment:
ESRD on hemodialysis on Saturday, Saturday, Saturday
History of multiple failed fistulas now left CVC
History of left upper extremity steal syndrome
multiple right sided rib fractures
Constipation
Type 2 diabetes
Diabetic neuropathy
Paroxysmal atrial fibrillation
Chronic HFpEF
Right bundle branch block
Essential hypertension
History of CVA
History of PAD status post bilateral BKA
Chronic anemia with iron deficiency
History of recurrent UTI
Hyperlipidemia
Anxiety/depression
Atherosclerotic cardiovascular disease, PAD, CVA history
Plan:
HD saturday
pain management. prefer to avoid morphine in ESRD
if opiates, prefer hydromorphone or fentanyl
--- NOTE | 2025-09-25 17:08 | EDCM ---
CM reviewed chart and met with pt bedside in ED. Lives with her in 2 story home, has ramp at entrance. First floor set up.
Needs assistance with ADLs and personal care, bilateral BKA, has bilateral prostheses, can transfer self, mostly wheelchair bound
Per pt 's health is also declining, pt confirms she was given information for private pay caregivers and [facility] at last admission. Has not contacted anyone yet.
Pt was recently admitted 08/28 to 09/02, went to [facility] for 2 weeks STR.
Pt is on hemodialysis, goes to [facility] in [facility], 11am chair time. Her transports, also uses [employer] wheelchair van.
Pt states had one VN visit since discharge from [facility], does not remember the name of the agency.
[facility], [facility], [facility] and [facility]
ALDRIDGE reviewed and signed, copy left with pt.
PCP: Adolfo Cruz
Pharmacy: [facility]
Anticipate discharge home with resumption of home care, CM will continue to follow for all discharge planning needs.
[2025-09-25 19:53] LABS: Glucose - Point of Care 71 mg/dl (70-99)
[2025-09-25] MEDS: MORPHINE SULFATE 2 MG IV (19:56)
--- NOTE | 2025-09-25 20:00 | PTCARENOTE ---
Pt received from day shift RN at 1915. Pt pleasant, AAOx3, VSS, and complains of severe 9/10 back pain. Pt receptive to room and call storey. Pt bed in lowest position and call storey within reach. Pt educated on importance of call storey usage, pt relays
understanding and cooperation. Will continue with current plan of care.
[2025-09-25] MEDS: NOVOLOG FLEXPEN-LOW RESISTANCE SC (20:02)
[2025-09-25 21:18] LABS: Glucose - Point of Care 73 mg/dl (70-99)
[2025-09-25] MEDS: COMPAZINE 10 MG IV (22:01)
[2025-09-25] MEDS: MIRALAX 17 GRAMS PO (22:38)
[2025-09-25] MEDS: SENNA SYRUP 8.8 MG PO (22:38)
[2025-09-25 23:40] LABS: Glucose - Point of Care 86 mg/dl (70-99)
[2025-09-26] MEDS: MORPHINE SULFATE 2 MG IV ×2 (01:31→06:32)
[2025-09-26 01:51] LABS: Urine Character Cloudy (Clear)
[2025-09-26 01:54] LABS: Urine Red Blood Cell 0-2 /HPF (0-2); Urine Squamous Cell 0-2 /LPF (Few); Urine White Cell >100 /HPF (0-5)
[2025-09-26] MEDS: ZOFRAN 4 MG IV ×2 (02:07→16:44)
[2025-09-26 03:55] LABS: Glucose - Point of Care 78 mg/dl (70-99)
[2025-09-26] MEDS: COMPAZINE 10 MG IV (05:41)
[2025-09-26 08:00] VITALS: BP 107/58
[2025-09-26] MEDS: NOVOLOG FLEXPEN-LOW RESISTANCE SC ×3 (08:32→17:33)
[2025-09-26 08:35] LABS: Glucose - Point of Care 94 mg/dl (70-99)
[2025-09-26 08:37] LABS: Hematocrit 36.9 % (37.0-47.0); Hemoglobin 11.7 g/dL (12.0-16.0); Mean Corp Hgb Conc. 31.7 g/dL (33.0-37.0); Mean Corpuscular Volume 96.1 fL (81.0-99.0); Nucleated Red Blood Cells % 0 %; Platelet Count 172 10^3/uL (130-400); Red Cell Dist. Width 14.6 % (11.5-14.5)
[2025-09-26 09:16] LABS: ALT (SGPT) 46 U/L (0-35); AST (SGOT) 26 U/L (14-36); Albumin 3.7 g/dl (3.5-5.0); Alkaline Phosphatase 106 U/L (38-126); Blood Urea Nitrogen 18 mg/dl (7-17); Calcium 9.1 mg/dl (8.4-10.2); Carbon Dioxide 27 mmol/L (22-30); Chloride 95 mmol/L (98-107); Estimated Creatinine Clearance 12 ml/min; Glucose 88 mg/dl (70-99); Potassium 3.9 mmol/L (3.5-5.1); Sodium 130 mmol/L (135-145); Total Protein 6.5 g/dl (6.3-8.2); eGFR 10.40
[2025-09-26] MEDS: MIRALAX PO ×2 (09:29→20:53)
[2025-09-26] MEDS: FLOMAX 0.4 MG PO ×2 (11:47→21:02)
[2025-09-26] MEDS: ELIQUIS 5 MG PO ×2 (11:58→21:02)
[2025-09-26] MEDS: NORVASC PO (11:58)
[2025-09-26] MEDS: NEURONTIN 100 MG PO ×2 (11:59→21:02)
[2025-09-26] MEDS: VISBIOME 1 CAP PO (11:59)
[2025-09-26] MEDS: ZOLOFT 50 MG PO (11:59)
[2025-09-26 12:17] LABS: Glucose - Point of Care 93 mg/dl (70-99)
--- NOTE | 2025-09-26 13:28 | W.PN.NEPH.PH ---
Today's Communication / Plan
-
HD tomorrow
Assessment/Plan
-
Assessment:
ESRD on hemodialysis on Saturday, Saturday, Saturday
History of multiple failed fistulas now left CVC
History of left upper extremity steal syndrome
multiple right sided rib fractures
Constipation
Type 2 diabetes
Diabetic neuropathy
Paroxysmal atrial fibrillation
Chronic HFpEF
Right bundle branch block
Essential hypertension
History of CVA
History of PAD status post bilateral BKA
Chronic anemia with iron deficiency
History of recurrent UTI
Hyperlipidemia
Anxiety/depression
Atherosclerotic cardiovascular disease, PAD, CVA history
Plan:
HD saturday
pain management. prefer to avoid morphine in ESRD
if opiates, prefer hydromorphone or fentanyl
still hoping togo home with VN eventually
-
-
Date of Service: September 26, 2025
CC / HPI / ROS
-
Chief Complaint:
ESRD
History of Present Illness:
BP stable
pain modestly controlled
constipation improved
Review of Systems:
no CP/SOB
Labs
-
Labs:
WBC 8.2 10^3/uL (4.8-10.8) 09/26/25 08:06
RBC 3.84 10^6/uL (4.20-5.40) L 09/26/25 08:06
Hgb 11.7 g/dL (12.0-16.0) L 09/26/25 08:06
Hct 36.9 % (37.0-47.0) L 09/26/25 08:06
Plt Count 172 10^3/uL (130-400) 09/26/25 08:06
Sodium 130 mmol/L (135-145) L 09/26/25 08:06
Potassium 3.9 mmol/L (3.5-5.1) 09/26/25 08:06
Chloride 95 mmol/L (98-107) L 09/26/25 08:06
Carbon Dioxide 27 mmol/L (22-30) 09/26/25 08:06
BUN 18 mg/dl (7-17) H 09/26/25 08:06
Creatinine 4.3 mg/dL (0.6-1.0) H* 09/26/25 08:06
eGFR 10.40 09/26/25 08:06
Glucose 88 mg/dl (70-99) 09/26/25 08:06
Calcium 9.1 mg/dl (8.4-10.2) 09/26/25 08:06
Albumin 3.7 g/dl (3.5-5.0) 09/26/25 08:06
Physical Exam
-
Vital Signs:
Vital Signs
Temp Pulse Resp BP Pulse Ox
97.4 F 71 14 107/58 96
09/26/25 08:00 09/26/25 08:00 09/26/25 08:00 09/26/25 08:00 09/26/25 08:00
Cardiovascular:: Regular rate and rhythm
Respiratory:: Bilateral: CTA
Lung Excursion:: Normal
Abdomen:: Nontender and Soft
Bowel Sounds:: Normal
Extremity Edema:: None: Bilateral:
[2025-09-26] MEDS: PACERONE 200 MG PO (14:03)
--- NOTE | 2025-09-26 14:30 | W.PN.HOSP.TC ---
Today's Communication/Plan
-
maintain on laxatives prn
continue symptomatic care for nausea/vomiting
advance diet to [place]
Assessment / Plan
Assessment / Plan
# Constipation
Nausea/vomiting -
-CT abdomen pelvis shows moderate colonic and rectal stool burden likely constipation, circumferential bladder wall thickening superimposed cystitis cannot be excluded
-Patient provided laxatives and have 3 liquid stools
-Still continued to have nausea, symptomatic care to be continued
-Encourage oral intake as tolerated. Diet advanced to full liquid.
# Right sided back/flank pain
secondary to subacute fourth, fifth, sixth, seventh rib fractures, 8th and 9th rib fractures
- Given morphine in ER
- Continue Tylenol, lidocaine patch, gabapentin
- Patient denies of having mechanical fall/trauma. Reason for fractures remain unclear. Patient was recommended to have DEXA scan although due to other chronic comorbidity has not been able to do so.
# ESRD on hemodialysis Saturday, Saturday, Saturday
- Nephrology consulted for routine dialysis
# Chronic urinary retention secondary to constipation/ immobility
- Continue tamsulosin
# History of left upper extremity steal syndrome
# Paroxysmal atrial fibrillation
- Continue Eliquis
- Continue amiodarone
#Type 2 diabetes
- Insulin sliding scale
#Chronic anemia
- Hemoglobin stable at 7.9
#Diabetic neuropathy
- Continue gabapentin
#Hyperlipidemia
- Continue statin
#Essential hypertension
- Continue amlodipine
PAD status post bilateral BKA
Chronic HFpEF
Right bundle branch block
CAD
History of CVA
Anxiety/depression
DNR/DNI
DVT prophylaxis�Eliquis
Anticipated Discharge: 24 - 48 hours
Subjective/Interval History
-
Date of Service: September 26, 2025
Reported to have 3 loose stools after getting laxatives
Continues to have some right sided lower rib cage pain
Continues to have nausea, no vomiting
Objective Data
-
Labs:
Laboratory Results
09/26/25
08:06
WBC 8.2
Hgb 11.7 L
Hct 36.9 L
Plt Count 172
Sodium 130 L
Potassium 3.9
Chloride 95 L
Carbon Dioxide 27
BUN 18 H
Creatinine 4.3 H*
Glucose 88
Calcium 9.1
Total Bilirubin 1.3
AST 26
ALT 46 H
Alkaline Phosphatase 106
Vital Signs:
Vital Signs
Temp Pulse Resp BP Pulse Ox
97.4 F 71 14 107/58 96
09/26/25 08:00 09/26/25 08:00 09/26/25 08:00 09/26/25 08:00 09/26/25 08:00
I&O
09/25/25 09/26/25 09/27/25
06:59 05:59 06:59
Output Total 150 / 150 10 / 10
Balance -150 / -150 -10 / -10
Review of Systems
-
Respiratory: Reports No Symptoms
Cardiac: Reports No Symptoms
Abdomen/GI: Reports Nausea and Vomiting; Denies Abdominal Pain
Physical Exam
-
General: No Apparent Distress and Comfortable
HEENT: Negative Oxygen
Respiratory: Clear to Auscultation
Cardiac: Regular Rhythm and S1/S2; Negative Murmur or Rub
GI: Soft; Negative Tender
Musculoskeletal: No Edema
Neuro: Awake, Alert and Oriented
Psych: Calm
[2025-09-26 16:39] VITALS: BP 102/66
[2025-09-26 17:30] LABS: Glucose - Point of Care 131 mg/dl (70-99)
[2025-09-26] MEDS: CRESTOR 10 MG PO (17:47)
--- NOTE | 2025-09-26 18:54 | PTCARENOTE ---
Pt with left HD port, pt allergic to CHG. Wipes not done.
[2025-09-26] MEDS: SENNA SYRUP PO (21:03)
[2025-09-26] MEDS: DILAUDID 0.5 MG IV (21:10)
[2025-09-26 22:30] LABS: Glucose - Point of Care 145 mg/dl (70-99)
[2025-09-26 23:30] VITALS: BP 97/55
[2025-09-27] MEDS: DILAUDID 0.5 MG IV (01:19)
[2025-09-27 04:54] VITALS: BP 103/52
[2025-09-27 06:00] VITALS: BMI 23.5
[2025-09-27 07:19] LABS: Glucose - Point of Care 124 mg/dl (70-99)
[2025-09-27 07:45] VITALS: BP 95/49
[2025-09-27] MEDS: NOVOLOG FLEXPEN-LOW RESISTANCE SC ×3 (08:12→17:03)
[2025-09-27] MEDS: ELIQUIS 5 MG PO ×2 (09:09→21:55)
[2025-09-27] MEDS: PACERONE 200 MG PO (09:09)
[2025-09-27] MEDS: FLOMAX 0.4 MG PO ×2 (09:09→21:55)
[2025-09-27] MEDS: NEURONTIN 100 MG PO ×2 (09:09→21:54)
[2025-09-27] MEDS: VISBIOME 1 CAP PO (09:09)
[2025-09-27] MEDS: MIRALAX 17 GRAMS PO (09:10)
[2025-09-27 09:20] LABS: Blood Urea Nitrogen 30 mg/dl (7-17); Calcium 8.6 mg/dl (8.4-10.2); Carbon Dioxide 26 mmol/L (22-30); Chloride 92 mmol/L (98-107); Estimated Creatinine Clearance 9 ml/min; Glucose 203 mg/dl (70-99); Potassium 4.4 mmol/L (3.5-5.1); Sodium 131 mmol/L (135-145); eGFR 7.41
[2025-09-27] MEDS: NORVASC PO (09:25)
[2025-09-27] MEDS: ZOLOFT 50 MG PO (09:40)
--- NOTE | 2025-09-27 09:41 | WOUNDNOTE ---
R THIGH (POSTERIOR LOWER)
--- NOTE | 2025-09-27 09:47 | WOUNDNOTE ---
[facility] RN note: Patient admitted with R back pain. Patient lives at home with VN just about to start as per patient. She was recently d/c'ed from rehab. She doesn't want to go back to rehab.
See H&P for complete history.
PMH: ESRD on HD, LUE steal syndrome, a fib (Eliquis), subacute rib fractures, anemia, HTN, PAD, Bilateral BKA, CHF, CAD, CVA, anxiety.
Wound Location and type/assessment: Patient admitted with: sacral/buttocks generalized dull red skin with scattered purple skin areas and scattered small dermal open areas, DTI's vs stage 2 along with MASD. R ischial healing stage 2 pressure
injury; dull red with small dry scab. R posterior lower thigh with mild rash. Abdominal/groin fold mild MASD.
Appetite: poor.
Pressure redistribution devices in place: [employer] Accumax. Air chair cushion. Patient needed assistance to turn in bed. Discussed with ROMAN Torres who plans to apply a static air overlay.
Plan: Silicone border foam maintained on sacrum and R ischium. Silicone border foam applied to R sacral/buttocks. Patient pulled up in bed and turned to L semi side lying position with help from ROMAN Torres. Discussed with JUNIE Rubin.
Confirmed orders with Dr. Cabrales.
Care plan to be updated and will follow as needed.
Note to case management of equipment requested for discharge: Hospital bed with air overlay or air mattress if patient accepts. VN if goes home.
Recommend follow up at wound care center upon discharge.
[2025-09-27 11:21] LABS: Glucose - Point of Care 240 mg/dl (70-99)
[2025-09-27] MEDS: FLEXBUMIN 25% FOR HEMODIALYSIS 12.5 GRAMS IV ×2 (12:45→14:44)
[2025-09-27] MEDS: MANNITOL 25% 12.5 GRAMS IV ×2 (12:50→14:42)
[2025-09-27 13:55] LABS: Glucose - Point of Care 114 mg/dl (70-99)
[2025-09-27 14:30] VITALS: BMI 23.5
--- NOTE | 2025-09-27 14:53 | W.PN.HOSP.TC ---
Today's Communication/Plan
-
ADAT
lidocaine patch and oxy; avoid iv pain
HD, midodrine as per Renal
Assessment / Plan
Assessment / Plan
# Constipation
Nausea/vomiting -
- CT abdomen pelvis shows moderate colonic and rectal stool burden likely constipation, circumferential bladder wall thickening superimposed cystitis cannot be excluded
- Improved with Enema
- ADAT
- Encourage oral intake as tolerated. Diet advanced to full liquid.
# Right sided back/flank pain
- secondary to subacute fourth, fifth, sixth, seventh rib fractures, 8th and 9th rib fractures
- no morphine
- Continue Tylenol, gabapentin
-Add lidocaine patch
-switch to oxy prn
- Patient denies of having mechanical fall/trauma. Reason for fractures remain unclear. Patient was recommended to have DEXA scan although due to other chronic comorbidity has not been able to do so.
# ESRD on hemodialysis Saturday, Saturday, Saturday
-Add midodrine for today
- Nephrology consulted for routine dialysis
# Chronic urinary retention secondary to constipation/ immobility
- Continue tamsulosin
# History of left upper extremity steal syndrome
# Paroxysmal atrial fibrillation
- Continue Eliquis
- Continue amiodarone
#Type 2 diabetes
- Insulin sliding scale
#Hyponatremia
-on HD
#Chronic anemia
- Hemoglobin stable at 7.9
#Diabetic neuropathy
- Continue gabapentin
#Hyperlipidemia
- Continue statin
#Essential hypertension
- Continue amlodipine
PAD status post bilateral BKA
Chronic HFpEF
Right bundle branch block
CAD
History of CVA
Anxiety/depression
DNR/DNI
DVT prophylaxis�Eliquis
Anticipated Discharge: Within 24 hours
Subjective/Interval History
-
Date of Service: September 27, 2025
nausea improving, Had Bowel movement after enema this weekend
Objective Data
-
Labs:
Laboratory Results
09/27/25
08:27
Sodium 131 L
Potassium 4.4
Chloride 92 L
Carbon Dioxide 26
BUN 30 H
Creatinine 5.7 H*
Glucose 203 H
Calcium 8.6
Vital Signs:
Vital Signs
Temp Pulse Resp BP Pulse Ox
98.3 F 71 16 87/55 97
09/27/25 07:45 09/27/25 07:45 09/27/25 07:45 09/27/25 13:52 09/27/25 07:45
I&O
09/26/25 09/27/25 09/28/25
05:59 06:59 06:59
Intake Total 520 / 520 600 / 600
Output Total 150 / 150 10
Balance -150 / -150 510 / 510 600 / 600
Review of Systems
-
Respiratory: Reports No Symptoms
Cardiac: Reports No Symptoms
Abdomen/GI: Reports Nausea and Vomiting; Denies Abdominal Pain
Data Reviewed
-
CT Scan: Image personally visualized and interpreted, Report Reviewed by me, Discussed with Physician and Discussed with Patient
Medical Tests (Nuc Med, Echo etc): Report Reviewed by me and Discussed with Physician
Labs: Labs Reviewed by me, Discussed with Physician and Discussed with Patient
--- NOTE | 2025-09-27 15:04 | W.PN.NEPH.HD ---
Assessment
-
Seen on dialysis hypotensive midodrine given dialysis isovolemic
Progress Note - Hemodialysis
-
Date of Service: September 27, 2025
Duration: 30 minutes and 3 hours
Potassium Bath: 3
Calcium Bath: 2.5
Opti-Dialyzer: 160
Ultrafiltration: Other (1.5-2kg)
Blood Flow: 400
Dialysate Flow: 600
Heparin: no
EPO: no
[2025-09-27 15:44] VITALS: BP 111/56
[2025-09-27 16:55] LABS: Glucose - Point of Care 82 mg/dl (70-99)
--- NOTE | 2025-09-27 17:00 | PTCARENOTE ---
Static air overlay mattress placed for skin integrity. Turning schedule maintained
[2025-09-27] MEDS: CRESTOR 10 MG PO (17:36)
[2025-09-27] MEDS: LIDOCAINE 4% PATCH 1 PATCH TOPICAL (17:36)
[2025-09-27] MEDS: DESENEX/MITRAZOL/ZEASORB 1 APPLIC TOPICAL (21:54)
[2025-09-27] MEDS: SENNA SYRUP 8.8 MG PO (21:54)
[2025-09-27] MEDS: MIRALAX PO ×2 (21:54→22:14)
[2025-09-27] MEDS: REMOVE LIDOCAINE PATCH 1 PATCH REMOVE (21:55)
[2025-09-27 21:56] LABS: Glucose - Point of Care 197 mg/dl (70-99)
[2025-09-27 23:43] VITALS: BP 100/51
[2025-09-28] MEDS: ZOFRAN 4 MG IV ×3 (03:40→20:11)
[2025-09-28 06:00] VITALS: BMI 23.8
[2025-09-28 07:00] VITALS: BP 127/66
[2025-09-28 08:27] LABS: Glucose - Point of Care 153 mg/dl (70-99)
[2025-09-28] MEDS: NOVOLOG FLEXPEN-LOW RESISTANCE 1 UNITS SC (08:37)
[2025-09-28] MEDS: ZOLOFT 50 MG PO (08:38)
[2025-09-28] MEDS: FLOMAX 0.4 MG PO ×2 (08:38→20:12)
[2025-09-28] MEDS: NORVASC 5 MG PO (08:38)
[2025-09-28] MEDS: NEURONTIN 100 MG PO ×2 (08:38→20:12)
[2025-09-28] MEDS: VISBIOME 1 CAP PO (08:38)
[2025-09-28] MEDS: ELIQUIS 5 MG PO ×2 (08:38→20:11)
[2025-09-28] MEDS: PACERONE 200 MG PO (08:38)
[2025-09-28] MEDS: MIRALAX 17 GRAMS PO (08:39)
[2025-09-28] MEDS: DESENEX/MITRAZOL/ZEASORB 1 APPLIC TOPICAL ×2 (08:40→20:12)
[2025-09-28 09:30] LABS: Hematocrit 34.7 % (37.0-47.0); Hemoglobin 11.0 g/dL (12.0-16.0); Mean Corp Hgb Conc. 31.7 g/dL (33.0-37.0); Mean Corpuscular Volume 95.9 fL (81.0-99.0); Platelet Count 166 10^3/uL (130-400); Red Cell Dist. Width 15.0 % (11.5-14.5)
[2025-09-28 10:02] LABS: Blood Urea Nitrogen 16 mg/dl (7-17); Calcium 8.9 mg/dl (8.4-10.2); Carbon Dioxide 31 mmol/L (22-30); Chloride 94 mmol/L (98-107); Estimated Creatinine Clearance 13 ml/min; Glucose 163 mg/dl (70-99); Potassium 3.5 mmol/L (3.5-5.1); Sodium 131 mmol/L (135-145); eGFR 11.69
--- NOTE | 2025-09-28 12:24 | W.PN.HOSP.TC ---
Today's Communication/Plan
-
abx
f/u cultures
Assessment / Plan
Assessment / Plan
# Constipation
- CT abdomen pelvis shows moderate colonic and rectal stool burden likely constipation, circumferential bladder wall thickening superimposed cystitis cannot be excluded
- Improved with Enema
- ADAT
- Encourage oral intake as tolerated. Diet advanced to full liquid.
#N/V
-improved
-possible 2/2 to constipation v UTI
#UTI
-tenderness and dysuria x 2 days
-Start abx
f/u cultures
# Right sided back/flank pain
- secondary to subacute fourth, fifth, sixth, seventh rib fractures, 8th and 9th rib fractures
- no morphine
- Continue Tylenol, gabapentin
-Add lidocaine patch
-switch to oxy prn
- Patient denies of having mechanical fall/trauma. Reason for fractures remain unclear. Patient was recommended to have DEXA scan although due to other chronic comorbidity has not been able to do so.
# ESRD on hemodialysis Saturday, Saturday, Saturday
-Add midodrine for today
- Nephrology consulted for routine dialysis
# Chronic urinary retention secondary to constipation/ immobility
- Continue tamsulosin
# History of left upper extremity steal syndrome
# Paroxysmal atrial fibrillation
- Continue Eliquis
- Continue amiodarone
#Type 2 diabetes
- Insulin sliding scale
#Hyponatremia
-on HD
#Chronic anemia
- Hemoglobin stable at 7.9
#Diabetic neuropathy
- Continue gabapentin
#Hyperlipidemia
- Continue statin
#Essential hypertension
- Continue amlodipine
PAD status post bilateral BKA
Chronic HFpEF
Right bundle branch block
CAD
History of CVA
Anxiety/depression
DNR/DNI
DVT prophylaxis�Eliquis
Anticipated Discharge: Within 24 hours
Subjective/Interval History
-
Date of Service: September 28, 2025
still nauseas
Objective Data
-
Labs:
Laboratory Results
09/28/25
09:08
WBC 5.5
Hgb 11.0 L
Hct 34.7 L
Plt Count 166
Sodium 131 L
Potassium 3.5
Chloride 94 L
Carbon Dioxide 31 H
BUN 16
Creatinine 3.9 H
Glucose 163 H
Calcium 8.9
Vital Signs:
Vital Signs
Temp Pulse Resp BP Pulse Ox
98.1 F 73 18 127/66 97
09/28/25 07:00 09/28/25 07:00 09/28/25 07:00 09/28/25 07:00 09/28/25 07:00
I&O
09/27/25 09/28/25 09/29/25
06:59 06:59 06:59
Intake Total 520 / 520 840 / 840
Output Total
Balance 510 / 510 840 / 840
Review of Systems
-
Respiratory: Reports No Symptoms
Cardiac: Reports No Symptoms
Abdomen/GI: Reports Nausea and Vomiting; Denies Abdominal Pain
Physical Exam
-
General: No Apparent Distress and Comfortable
HEENT: Negative Oxygen
Respiratory: Clear to Auscultation
Cardiac: Regular Rhythm and S1/S2; Negative Murmur or Rub
GI: Soft; Negative Tender
Musculoskeletal: No Edema
Neuro: Awake, Alert and Oriented
Psych: Calm
Data Reviewed
-
CT Scan: Image personally visualized and interpreted, Report Reviewed by me, Discussed with Physician and Discussed with Patient
Medical Tests (Nuc Med, Echo etc): Report Reviewed by me and Discussed with Physician
Labs: Labs Reviewed by me, Discussed with Physician and Discussed with Patient
[2025-09-28 12:30] LABS: Glucose - Point of Care 240 mg/dl (70-99)
[2025-09-28] MEDS: LIDOCAINE 4% PATCH 1 PATCH TOPICAL (13:20)
[2025-09-28] MEDS: STERILE WATER FOR INJECTION 10 ML IV (13:20)
[2025-09-28] MEDS: NOVOLOG FLEXPEN-LOW RESISTANCE 2 UNITS SC ×2 (13:21→17:59)
[2025-09-28] MEDS: ROCEPHIN 1000 MG IV (13:21)
--- NOTE | 2025-09-28 13:56 | CM ---
Patient is for discharge to home when stable, with spouse and [facility].
Plan; Home with spouse and [facility]
--- NOTE | 2025-09-28 14:24 | W.PN.NEPH.PH ---
Today's Communication / Plan
-
No acute need for dialysis today
Assessment/Plan
-
Assessment:
ESRD on hemodialysis on Saturday, Saturday, Saturday
History of multiple failed fistulas now left CVC
History of left upper extremity steal syndrome
multiple right sided rib fractures
Constipation
Type 2 diabetes
Diabetic neuropathy
Paroxysmal atrial fibrillation
Chronic HFpEF
Right bundle branch block
Essential hypertension
History of CVA
History of PAD status post bilateral BKA
Chronic anemia with iron deficiency
History of recurrent UTI
Hyperlipidemia
Anxiety/depression
Atherosclerotic cardiovascular disease, PAD, CVA history
Plan:
Continue MWF
pain management. prefer to avoid morphine in ESRD
Epogen for anemia.
See order.
No acute need for dialysis today
-
-
Date of Service: September 28, 2025
CC / HPI / ROS
-
Chief Complaint:
ESRD
History of Present Illness:
BP stable
pain modestly controlled
constipation improved
Review of Systems:
no CP/SOB
Labs
-
Labs:
WBC 5.5 10^3/uL (4.8-10.8) 09/28/25 09:08
RBC 3.62 10^6/uL (4.20-5.40) L 09/28/25 09:08
Hgb 11.0 g/dL (12.0-16.0) L 09/28/25 09:08
Hct 34.7 % (37.0-47.0) L 09/28/25 09:08
Plt Count 166 10^3/uL (130-400) 09/28/25 09:08
Sodium 131 mmol/L (135-145) L 09/28/25 09:08
Potassium 3.5 mmol/L (3.5-5.1) 09/28/25 09:08
Chloride 94 mmol/L (98-107) L 09/28/25 09:08
Carbon Dioxide 31 mmol/L (22-30) H 09/28/25 09:08
BUN 16 mg/dl (7-17) 09/28/25 09:08
Creatinine 3.9 mg/dL (0.6-1.0) H 09/28/25 09:08
eGFR 11.69 09/28/25 09:08
Glucose 163 mg/dl (70-99) H 09/28/25 09:08
Calcium 8.9 mg/dl (8.4-10.2) 09/28/25 09:08
Albumin 3.7 g/dl (3.5-5.0) 09/26/25 08:06
Physical Exam
-
Vital Signs:
Vital Signs
Temp Pulse Resp BP Pulse Ox
98.1 F 73 18 127/66 97
09/28/25 07:00 09/28/25 07:00 09/28/25 07:00 09/28/25 07:00 09/28/25 07:00
Cardiovascular:: Regular rate and rhythm
Respiratory:: Bilateral: CTA
Lung Excursion:: Normal
Abdomen:: Nontender and Soft
Bowel Sounds:: Normal
Extremity Edema:: None: Bilateral:
--- NOTE | 2025-09-28 14:33 | VNURNOTE ---
Chart reviewed. Liaison met with pt at bedside. 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 She is familiar with [facility]. This author explained that [facility] could accept pt if she chose to switch VN agencies. Informed pt that
it might take up to a week before [facility] services could start. Pt thought it over and decided to keep existing services with [facility]. Nurse Zoe called at bedside and confirmed that pt still current w/them and has not been cancelled.
Patient also considering DC to Rehab instead of home. She stated that her is now in the hospital and she would be home alone. She inquired about rehabs in [facility]. PARVEEN Calhoun updated.
[2025-09-28 14:48] VITALS: BP 103/56
--- NOTE | 2025-09-28 15:27 | PN.CDI ---
CDI
- -
CDI:
Physician Documentation Request
Admit Date: 09/27/25 09:14
Dear Doctor Samra,
Clinical Indicators:
Patient admitted with subacute rib fractures & constipation.
09/27 [facility] RN skin/wound assessment: Right Ischium healing Stage 2 pressure injury, POA
Sacrum/Buttocks DTI vs stage 2 along with MASD, POA
Treatment: Silicone border foam dressings, pressure redistribution devices
Physician documentation of the type and location of wounds is required for compliant documentation. Based on the above clinical findings and your assessment, please provide the following in your progress note:
1. Location of the ulcer/wound, including laterality.
2. Type (etiology) of ulcer/wound:
- Pressure (decubitus) ulcer
- Other
- Unable to determine
3. If a pressure ulcer, please also include the stage* of the ulcer:
- Stage 1 - Skin intact, non-blanchable redness
- Stage 2 - Partial thickness loss of dermis, includes intact or open blister
- Stage 3 - Full thickness tissue not including bone, tendon or muscle
- Stage 4 - Full thickness tissue loss, including exposed bone, tendon or muscle
- Unstageable - Full thickness loss in which the base of the ulcer is covered by slough (yellow, caputo, emerson, green or brown) and/or eschar (caputo, brown or black) in the wound bed.
- Unable to determine
Use of terms such as suspected, likely, concern for, or probable (associated with a specific diagnosis that is being evaluated, monitored, or treated as if it exists) are acceptable and can be coded in the inpatient setting, when documented at the
time of discharge.
Thank you,
SITA Walters RN
CDI Specialist
available via tiger text
Please use your independent medical judgment in providing your response.
*Source: National Pressure Ulcer Advisory Panel (NPUAP)
[2025-09-28 17:57] LABS: Glucose - Point of Care 201 mg/dl (70-99)
[2025-09-28] MEDS: CRESTOR 10 MG PO (18:00)
[2025-09-28] MEDS: MIRALAX PO (20:12)
[2025-09-28] MEDS: REMOVE LIDOCAINE PATCH 1 PATCH REMOVE (21:21)
[2025-09-28] MEDS: SENNA SYRUP 8.8 MG PO (21:21)
[2025-09-28 21:28] LABS: Glucose - Point of Care 255 mg/dl (70-99)
[2025-09-28 23:00] VITALS: BP 115/58
[2025-09-29] MEDS: TYLENOL 650 MG PO ×2 (00:38→20:32)
--- NOTE | 2025-09-29 04:23 | PTCARENOTE ---
CHG wipes incomplete due to patient having known allergy to chlorhexidine.
[2025-09-29 06:00] VITALS: BMI 24.3
[2025-09-29 07:00] VITALS: BP 143/63
[2025-09-29 07:27] LABS: Glucose - Point of Care 159 mg/dl (70-99)
[2025-09-29] MEDS: NOVOLOG FLEXPEN-LOW RESISTANCE 1 UNITS SC ×2 (08:18→18:21)
[2025-09-29 08:21] LABS: Hematocrit 33.4 % (37.0-47.0); Hemoglobin 11.1 g/dL (12.0-16.0); Mean Corp Hgb Conc. 33.2 g/dL (33.0-37.0); Mean Corpuscular Volume 94.6 fL (81.0-99.0); Platelet Count 158 10^3/uL (130-400); Red Cell Dist. Width 14.6 % (11.5-14.5)
[2025-09-29] MEDS: ZOLOFT 50 MG PO (08:21)
[2025-09-29] MEDS: NEURONTIN 100 MG PO ×2 (08:21→20:34)
[2025-09-29] MEDS: VISBIOME 1 CAP PO (08:21)
[2025-09-29] MEDS: ELIQUIS 5 MG PO ×2 (08:21→20:34)
[2025-09-29] MEDS: FLOMAX 0.4 MG PO ×2 (08:21→20:34)
[2025-09-29] MEDS: NORVASC 5 MG PO (08:21)
[2025-09-29] MEDS: DESENEX/MITRAZOL/ZEASORB 1 APPLIC TOPICAL ×2 (08:22→20:35)
[2025-09-29] MEDS: PACERONE 200 MG PO (08:22)
[2025-09-29] MEDS: MIRALAX 17 GRAMS PO (08:22)
[2025-09-29] MEDS: ZOFRAN 4 MG IV ×2 (08:30→20:33)
[2025-09-29] MEDS: LIDOCAINE 4% PATCH 1 PATCH TOPICAL (08:31)
[2025-09-29 09:28] LABS: Blood Urea Nitrogen 30 mg/dl (7-17); Calcium 8.6 mg/dl (8.4-10.2); Carbon Dioxide 26 mmol/L (22-30); Chloride 97 mmol/L (98-107); Estimated Creatinine Clearance 10 ml/min; Glucose 162 mg/dl (70-99); Potassium 3.8 mmol/L (3.5-5.1); Sodium 132 mmol/L (135-145); eGFR 8.28
--- NOTE | 2025-09-29 10:26 | CM ---
testing manager reviewed patient's chart and met with patient this am and patient is requesting skilled placement options were reviewed and margot has selected [facility] referral sent to [facility]. Needs
PT/OT orders.
Plan; Skilled placement, referral sent to [facility].
[2025-09-29 12:11] LABS: Glucose - Point of Care 293 mg/dl (70-99)
[2025-09-29] MEDS: NOVOLOG FLEXPEN-LOW RESISTANCE 3 UNITS SC (13:13)
[2025-09-29] MEDS: STERILE WATER FOR INJECTION 10 ML IV ×2 (13:16→20:34)
[2025-09-29] MEDS: MAXIPIME 1000 MG IV ×2 (13:17→20:33)
--- NOTE | 2025-09-29 13:25 | WOUNDNOTE ---
WOC RN note: Keith Tanner r:recommend an air mattress at [facility]. She has sacral skin breakdown.
--- NOTE | 2025-09-29 13:58 | W.PN.HOSP.TC ---
Addendum entered and electronically signed by Nader Cabrales MD 09/29/25 17:20:
Right Ischium healing Stage 2 pressure injury, POA Sacrum/Buttocks DTI vs stage 2 along with YVETTE TREVIZO
Original Note:
Today's Communication/Plan
-
cefepime
f/u cultures
symptomatic improvement
HD
Assessment / Plan
Assessment / Plan
# Constipation
- CT abdomen pelvis shows moderate colonic and rectal stool burden likely constipation, circumferential bladder wall thickening superimposed cystitis cannot be excluded
- Improved with Enema
- ADAT
- Encourage oral intake as tolerated. Diet advanced to full liquid.
#N/V
-persistent
-possible 2/2 UTI
#UTI
-tenderness and dysuria x 2 days
-Pseudomonas
-Switch to cefepime
-f/u cultures
# Right sided back/flank pain
- secondary to subacute fourth, fifth, sixth, seventh rib fractures, 8th and 9th rib fractures
- no morphine
- Continue Tylenol, gabapentin
-Add lidocaine patch
-switch to oxy prn
- Patient denies of having mechanical fall/trauma. Reason for fractures remain unclear. Patient was recommended to have DEXA scan although due to other chronic comorbidity has not been able to do so.
# ESRD on hemodialysis Saturday, Saturday, Saturday
- Nephrology consulted for routine dialysis
# Chronic urinary retention secondary to constipation/ immobility
- Continue tamsulosin
# History of left upper extremity steal syndrome
# Paroxysmal atrial fibrillation
- Continue Eliquis
- Continue amiodarone
#Type 2 diabetes
- Insulin sliding scale
#Hyponatremia
-on HD
#Chronic anemia
- Hemoglobin stable at 7.9
#Diabetic neuropathy
- Continue gabapentin
#Hyperlipidemia
- Continue statin
#Essential hypertension
- Continue amlodipine
PAD status post bilateral BKA
Chronic HFpEF
Right bundle branch block
CAD
History of CVA
Anxiety/depression
DNR/DNI
DVT prophylaxis�Eliquis
Anticipated Discharge: 24 - 48 hours
Subjective/Interval History
-
Date of Service: September 29, 2025
still nauseous
Objective Data
-
Labs:
Laboratory Results
09/29/25
08:05
WBC 4.8
Hgb 11.1 L
Hct 33.4 L
Plt Count 158
Sodium 132 L
Potassium 3.8
Chloride 97 L
Carbon Dioxide 26
BUN 30 H
Creatinine 5.2 H*
Glucose 162 H
Calcium 8.6
Vital Signs:
Vital Signs
Temp Pulse Resp BP Pulse Ox
97.6 F 90 18 143/63 98
09/29/25 07:00 09/29/25 08:21 09/29/25 07:00 09/29/25 08:21 09/29/25 07:00
I&O
09/28/25 09/29/25 09/30/25
06:59 06:59 06:59
Intake Total 840 / 840 480 / 480
Balance 840 / 840 480 / 480
Review of Systems
-
Respiratory: Reports No Symptoms
Cardiac: Reports No Symptoms
Abdomen/GI: Reports Nausea and Vomiting; Denies Abdominal Pain
Data Reviewed
-
CT Scan: Image personally visualized and interpreted, Report Reviewed by me, Discussed with Physician and Discussed with Patient
Medical Tests (Nuc Med, Echo etc): Report Reviewed by me and Discussed with Physician
Labs: Labs Reviewed by me, Discussed with Physician and Discussed with Patient
[2025-09-29 15:00] VITALS: BP 113/30
--- NOTE | 2025-09-29 16:36 | W.PN.NEPH.HD ---
Assessment
-
Pt seen on HD. no complaints. VSS, access ok
for rehab
Progress Note - Hemodialysis
-
Date of Service: September 29, 2025
Duration: 30 minutes and 3 hours
Potassium Bath: 3
Calcium Bath: 2.5
Opti-Dialyzer: 160
Ultrafiltration: Other (1.5kg)
Blood Flow: 400
Dialysate Flow: 600
Heparin: 0
EPO: 0
[2025-09-29 16:52] LABS: Glucose - Point of Care 156 mg/dl (70-99)
[2025-09-29] MEDS: CRESTOR 10 MG PO (18:21)
[2025-09-29] MEDS: HEPARIN 4000 UNITS INTRACATH (18:22)
[2025-09-29] MEDS: MIRALAX PO (20:35)
[2025-09-29 21:34] LABS: Glucose - Point of Care 317 mg/dl (70-99)
[2025-09-29] MEDS: REMOVE LIDOCAINE PATCH 1 PATCH REMOVE (22:52)
[2025-09-29] MEDS: SENNA SYRUP PO (22:52)
[2025-09-29 23:24] VITALS: BP 112/62
[2025-09-30] MEDS: ZOFRAN 4 MG IV ×3 (04:28→21:52)
[2025-09-30 06:00] VITALS: BMI 23.9
[2025-09-30 07:20] VITALS: BP 141/72
[2025-09-30 07:33] LABS: Glucose - Point of Care 165 mg/dl (70-99)
[2025-09-30 07:41] LABS: Hematocrit 35.3 % (37.0-47.0); Hemoglobin 11.6 g/dL (12.0-16.0); Mean Corp Hgb Conc. 32.9 g/dL (33.0-37.0); Mean Corpuscular Volume 93.1 fL (81.0-99.0); Platelet Count 168 10^3/uL (130-400); Red Cell Dist. Width 14.8 % (11.5-14.5)
[2025-09-30 08:03] LABS: ALT (SGPT) 31 U/L (0-35); AST (SGOT) 19 U/L (14-36); Albumin 3.7 g/dl (3.5-5.0); Alkaline Phosphatase 108 U/L (38-126); Blood Urea Nitrogen 17 mg/dl (7-17); Calcium 8.6 mg/dl (8.4-10.2); Carbon Dioxide 27 mmol/L (22-30); Chloride 98 mmol/L (98-107); Estimated Creatinine Clearance 15 ml/min; Glucose 196 mg/dl (70-99); Potassium 3.3 mmol/L (3.5-5.1); Sodium 132 mmol/L (135-145); Total Protein 6.5 g/dl (6.3-8.2); eGFR 13.78
[2025-09-30] MEDS: ZOLOFT 50 MG PO (08:40)
[2025-09-30] MEDS: PACERONE 200 MG PO (08:41)
[2025-09-30] MEDS: NORVASC 5 MG PO (08:41)
[2025-09-30] MEDS: FLOMAX 0.4 MG PO ×2 (08:41→20:13)
[2025-09-30] MEDS: MIRALAX PO ×3 (08:41→20:56)
[2025-09-30] MEDS: NEURONTIN 100 MG PO ×2 (08:41→20:13)
[2025-09-30] MEDS: ELIQUIS 5 MG PO ×2 (08:41→20:13)
[2025-09-30] MEDS: VISBIOME 1 CAP PO (08:41)
[2025-09-30] MEDS: DESENEX/MITRAZOL/ZEASORB 1 APPLIC TOPICAL ×2 (08:42→20:57)
[2025-09-30] MEDS: NOVOLOG FLEXPEN-LOW RESISTANCE SC ×3 (08:44→17:17)
[2025-09-30] MEDS: LIDOCAINE 4% PATCH 1 PATCH TOPICAL (08:56)
[2025-09-30 09:35] VITALS: BP 122/64; PULSE 78; O2SAT 98
[2025-09-30 10:21] VITALS: BP 122/64; PULSE 78
--- NOTE | 2025-09-30 12:06 | W.PN.NEPH.PH ---
Today's Communication / Plan
-
HD tomorrow
Assessment/Plan
-
Assessment:
ESRD on hemodialysis on Saturday, Saturday, Saturday
History of multiple failed fistulas now left CVC
History of left upper extremity steal syndrome
multiple right sided rib fractures
Constipation
Type 2 diabetes
Diabetic neuropathy
Paroxysmal atrial fibrillation
Chronic HFpEF
Right bundle branch block
Essential hypertension
History of CVA
History of PAD status post bilateral BKA
Chronic anemia with iron deficiency
History of recurrent UTI
Hyperlipidemia
Anxiety/depression
Atherosclerotic cardiovascular disease, PAD, CVA history
Plan:
Continue MWF HD
pain management. prefer to avoid morphine in ESRD
Epogen for anemia.
rehab planning
-
-
Date of Service: September 30, 2025
CC / HPI / ROS
-
Chief Complaint:
ESRD
History of Present Illness:
BP stable
pain modestly controlled
constipation improved
toelrated HD yesterday
Review of Systems:
no CP/SOB
Labs
-
Labs:
WBC 5.8 10^3/uL (4.8-10.8) 09/30/25 07:24
RBC 3.79 10^6/uL (4.20-5.40) L 09/30/25 07:24
Hgb 11.6 g/dL (12.0-16.0) L 09/30/25 07:24
Hct 35.3 % (37.0-47.0) L 09/30/25 07:24
Plt Count 168 10^3/uL (130-400) 09/30/25 07:24
Sodium 132 mmol/L (135-145) L 09/30/25 07:24
Potassium 3.3 mmol/L (3.5-5.1) L 09/30/25 07:24
Chloride 98 mmol/L (98-107) 09/30/25 07:24
Carbon Dioxide 27 mmol/L (22-30) 09/30/25 07:24
BUN 17 mg/dl (7-17) 09/30/25 07:24
Creatinine 3.4 mg/dL (0.6-1.0) H 09/30/25 07:24
eGFR 13.78 09/30/25 07:24
Glucose 196 mg/dl (70-99) H 09/30/25 07:24
Calcium 8.6 mg/dl (8.4-10.2) 09/30/25 07:24
Albumin 3.7 g/dl (3.5-5.0) 09/30/25 07:24
Physical Exam
-
Vital Signs:
Vital Signs
Temp Pulse Resp BP Pulse Ox
98.2 F 77 16 141/72 98
09/30/25 07:20 09/30/25 07:20 09/30/25 07:20 09/30/25 07:20 09/30/25 07:20
Cardiovascular:: Regular rate and rhythm
Respiratory:: Bilateral: CTA
Lung Excursion:: Normal
Abdomen:: Nontender and Soft
Bowel Sounds:: Normal
Extremity Edema:: None: Bilateral:
--- NOTE | 2025-09-30 12:31 | CM ---
Addendum entered by Unique Tanner 09/30/25 14:11:
Patient will need air mattress at skilled facility.
Addendum entered by Unique Tanner 09/30/25 13:58:
Patient has been accepted at [facility] on 10/02/25, since there are no HD spots at [facility], patient will continue with her HD at [place] and [facility] will transport patient to [facility]
in [place].
Original Note:
Per updated notes from physician patient patient for possible discharge tomorrow, plan is for skilled placement, Patient for HD tomorrow, referral sent to [facility] and they are trying to locate a HD chair for patient.
Plan; Skilled placement.
[2025-09-30 14:00] LABS: Glucose - Point of Care 185 mg/dl (70-99)
[2025-09-30] MEDS: TYLENOL 650 MG PO (14:06)
--- NOTE | 2025-09-30 14:13 | W.PN.HOSP.TC ---
Today's Communication/Plan
-
cont abx
barium swallow
hd as per renal
psych recs
Assessment / Plan
Assessment / Plan
# Constipation
- CT abdomen pelvis shows moderate colonic and rectal stool burden likely constipation, circumferential bladder wall thickening superimposed cystitis cannot be excluded
- Improved with Enema
- ADAT
- Encourage oral intake as tolerated. Diet advanced to full liquid.
#N/V
-persistent
-possible 2/2 UTI v anxiety
-Barium Swallow today
#UTI
-tenderness and dysuria x 2 days
-Pseudomonas
-Switch to cefepime, will switch to cipro once nausea has improved
-f/u cultures
# Right sided back/flank pain
- secondary to subacute fourth, fifth, sixth, seventh rib fractures, 8th and 9th rib fractures
- no morphine
- Continue Tylenol, gabapentin
-Add lidocaine patch
-switch to oxy prn
- Patient denies of having mechanical fall/trauma. Reason for fractures remain unclear. Patient was recommended to have DEXA scan although due to other chronic comorbidity has not been able to do so.
#Anxiety
-psych consulted
#Hyponatremia
#Hypokalemia
# ESRD on hemodialysis Saturday, Saturday, Saturday
- Nephrology consulted for routine dialysis
-monitor and adjust
# Chronic urinary retention secondary to constipation/ immobility
- Continue tamsulosin
# History of left upper extremity steal syndrome
# Paroxysmal atrial fibrillation
- Continue Eliquis
- Continue amiodarone
#Type 2 diabetes
- Insulin sliding scale
#Chronic anemia
- Hemoglobin stable at 7.9
#Diabetic neuropathy
- Continue gabapentin
#Hyperlipidemia
- Continue statin
#Essential hypertension
- Continue amlodipine
PAD status post bilateral BKA
Chronic HFpEF
Right bundle branch block
CAD
History of CVA
Anxiety/depression
DNR/DNI
DVT prophylaxis�Eliquis
Anticipated Discharge: 24 - 48 hours
Subjective/Interval History
-
Date of Service: September 30, 2025
Very anxious today, intermittent nausea although appears to have improved.
Objective Data
-
Labs:
Laboratory Results
09/30/25
07:24
WBC 5.8
Hgb 11.6 L
Hct 35.3 L
Plt Count 168
Sodium 132 L
Potassium 3.3 L
Chloride 98
Carbon Dioxide 27
BUN 17
Creatinine 3.4 H
Glucose 196 H
Calcium 8.6
Total Bilirubin 0.9
AST 19
ALT 31
Alkaline Phosphatase 108
Vital Signs:
Vital Signs
Temp Pulse Resp BP Pulse Ox
98.2 F 77 16 141/72 98
09/30/25 07:20 09/30/25 07:20 09/30/25 07:20 09/30/25 07:20 09/30/25 07:20
I&O
09/29/25 09/30/25 10/01/25
06:59 06:59 06:59
Intake Total 480 / 480 480 / 480
Balance 480 / 480 480 / 480
Review of Systems
-
Respiratory: Reports No Symptoms
Cardiac: Reports No Symptoms
Abdomen/GI: Reports Nausea and Vomiting; Denies Abdominal Pain
Data Reviewed
-
CT Scan: Image personally visualized and interpreted, Report Reviewed by me, Discussed with Physician and Discussed with Patient
Medical Tests (Nuc Med, Echo etc): Report Reviewed by me and Discussed with Physician
Labs: Labs Reviewed by me, Discussed with Physician and Discussed with Patient
[2025-09-30 15:30] VITALS: BP 145/71
--- NOTE | 2025-09-30 15:30 | CON.MD ---
Consultation - Medical
-
patient seen chart reviewed. spoke with nursing and with cm. this consult was done today sep 30 2025. the patient is a 74 year old woman with many serious medical problems see below. this consult focused on allowing her to express her feelings
rather than gathering every last bit of information. she has struggled for many years with diabetes and its complications. at this point she is a double amputee. she has suffered brittle bones with several rib fx that are currently causing her
significant pain. she has some skin breakdown on her back the pain of which was acutely increased a short while before i saw her when she went to [facility] for a procedure. she comes to with complaint of pain n/v urinary retention severe
constipation. at one point it was thought she might have cholecystitis but at this point pain thought secondary to rib fx and uti. (pseudomonas) she is losing her vision due to retinopathy. she has begun to think her life is not worth living as
she sees no scenario where she is again able to care for herself. she is a of snf rx some which were terrible and others which did allow her to return to her prior lof where she was able to care for herself and her impaired . she
cannot foresee ever being able to care for herself at home again, cannot afford the home care she feels she would need, and says her really requires her help more than her can help her. she says he has always been a 'difficult man' but she
did not want to speak too negatively about him. she has verbalized her wish to consider hospice to her family but has not gotten much support. her sons were upset and tried to encourage her to persevere and told her she would eventually feel better
but she says they do not know the extent of her disabillity and her felt she was abandoning him. she was very sad as she spoke of her three grand kids and leaving them behind was most painful. she already feels she has missed so much of
their lives. she is taking zoloft 50 mg and does not see that it has done very much for her. she is not acutely suicidal but as stated is considering hospice, she said to be dnr was a big decision for her in itself
past psych hx was taking zoloft for depression. in the past had taken elavil for pain and asked specifically about it today
medical hx see above re current medical. patient w esrf secondary to dm on dialysis. hx of cva paf gerd ascvd with angioplasty and stents pvd rca occlusion hx avblock bilateral bka hx cva hld chf htn hx gangrene constipation pulmonary htn anemia
valvular disease hx mi hx asthma
fh non contributory
substance abuse denied
social resides w h. two sons live in [place]. both live very stressful lives. one with two kids works in [employer] in a 'horrible job' and is home for about one hour a day with his kids. the other is to a woman incapacitated by her weight and
she says 'he does everything' her own marriage stressed by h's severe illness
has a brother but not very close
mse alert ox3 cooperative and engaged speech and thought process normal. she is depressed affect appropriate to emotional trend no psychosis no si average intelligence insight and judgment good.
dx unspecified depression adjustment do w anxiety
recommendations she is set to go to snf on saturday and happily she will be able to have her dialysis in that facility without being transported elsewhere which has happened in the past (she has had to wait four hours for transport after dialysis
back to dc which has been very upsetting for her). she is considering hospice at this point which i tried to give her permission to do although of course she may decide against it . communicated to cm that a consult to hospice may be in order if
that is what patient decides. for now ativan o.5 mg up to tid may help with anxiety and even w pain. would also increase zoloft to 75 mg. zoloft can be increased w esrf and generally does not have practicial impact on qtc. would monitor ecg. psych
will follow
--- NOTE | 2025-09-30 15:49 | CON.ID ---
Consultation
-
Date/Time Consultation Requested: 09/30/2025 1108
Date/Time Consultation Performed: 09/30/2025 1500
Requesting Provider: Dr. Cabrales
Performing Provider: Dr. Giordano
Reason for Consultation: Complicated urinary tract infection
Chief Complaint / Past History
History of Present Illness
Tram Robert is a 74-year-old female being evaluated the request of Dr. Cabrales in regards to a complicated urinary tract infection with Pseudomonas. History is obtained from chart review, along with patient interview.
The patient has a significant past medical history of ESRD�HD, left upper extremity steal syndrome and diabetes. The patient presents to [facility] on 09/25/2025 secondary to worsening right flank pain with associated nausea and
constipation. The patient recently was admitted in early August, at which time she had right sided upper quadrant pain and right shoulder pain. She was thought to initially have cholecystitis, but HIDA scanning was negative. She subsequently was
found to have posterior right 4th, 5th and 6th rib fractures. Following that admission she was admitted to rehab, and recently discharged to home only to develop worsening symptoms.
Here she has not had any leukocytosis, but she did admit to some dysuria at the end of her stream and urinalysis was checked, found to have significant pyuria, and cultures revealed growth of Pseudomonas aeruginosa. Given a history of allergy to
fluoroquinolones, Infectious Diseases is asked to comment upon further antimicrobial therapy. At this time, the patient has been started on cefepime.
The patient denies any fevers. She reports that she produces approximately 1/2 cup of urine per day, although she may go days without any urination at all. She notes some discomfort only at the end of her stream and notes no history of hematuria.
Past History
Additional Past Medical History:
ESRD�HD
Left upper extremity steal syndrome
P A-fib
DM
Diabetic neuropathy
HLD
HTN
PAD
CHF
CAD
Hx CVA
Additional Past Surgical History:
Bilateral BKA
PCI with stenting
Allergy History:
chlorhexidine Allergy (Intermediate, Verified 08/28/25 08:00)
Rash
amoxicillin Allergy (Verified 08/28/25 08:00)
Nausea / Vomiting
animal dander Allergy (Verified 08/28/25 08:00)
Congestion, sneezing, coughing
house dust Allergy (Verified 08/28/25 08:00)
Congestion, sneezing, coughing
ibuprofen Allergy (Verified 08/28/25 08:00)
'bleeding eyes'
levofloxacin Allergy (Verified 08/28/25 08:00)
Unknown
metoclopramide HCl (From Reglan) Allergy (Verified 08/28/25 08:00)
Restlessness
nitrofurantoin Allergy (Verified 08/28/25 08:00)
Unknown
oxycodone Allergy (Verified 08/28/25 08:00)
Severe hiccups; Constipation
pollen extracts Allergy (Verified 08/28/25 08:00)
Sneezing; asthma exacerbation
Sulfa (Sulfonamide Antibiotics) Allergy (Verified 08/28/25 08:00)
Unknown
sulfamethoxazole (From Bactrim) Allergy (Verified 08/28/25 08:00)
Hives
trimethoprim (From Bactrim) Allergy (Verified 08/28/25 08:00)
Hives
vancomycin Allergy (Verified 08/28/25 08:00)
Hives
Medications Reviewed: Yes
Current Antibiotics:
Cefepime 1 gm IV q24h
Social History
Tobacco: Non-Smoker
Alcohol: None
Drug: None
Employment: Not Employed
Family History
Family History: Not Pertinent
Review of Systems
Vital Signs
Temp Pulse Resp BP Pulse Ox
98.2 F 77 16 141/72 98
09/30/25 07:20 09/30/25 07:20 09/30/25 07:20 09/30/25 07:20 09/30/25 07:20
Physical Exam
Physical Exam
Constitutional: No Acute Distress, Comfortable, Chronically Ill and Non-toxic
Eyes: No Conjunctival Hemorrhage and Sclera Anicteric
Oral: No Thrush and No Ulcers
Cardiovascular: Irregular Rate and S1/S2; Negative S3/S4
Pulmonary: Clear; Negative Wheezes or Rales
Gastrointestinal: Soft, Tender (Diffusely; lower quadrants), Non Distended, Normal Bowel Sounds, No Rebound and No Guarding
Genito-Urinary: Negative Jansen
Musculoskeletal: Other (Bilateral BKA)
Skin: Warm and Dry; Negative Rash
Neurological: Awake and Alert
Psychological: Calm
Lab / Diagnostic Study Results
09/30/25 07:24
09/30/25 07:24
Abs Immat Gran (auto) 0.0 10^3/uL (0-0.05) 09/26/25 08:06
Absolute Neuts (auto) 7.0 10^3/uL (1.4-6.5) H 09/26/25 08:06
Absolute Lymphs (auto) 0.4 10^3/uL (1.2-3.4) L 09/26/25 08:06
Absolute Monos (auto) 0.5 10^3/uL (0.1-0.6) 09/26/25 08:06
Absolute Basos (auto) 0.1 10^3/uL (0-0.2) 09/26/25 08:06
Immature Gran % 0.2 % (0-0.5) 09/26/25 08:06
Neutrophils % 86.0 % (42.2-75.2) H 09/26/25 08:06
Lymphocytes % 5.0 % (20.5-51.1) L 09/26/25 08:06
Monocytes % 6.6 % (1.7-9.3) 09/26/25 08:06
Eosinophils % 1.5 % (0-6) 09/26/25 08:06
Basophils % 0.7 % (0-2) 09/26/25 08:06
Urine WBC >100 /HPF (0-5) A 09/26/25 01:41 EST
Ur Squamous Epith Cells 0-2 /LPF (Few) 09/26/25 01:41 EST
Microbiology Results
Micro:
09/26/25 01:41 EST Urine Culture - Final
Urine Pseudomonas aeruginosa
Urine Culture Final 09/26/25
CC: Greater than 100,000 CFU/ML Pseudomonas aeruginosa
Organism 1 Pseudomonas aeruginosa
1. Pseudomonas aeruginosa
M.I.C. RX
--------- ---
Aztreonam <=4 S
Cefepime <=2 S
Ceftazidime 4 S
Ciprofloxacin <=0.25 S
Meropenem <=1 S
Piperacillin/Tazobactam <=8 S
Tobramycin <=2 S
Assessment / Plan
Pseudomonas bacteriuria with pyuria
- Patient with end-stream burning although no other objective signs/symptoms of infection
Constipation
Right-sided flank pain with history of th rib fractures
Anemia
ESRD�HD
Left upper extremity steal syndrome
P A-fib
DM
Diabetic neuropathy
HLD
HTN
PAD
CHF
CAD
Hx CVA
Recommendations:
Continue with cefepime (d#2) dosed for renal insufficiency.
Would complete a 10-day course of therapy.
At discharge, can transition to cefepime 1.5 gm IV after HD on Saturday and Saturday, cefepime 2 gm after HD on Saturday.
[2025-09-30 17:11] LABS: Glucose - Point of Care 125 mg/dl (70-99)
[2025-09-30] MEDS: CRESTOR 10 MG PO (17:59)
[2025-09-30] MEDS: STERILE WATER FOR INJECTION 10 ML IV (18:00)
[2025-09-30] MEDS: MAXIPIME 1000 MG IV (18:01)
[2025-09-30] MEDS: SENNA SYRUP PO ×2 (20:14→20:57)
[2025-09-30 21:30] LABS: Glucose - Point of Care 257 mg/dl (70-99)
[2025-09-30] MEDS: REMOVE LIDOCAINE PATCH 1 PATCH REMOVE (21:52)
[2025-09-30] MEDS: ATIVAN 0.5 MG PO (21:52)
[2025-09-30 23:59] VITALS: BP 146/65
[2025-10-01 06:00] VITALS: BMI 23.3
[2025-10-01 07:00] VITALS: BP 110/60
[2025-10-01 07:12] LABS: Hematocrit 34.2 % (37.0-47.0); Hemoglobin 10.6 g/dL (12.0-16.0); Mean Corp Hgb Conc. 31.0 g/dL (33.0-37.0); Mean Corpuscular Volume 98.0 fL (81.0-99.0); Platelet Count 166 10^3/uL (130-400); Red Cell Dist. Width 15.2 % (11.5-14.5)
[2025-10-01 07:57] LABS: ALT (SGPT) 31 U/L (0-35); AST (SGOT) 19 U/L (14-36); Albumin 3.4 g/dl (3.5-5.0); Alkaline Phosphatase 91 U/L (38-126); Blood Urea Nitrogen 25 mg/dl (7-17); Calcium 8.6 mg/dl (8.4-10.2); Carbon Dioxide 27 mmol/L (22-30); Chloride 99 mmol/L (98-107); Estimated Creatinine Clearance 10 ml/min; Glucose 167 mg/dl (70-99); Potassium 3.4 mmol/L (3.5-5.1); Sodium 132 mmol/L (135-145); Total Protein 6.0 g/dl (6.3-8.2); eGFR 9.11
[2025-10-01 08:10] LABS: Glucose - Point of Care 170 mg/dl (70-99)
[2025-10-01] MEDS: NOVOLOG FLEXPEN-LOW RESISTANCE 1 UNITS SC ×2 (08:40→17:37)
[2025-10-01] MEDS: PACERONE 200 MG PO (08:40)
[2025-10-01] MEDS: ZOLOFT 75 MG PO (08:40)
[2025-10-01] MEDS: NORVASC 5 MG PO (08:40)
[2025-10-01] MEDS: ELIQUIS 5 MG PO ×2 (08:40→21:22)
[2025-10-01] MEDS: LIDOCAINE 4% PATCH 1 PATCH TOPICAL (08:41)
[2025-10-01] MEDS: NEURONTIN 100 MG PO ×2 (08:42→21:22)
[2025-10-01] MEDS: VISBIOME 1 CAP PO (08:42)
[2025-10-01] MEDS: FLOMAX 0.4 MG PO ×2 (08:43→21:22)
[2025-10-01] MEDS: DESENEX/MITRAZOL/ZEASORB 1 APPLIC TOPICAL ×2 (08:43→21:22)
[2025-10-01] MEDS: MIRALAX PO ×2 (08:43→20:29)
[2025-10-01 11:46] LABS: Glucose - Point of Care 273 mg/dl (70-99)
[2025-10-01] MEDS: NOVOLOG FLEXPEN-LOW RESISTANCE 3 UNITS SC (12:48)
--- NOTE | 2025-10-01 14:04 | CM ---
Patient is for first shift HD tomorrow, and then transfer to [facility], patient has been set up to [facility] by ambulance with a 3pm shredder picker.
[facility] at 3pm ambulance already spoke with Acute care ambulance.
[facility]
Report [phone]
--- NOTE | 2025-10-01 14:12 | W.PN.NEPH.PH ---
Today's Communication / Plan
-
Dialysis tomorrow for outpatient TTS
Assessment/Plan
-
Assessment:
ESRD on hemodialysis on Saturday, Saturday, Saturday
History of multiple failed fistulas now left CVC
History of left upper extremity steal syndrome
multiple right sided rib fractures
Constipation
Type 2 diabetes
Diabetic neuropathy
Paroxysmal atrial fibrillation
Chronic HFpEF
Right bundle branch block
Essential hypertension
History of CVA
History of PAD status post bilateral BKA
Chronic anemia with iron deficiency
History of recurrent UTI
Hyperlipidemia
Anxiety/depression
Atherosclerotic cardiovascular disease, PAD, CVA history
Plan:
Continue MWF HD. Based on outpatient placement discussion with case management will do her next dialysis treatment tomorrow TTS and then discharge. Will do early to enable discharge
pain management. prefer to avoid morphine in ESRD
Epogen for anemia.
rehab planning
-
-
Date of Service: October 01, 2025
CC / HPI / ROS
-
Chief Complaint:
ESRD
History of Present Illness:
BP stable
pain modestly controlled
constipation improved
toelrated HD yesterday
Review of Systems:
no CP/SOB
Labs
-
Labs:
WBC 4.6 10^3/uL (4.8-10.8) L 10/01/25 06:43
RBC 3.49 10^6/uL (4.20-5.40) L 10/01/25 06:43
Hgb 10.6 g/dL (12.0-16.0) L 10/01/25 06:43
Hct 34.2 % (37.0-47.0) L 10/01/25 06:43
Plt Count 166 10^3/uL (130-400) 10/01/25 06:43
Sodium 132 mmol/L (135-145) L 10/01/25 06:43
Potassium 3.4 mmol/L (3.5-5.1) L 10/01/25 06:43
Chloride 99 mmol/L (98-107) 10/01/25 06:43
Carbon Dioxide 27 mmol/L (22-30) 10/01/25 06:43
BUN 25 mg/dl (7-17) H 10/01/25 06:43
Creatinine 4.8 mg/dL (0.6-1.0) H* 10/01/25 06:43
eGFR 9.11 10/01/25 06:43
Glucose 167 mg/dl (70-99) H 10/01/25 06:43
Calcium 8.6 mg/dl (8.4-10.2) 10/01/25 06:43
Albumin 3.4 g/dl (3.5-5.0) L 10/01/25 06:43
Physical Exam
-
Vital Signs:
Vital Signs
Temp Pulse Resp BP Pulse Ox
97.6 F 75 18 110/60 98
10/01/25 07:00 10/01/25 07:00 10/01/25 07:00 10/01/25 07:00 10/01/25 08:40
Cardiovascular:: Regular rate and rhythm
Respiratory:: Bilateral: CTA
Lung Excursion:: Normal
Abdomen:: Nontender and Soft
Bowel Sounds:: Normal
Extremity Edema:: None: Bilateral:
--- NOTE | 2025-10-01 14:21 | W.PN.HOSP.TC ---
Today's Communication/Plan
-
Continue antibiotics
Anxiolytics
Pending discharge tomorrow, confirmed by case making machine operator
Assessment / Plan
Assessment / Plan
# Constipation
- CT abdomen pelvis shows moderate colonic and rectal stool burden likely constipation, circumferential bladder wall thickening superimposed cystitis cannot be excluded
- Improved with Enema
- ADAT
- Encourage oral intake as tolerated. Diet advanced to full liquid.
#N/V
-possible 2/2 UTI v anxiety
�Improved, no need for barium swallow, tolerating diet
#UTI
-tenderness and dysuria x 2 days
-Pseudomonas
-Switch to cefepime (day 3)-total 10-day course cefepime - 1.5 g IV after HD on Saturday and Saturday, cefepime 2 g after HD on Saturday
-f/u cultures
# Right sided back/flank pain
- secondary to subacute fourth, fifth, sixth, seventh rib fractures, 8th and 9th rib fractures
- no morphine
- Continue Tylenol, gabapentin
-Add lidocaine patch
-switch to oxy prn
- Patient denies of having mechanical fall/trauma. Reason for fractures remain unclear. Patient was recommended to have DEXA scan although due to other chronic comorbidity has not been able to do so.
#Anxiety
-psych consulted
�Added Ativan, increase Zoloft
#Hyponatremia
#Hypokalemia
# ESRD on hemodialysis Saturday, Saturday, Saturday
- Nephrology consulted for routine dialysis
-monitor and adjust
# Chronic urinary retention secondary to constipation/ immobility
- Continue tamsulosin
# History of left upper extremity steal syndrome
# Paroxysmal atrial fibrillation
- Continue Eliquis
- Continue amiodarone
#Type 2 diabetes
- Insulin sliding scale
#Chronic anemia
- Hemoglobin stable at 7.9
#Diabetic neuropathy
- Continue gabapentin
#Hyperlipidemia
- Continue statin
#Essential hypertension
- Continue amlodipine
PAD status post bilateral BKA
Chronic HFpEF
Right bundle branch block
CAD
History of CVA
Anxiety/depression
DNR/DNI
DVT prophylaxis�Eliquis
Anticipated Discharge: Within 24 hours
Subjective/Interval History
-
Date of Service: October 01, 2025
Nausea and vomiting greatly improved
Objective Data
-
Labs:
Laboratory Results
10/01/25
06:43
WBC 4.6 L
Hgb 10.6 L
Hct 34.2 L
Plt Count 166
Sodium 132 L
Potassium 3.4 L
Chloride 99
Carbon Dioxide 27
BUN 25 H
Creatinine 4.8 H*
Glucose 167 H
Calcium 8.6
Total Bilirubin 0.8
AST 19
ALT 31
Alkaline Phosphatase 91
Vital Signs:
Vital Signs
Temp Pulse Resp BP Pulse Ox
97.6 F 75 18 110/60 98
10/01/25 07:00 10/01/25 07:00 10/01/25 07:00 10/01/25 07:00 10/01/25 08:40
I&O
09/30/25 10/01/25 10/02/25
06:59 06:59 06:59
Intake Total 480 / 480
Balance 480 / 480
Review of Systems
-
History Source: Patient
All other systems: Not reviewed unless documented
Data Reviewed
-
CT Scan: Image personally visualized and interpreted
Labs: Labs Reviewed by me
[2025-10-01 15:00] VITALS: BP 137/68
--- NOTE | 2025-10-01 15:08 | W.PN.ID1 ---
Date of Service
Date of Service: October 01, 2025
Today's Communication
Would complete a 10-day course of therapy.
At discharge, can transition to cefepime 1.5 gm IV after HD on Saturday and Saturday, cefepime 2 gm after HD on Saturday.
Assessment / Plan
Pseudomonas bacteriuria with pyuria
- Patient with end-stream burning although no other objective signs/symptoms of infection
Constipation
Right-sided flank pain with history of rib fractures
Anemia
ESRD�HD
Left upper extremity steal syndrome
P A-fib
DM
Diabetic neuropathy
HLD
HTN
PAD
CHF
CAD
Hx CVA
Recommendations:
Continue with cefepime (d#3) dosed for renal insufficiency.
Would complete a 10-day course of therapy.
At discharge, can transition to cefepime 1.5 gm IV after HD on Saturday and Saturday, cefepime 2 gm after HD on Saturday.
Chief Complaint
-: UTI
Subjective / Review of Systems
afebrile
bp stable
no events overnight
reports the dysuria has resolved
Vital Signs / Physical Exam
Vital Signs
Vital Signs
Temp Pulse Resp BP Pulse Ox
97.6 F 75 18 110/60 98
10/01/25 07:00 10/01/25 07:00 10/01/25 07:00 10/01/25 07:00 10/01/25 08:40
Physical Exam
Constitutional: No Acute Distress
Cardiovascular: Regular Rate and S1/S2; Negative Murmur or Rub
Pulmonary: Clear and Symmetric; Negative Wheezes or Rales
Gastrointestinal: Soft, Non Tender, Non Distended and Normal Bowel Sounds
Skin: Warm and Dry; Negative Rash or Jaundice
Objective Data
Lab Data
Lab Results
10/01/25 06:43
10/01/25 06:43
Estimated Creat Clear 10 ml/min 10/01/25 06:43
Total Bilirubin 0.8 mg/dl (0.2-1.3) 10/01/25 06:43
AST 19 U/L (14-36) 10/01/25 06:43
ALT 31 U/L (0-35) 10/01/25 06:43
Alkaline Phosphatase 91 U/L (38-126) 10/01/25 06:43
Most recent labs reviewed.
Micro Results:
09/26/25 01:41 EST Urine Culture - Final
Urine Pseudomonas aeruginosa
Urine Culture Final 09/26/25
CC: Greater than 100,000 CFU/ML Pseudomonas aeruginosa
Organism 1 Pseudomonas aeruginosa
1. Pseudomonas aeruginosa
M.I.C. RX
--------- ---
Aztreonam <=4 S
Cefepime <=2 S
Ceftazidime 4 S
Ciprofloxacin <=0.25 S
Meropenem <=1 S
Piperacillin/Tazobactam <=8 S
Tobramycin <=2 S
--- NOTE | 2025-10-01 16:30 | W.PN.UPDATE ---
Update Note
Progress Note Update
pt seen chart reviewed discussed with Dr Holloway. pt states she has decided she wants to continue trying for the sake of her sons and grandchildren. says sons spoke with her for two hours last night. reviews the many challenges she has in her life,
both her health and her , but balances that with the bethany she gets from grandchildren. reports relief with ativan and zoloft.
[2025-10-01 16:50] VITALS: BP 115/60; PULSE 69; O2SAT 97
[2025-10-01] MEDS: STERILE WATER FOR INJECTION 10 ML IV (17:14)
[2025-10-01] MEDS: CRESTOR 10 MG PO (17:14)
[2025-10-01] MEDS: MAXIPIME 1000 MG IV (17:15)
[2025-10-01 17:32] LABS: Glucose - Point of Care 176 mg/dl (70-99)
[2025-10-01] MEDS: SENNA SYRUP PO (21:21)
[2025-10-01] MEDS: REMOVE LIDOCAINE PATCH 1 PATCH REMOVE (21:29)
[2025-10-01 21:38] LABS: Glucose - Point of Care 366 mg/dl (70-99)
[2025-10-01] MEDS: NOVOLOG FLEXPEN 4 UNITS SC (22:07)
[2025-10-01 23:00] VITALS: BP 121/56
[2025-10-02 00:09] LABS: Glucose - Point of Care 307 mg/dl (70-99)
--- NOTE | 2025-10-02 03:29 | PTCARENOTE ---
Pt's blood sugar at 2130 was 366; TAYA Larkin notified, order placed for novolog 4 units and given to pt.
Blood sugar rechecked at midnight was 307; TAYA Larkin notified, no further orders.
[2025-10-02 05:52] VITALS: BMI 23.5
[2025-10-02] MEDS: ZOFRAN IV (05:58)
[2025-10-02 07:00] VITALS: BP 149/67
[2025-10-02 08:04] LABS: Hematocrit 30.3 % (37.0-47.0); Hemoglobin 10.0 g/dL (12.0-16.0); Mean Corp Hgb Conc. 33.0 g/dL (33.0-37.0); Mean Corpuscular Volume 94.4 fL (81.0-99.0); Platelet Count 159 10^3/uL (130-400); Red Cell Dist. Width 14.7 % (11.5-14.5)
[2025-10-02 08:54] LABS: ALT (SGPT) 26 U/L (0-35); AST (SGOT) 15 U/L (14-36); Albumin 3.4 g/dl (3.5-5.0); Alkaline Phosphatase 94 U/L (38-126); Blood Urea Nitrogen 36 mg/dl (7-17); Calcium 8.4 mg/dl (8.4-10.2); Carbon Dioxide 24 mmol/L (22-30); Chloride 98 mmol/L (98-107); Estimated Creatinine Clearance 8 ml/min; Glucose 198 mg/dl (70-99); Potassium 3.4 mmol/L (3.5-5.1); Sodium 132 mmol/L (135-145); Total Protein 6.1 g/dl (6.3-8.2); eGFR 7.11
[2025-10-02] MEDS: TYLENOL 650 MG PO (11:03)
--- NOTE | 2025-10-02 11:45 | W.PN.HOSP.TC ---
Addendum entered and electronically signed by Nader Cabrales MD 10/03/25 14:42:
[id number]
Original Note:
Today's Communication/Plan
-
Ativan as needed, increase Zoloft
Antibiotic course
Follow PCP outpatient
Follow-up labs outpatient
Assessment / Plan
Assessment / Plan
# Constipation
- CT abdomen pelvis shows moderate colonic and rectal stool burden likely constipation, circumferential bladder wall thickening superimposed cystitis cannot be excluded
- Improved with Enema
- Diet
- Encourage oral intake as tolerated. Diet advanced to full liquid.
#N/V
-possible 2/2 UTI v anxiety
�Improved, no need for barium swallow, tolerating diet
#UTI
-tenderness and dysuria x 2 days
-Pseudomonas
-Switch to cefepime (day 3)-total 10-day course cefepime - 1.5 g IV after HD on Saturday and Saturday, cefepime 2 g after HD on Saturday
-f/u cultures
# Right sided back/flank pain
- secondary to subacute fourth, fifth, sixth, seventh rib fractures, 8th and 9th rib fractures
- no morphine
- Continue Tylenol, gabapentin
-Add lidocaine patch
-switch to oxy prn
- Patient denies of having mechanical fall/trauma. Reason for fractures remain unclear. Patient was recommended to have DEXA scan although due to other chronic comorbidity has not been able to do so.
#Anxiety
-psych consulted
�Added Ativan, increase Zoloft
#Hyponatremia
#Hypokalemia
# ESRD on hemodialysis Saturday, Saturday, Saturday
- Nephrology consulted for routine dialysis
-monitor and adjust
# Chronic urinary retention secondary to constipation/ immobility
- Continue tamsulosin
# History of left upper extremity steal syndrome
# Paroxysmal atrial fibrillation
- Continue Eliquis
- Continue amiodarone
#Type 2 diabetes
- Insulin sliding scale
#Chronic anemia
- Hemoglobin stable at 7.9
#Diabetic neuropathy
- Continue gabapentin
#Hyperlipidemia
- Continue statin
#Essential hypertension
- Continue amlodipine
PAD status post bilateral BKA
Chronic HFpEF
Right bundle branch block
CAD
History of CVA
Anxiety/depression
DNR/DNI
DVT prophylaxis�Eliquis
More than 30 minutes spent in discharge including
Final examination of the patient
Summarizing hospital stay
Instructions for continuing care to all relevant caregivers
Preparation of discharge records, prescriptions, and referral forms
Total time spent (in minutes): 36
Anticipated Discharge: Today
Subjective/Interval History
-
Date of Service: October 02, 2025
No acute events overnight, on dialysis
Objective Data
-
Labs:
Laboratory Results
10/02/25
06:00
WBC 5.1
Hgb 10.0 L
Hct 30.3 L
Plt Count 159
Sodium 132 L
Potassium 3.4 L
Chloride 98
Carbon Dioxide 24
BUN 36 H
Creatinine 5.9 H*
Glucose 198 H
Calcium 8.4
Total Bilirubin 0.7
AST 15
ALT 26
Alkaline Phosphatase 94
Vital Signs:
Vital Signs
Temp Pulse Resp BP Pulse Ox
97.8 F 68 18 149/67 96
10/02/25 07:00 10/02/25 07:00 10/02/25 07:00 10/02/25 07:00 10/02/25 07:00
I&O
10/01/25 10/02/25 10/03/25
06:59 06:59 06:59
Intake Total 720 / 720 480 / 480
Balance 720 / 720 480 / 480
Review of Systems
-
History Source: Patient
All other systems: Not reviewed unless documented
Data Reviewed
-
CT Scan: Image personally visualized and interpreted
Labs: Labs Reviewed by me
--- NOTE | 2025-10-02 11:46 | W.DS.TRANS ---
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
-
Discharge Instructions:
Sleep Apnea Risk Intermediate
Discharge Diagnosis/Procedures Nausea vomiting
UTI
Back pain
Anxiety
Diet Low Cholesterol,Low Fat
Activity As tolerated
Blood Work CBC and BMP within 3 to 5 days
Instructions:
Stand-Alone Forms:
Changes to Home Medications: Yes
Discharge Medications:
DC Medications w/original date entered in [facility]
gabapentin 100 mg capsule 100 mg PO BID Pain 04/02/23
amiodarone 200 mg tablet (Pacerone) 200 mg PO DAILY Arrhythmia 05/24/23
cholecalciferol (vitamin D3) 25 mcg (1,000 unit) capsule (Vitamin D3) 25 mcg PO DAILY Supplement 09/09/23
apixaban 5 mg tablet (Eliquis) 5 mg PO BID Blood Clot Prevention/Tx 10/07/23
polyethylene glycol 3350 17 gram oral powder packet (HealthyLax) 17 g PO DAILY Constipation 10/07/23
tamsulosin 0.4 mg capsule 0.4 mg PO BID Urinary Issue 10/07/23
rosuvastatin 40 mg tablet 40 mg PO DAILY High Cholesterol 06/20/25
insulin aspart U-100 100 unit/mL (3 mL) subcutaneous pen (Novolog FlexPen U-100 Insulin aspart) 1 sliding scale dose SC ACHS Diabetes 08/28/25
Lactobac no.2-Bifidobac no.1-S. thermo 112.5 billion cell capsule (Visbiome) 1 cap PO DAILY Supplement 09/25/25
acetaminophen 500 mg tablet 1,000 mg PO Q6H PRN mild pain 09/25/25
ondansetron 8 mg disintegrating tablet 8 mg PO TIDPRN PRN nausea 09/25/25
sennosides 8.6 mg tablet (senna) 17.2 mg PO DAILY Constipation 09/25/25
amlodipine 5 mg tablet (Norvasc) 5 mg PO DAILY Blood Pressure 09/26/25
lidocaine 5 % topical patch (Lidoderm) 1 patch topical DAILY Pain 09/26/25
cefepime 1 gram solution for injection 1,000 mg IV QPM #0 ea 10/02/25
lorazepam 0.5 mg tablet 0.5 mg PO Q8HPRN PRN anxiety #8 tabs 10/02/25
methyl salicylate 15 %-menthol 10 % topical cream (Analgesic Tomales (m.salic-menthol)) 1 applic topical TID PRN Right lower rib pain #0 grams 10/02/25
miconazole nitrate 2 % topical powder (Miconazorb AF) 1 applic topical BID #0 grams 10/02/25
sertraline 50 mg tablet 75 mg (1.5 x 50 mg) PO DAILY #0 tabs 10/02/25
Home Medication Changes
cefepime 1 gram solution for injection 1,000 mg IV QPM #0 ea 10/02/25
lorazepam 0.5 mg tablet 0.5 mg PO Q8HPRN PRN anxiety #8 tabs 10/02/25
methyl salicylate 15 %-menthol 10 % topical cream (Analgesic Tomales (m.salic-menthol)) 1 applic topical TID PRN Right lower rib pain #0 grams 10/02/25
miconazole nitrate 2 % topical powder (Miconazorb AF) 1 applic topical BID #0 grams 10/02/25
sertraline 50 mg tablet 75 mg (1.5 x 50 mg) PO DAILY #0 tabs 10/02/25
Pending Results: No
--- NOTE | 2025-10-02 11:52 | W.PN.NEPH.HD ---
Assessment
-
Treatment tolerated okay for discharge from renal
Progress Note - Hemodialysis
-
Date of Service: October 02, 2025
Duration: 30 minutes and 3 hours
Potassium Bath: 3
Calcium Bath: 2.5
Opti-Dialyzer: 160
Ultrafiltration: Other (1.5kg)
Blood Flow: 400
Dialysate Flow: 600
Heparin: 0
EPO: 0
[2025-10-02 12:17] LABS: Glucose - Point of Care 135 mg/dl (70-99)
--- NOTE | 2025-10-02 12:20 | PTCARENOTE ---
Assumed care of pt from previous nurse. Pt for dc today at 1500. call storey is within reach, pt rings rachelle. will cont to monitor.
[2025-10-02] MEDS: NOVOLOG FLEXPEN-LOW RESISTANCE SC ×2 (13:45)
[2025-10-02] MEDS: VISBIOME 1 CAP PO (13:57)
[2025-10-02] MEDS: ELIQUIS 5 MG PO (13:57)
[2025-10-02] MEDS: MIRALAX PO (13:58)
[2025-10-02] MEDS: NORVASC 5 MG PO (14:07)
[2025-10-02] MEDS: PACERONE 200 MG PO (14:07)
[2025-10-02] MEDS: LIDOCAINE 4% PATCH 1 PATCH TOPICAL (14:08)
[2025-10-02] MEDS: ZOLOFT 75 MG PO (14:10)
[2025-10-02] MEDS: NEURONTIN 100 MG PO (14:10)
[2025-10-02] MEDS: DESENEX/MITRAZOL/ZEASORB TOPICAL (14:10)
[2025-10-02] MEDS: FLOMAX 0.4 MG PO (14:11)
[2025-10-02 15:00] VITALS: BP 137/68
[2025-10-02] MEDS: ATIVAN 0.5 MG PO (15:31)
--- NOTE | 2025-10-02 16:58 | PTCARENOTE ---
Pt report called to [facility]. All belongings with Pt, IV removed. Pt taken via ambulance
== END 2025-10-02 16:46 | DRG 183 ==
LOC: 4 WEST ACU 09:14
PROVIDERS: Hospitalist; Internal Medicine Nephrology; Physician Assistant Medical; ADMITTING PHYSICIAN Hospitalist; ATTENDING PHYSICIAN Internal Medicine; CONSULT PHYSICIAN Internal Medicine Infectious Disease; CONSULT PHYSICIAN Psychiatry & Neurology Psychiatry; CONSULT PHYSICIAN Specialist; EMERGENCY PHYSICIAN Student in an Organized Health Care Education/Training Program; FAMILY PHYSICIAN Family Medicine
PROC: 5A1D70Z Performance of Urinary Filtration, Intermittent, Less than 6 Hours Per Day (ICD-10-PCS; 2025-09-27)
DX: S22.41XA Multiple fractures of ribs, right side, initial encounter for closed fracture (principal); N18.6 End stage renal disease; I13.2 Hypertensive heart and chronic kidney disease with heart failure and with stage 5 chronic kidney disease, or end stage renal disease; N39.0 Urinary tract infection, site not specified; I50.32 Chronic diastolic (congestive) heart failure; J98.11 Atelectasis; N25.81 Secondary hyperparathyroidism of renal origin; F41.9 Anxiety disorder, unspecified; F32.A Depression, unspecified; Z99.2 Dependence on renal dialysis; I48.0 Paroxysmal atrial fibrillation; E11.40 Type 2 diabetes mellitus with diabetic neuropathy, unspecified; I45.10 Unspecified right bundle-branch block; I25.10 Atherosclerotic heart disease of native coronary artery without angina pectoris; Z95.5 Presence of coronary angioplasty implant and graft; Z86.73 Personal history of transient ischemic attack (TIA), and cerebral infarction without residual deficits; Z66 Do not resuscitate; R33.8 Other retention of urine; K59.03 Drug induced constipation; T40.605A Adverse effect of unspecified narcotics, initial encounter; Z88.0 Allergy status to penicillin; Z88.6 Allergy status to analgesic agent; Z88.3 Allergy status to other anti-infective agents; Z88.5 Allergy status to narcotic agent; Z88.2 Allergy status to sulfonamides; Z88.1 Allergy status to other antibiotic agents; Z79.899 Other long term (current) drug therapy; Z79.01 Long term (current) use of anticoagulants; Z79.4 Long term (current) use of insulin; Z87.440 Personal history of urinary (tract) infections; Z89.511 Acquired absence of right leg below knee; Z89.512 Acquired absence of left leg below knee; B96.5 Pseudomonas (aeruginosa) (mallei) (pseudomallei) as the cause of diseases classified elsewhere; D50.9 Iron deficiency anemia, unspecified; E11.22 Type 2 diabetes mellitus with diabetic chronic kidney disease; E78.00 Pure hypercholesterolemia, unspecified; I27.20 Pulmonary hypertension, unspecified; J45.909 Unspecified asthma, uncomplicated; K21.9 Gastro-esophageal reflux disease without esophagitis; K44.9 Diaphragmatic hernia without obstruction or gangrene; L89.312 Pressure ulcer of right buttock, stage 2; L89.156 Pressure-induced deep tissue damage of sacral region
CPT/HCPCS: 74177; 80048; 80053; 81003; 81015; 82962; 83690; 85025; 85027; 86706; 87077; 87086; 87186; 93005; 96361; 96374; 96375; 97163; 97167; 97530; 99284; G0257; P9047; Q9967